=== PATIENT | female | born 1945 | race Caucasian/White ===

== ENCOUNTER 2022-01-19 13:17 | Inpatient (IN) ==
--- NOTE | 2022-01-20 12:19 | History & Physical Report ---
Date of Service January 20, 2022 Assessment & Plan (1) Pneumonia: Plan: Community acquired pneumonia in a 76 yo female chronic smoker with possible mass in Right lower lobe. Concern over pleural effusions. Consider consult with pulmonary, however chest x ray was ordered and this did not reveal a pleural effusion. Will cancel pulmonary consult as patient is not interested in bronchoscopy. LAMA and LABA was ordered and this will be started today. Anticipate patient will continue to improve slowly. Procal is negative. will continue oral antibiotics and place on daily solumedrol. Plan for 2 step in AM. (2) Diabetes mellitus type 2 with complications, uncontrolled: Plan: consult glycemic control A1C ordered (3) Tobacco abuse: Plan: will hold off nictoine patch for now. (4) Hypertension: Plan: BP at goal. will defer to morning team restarting atenolol, HCTZ dvt: heparn. DNR/DNI Admission and Anticipated Discharge Date Admission Date: January 20, 2022 History of Present Illness Chief Complaint: No improvement for pneumonia Primary Care Provider: Devan Neil PA-C Patient is a 76 year old female with PMH of emphysema, DM2, breast cancer S/P lumpectomy, Hypertension who presented to the ED of [facility] on 01/14/22 with increased SOB and Altered mental Status. Patient is a chronic smoker, smokes >2 packs of cigarettes a day. Upon arrival, patient was 77% on room air. She required 6 liters via nasal cannula in order to achieve an SPO02 of 93%. Workuo included a Negative CTA of chest for P/E. However, it showed a cavitated mass in right lower lobe with bibasilar pneumonia, and extensive airspace disease. During her hospital stay, patient required vancomycin, zosyn and solumedrol 40 mg IV Q6H. Throughout hospital stay, she continued to require 4 liters of nasal cannula and repeat x-rays did not show much improvement. On 01/18, patient received lasix, however pleural effusons appeared worse. On 01/18 antibiotics were switched to PO augmentin, azithromycin. Allergies Allergy/AdvReac Type Severity Reaction Status Date / Time No Known Drug Allergies Allergy Unknown . Verified 07/04/10 15:30 codeine AdvReac Intermediate N/V Verified 07/04/10 15:30 Home Medications Medication Instructions Recorded Confirmed Type Atenolol (Tenormin) 50 mg PO DAILY ##0 11/04/09 History Hydrochlorothiazide (Hctz *) 25 mg PO DAILY ##0 11/04/09 History Albuterol (Proair Hfa) PRN ##0 06/08/10 History CHLOROHEXIDINE GLUCO BID ##0 06/08/10 History SF 500PLUSTOOTHPASTE BID ##0 06/08/10 History Aspirin Enteric Coated (Ecotrin Or 325 mg PO BID 42 days ##0 07/08/10 History Generic *) Celecoxib (Celebrex *) 200 mg PO DAILY ##0 07/08/10 History OXYCODONE/ACETAMINOPHEN 5MG/325MG 1 - 2 tabs PO Q4-6HR PRN ##0 07/08/10 History (PERCOCET 5MG/325MG) Past Med/Surg History Social History Smoking Status: Current every day smoker Tobacco Cessation Education Requested by Patient: No Hx Alcohol Use: No Hx Substance Use: No Preferred Language: Nepali Neonatal Pediatric Nurse Required: No Beliefs That Will Affect Care: None Current Living Situation: Alone Other Information That Helps Us Care for You: No Feels Safe at Home: Yes Safety Concerns: Feels Safe At This Time Assistive Devices: None Review of Systems Constitutional: no fever and no body aches Eyes: no blind spots Ear, Nose, Mouth, Throat: no ear pain Respiratory: + cough and + dyspnea Cardiovascular: no chest pain Gastrointestinal: no abdominal pain Genitourinary: no dysuria Musculoskeletal: no back pain Integumentary: no acne Neurologic: no gait abnormality Psychiatric: no behavioral changes Endocrine: no fatigue Hematologic / Lymphatic: no easy bleeding Allergy / Immunological: no GI upset with certain foods Physical Exam Constitutional: WD/WN, vitals as above Eyes: PERRL, conjunctivae normal, anicteric sclerae ENMT: external ear and nose normal, oropharynx normal Neck: trachea midline, no thyromegaly Respiratory: normal respiratory effort, lungs clear to auscultation Cardiovascular: Rate/Rhythm: regular rhythm and + tachycardic Gastrointestinal (Abdomen): normal bowel sounds, soft, nontender, no hepatosplenomegaly Musculoskeletal: no cyanosis or clubbing, extremities motor strength 5/5 Skin: no rashes, warm and dry Neurologic: PERRL, EOMI, accommodation nl, no face palsy, no dysarthria Psychiatric: A+Ox3, euthymic affect Lymphatic: no cervical or axillary lymphadenopathy Results & Data Results & Data ([facility]) Vital Signs (Past 12 Hours) Vital Signs Temp Pulse Resp BP Pulse Ox O2 Del Method O2 Flow Rate 01/20/22 12:00 36.6 C 109 H 18 121/77 93 Nasal Cannula 3 01/20/22 10:54 36.7 C 102 H 16 124/77 94 Room Air 3 PG Care Time/CCT Total # of Minutes Spent Total Time Spent with Patient: Total time spent is greater than 50% in coordination of care (as documented) at patient's floor/unit and/or counseling patient: Coding Level of Care Code 32166 Initial Inpt Care Lvl 3 Diagnoses Pneumonia J18.9 Diabetes mellitus type 2 with complications, uncontrolled Tobacco abuse Z72.0 Hypertension I10
[2022-01-20] MEDS ORDERED: DEXTROSE 50% 50 ML SYRINGE IV PRN (13:20)
[2022-01-20] MEDS ORDERED: GLUCAGON FOR INJ 1 MG VIAL SQ PRN (13:20)
[2022-01-20] MEDS ORDERED: GLUCOSE 40% GEL 15 GM TUBE PO PRN (13:20)
[2022-01-20] MEDS ORDERED: GLUCOSE 10 TAB/TUBE PO PRN (13:20)
[2022-01-20] MEDS ORDERED: CARBOHYDRATES FOR HYPOGLYCEMIA PO PRN (13:20)
[2022-01-20 14:34] LABS: Basophils # (auto) 0.07 K/uL (0-0.2); Basophils % (auto) 0.5 %; Hematocrit (blood only) 46.3 % (34.1-44.9); Immature Granulocytes # (auto) 0.39 K/uL (0.00-0.02); Immature Granulocytes % (auto) 2.6 %; Lymphocytes % (auto) 7.4 %; Mean Corpuscular Hemoglobin 30.1 pg (25.0-34.0); Mean Corpuscular Hgb Conc 32.4 g/dL (32.0-36.0); Mean Platelet Volume 10.7 fL (9.4-12.3); Monocytes # (auto) 0.42 K/uL (0.24-0.82); Monocytes % (auto) 2.8 %; Neutrophils # (auto) 12.93 K/uL (1.4-6.5); Neutrophils % (auto) 86.7 %; Platelet Count 319 K/uL (130-400); RDW Coefficient of Variation 13.3 % (11.5-14.5); RDW Standard Deviation 45.2 fL (36.4-46.3); Red Blood Count 4.98 M/uL (3.93-5.22); White Blood Count 14.91 K/ul (4.8-10.8)
--- NOTE | 2022-01-20 14:45 | XRay Report ---
TWO VIEW CHEST CLINICAL HISTORY: Pleural effusions. FINDINGS: PA and lateral chest radiographs are compared to study dated 01/18/2022 and correlated with chest CT dated 01/13/2022. The heart is enlarged noting atherosclerotic calcification of the thoracic a meet. The pulmonary vasculature is noncongested. Emphysema and chronic interstitial thickening is sim ilar to previous. Right perihilar and basilar consolidation is likely unchanged from previous. There is also mild consolidative change at the left lung base. No pleural effusion or pneumothorax is seen. The skeletal structures are osteopenic. The bony thorax appears intact. Spondylotic change is seen t hroughout the thoracic spine. IMPRESSION: 1. Cardiomegaly and emphysema. 2. Right perihilar and basilar consolidation is likely unchanged from previous and was better charact erized on the 01/13/2022 CT scan. Correlate clinically for evidence of pneumonia/aspiration pneumonitis . Radiographic follow-up to resolution is recommended, as is a repeat chest CT in 1-2 months time to exclude the possibility of underlying neoplasm. 3. Minimal consolidation is seen at the left lung base. 4. No pleural effusion is identified. ACT 112: Positive. There are findings on this exam that require communication between the performing entity and the patient following Patient Test Result Information Act ([place] Act 112) guidelines. Electronically signed by: Tevin English M.D. 01/20/2022 2:44 PM
[2022-01-20 14:59] LABS: Estimated Average Glucose 171 mg/dl; Hemoglobin A1C 7.6 % (4.5-5.6)
[2022-01-20 15:06] LABS: Alanine Aminotransferase 13 U/L (7-52); Albumin Globulin Ratio 1.2 (0.9-2); Albumin Level 3.3 gm/dl (3.4-5.0); Alkaline Phosphatase 64 U/L (34-104); Aspartate Aminotransferase 10 U/L (13-39); BUN Creatinine Ratio 37.1 (10-20); Bilirubin,Total 0.5 mg/dl (0.2-1.0); Blood Urea Nitrogen 39 mg/dl (6-23); C Reactive Protein 1.09 mg/dl (0-0.5); Calcium 9.7 mg/dl (8.5-10.1); Carbon Dioxide > 45 mmol/L (21-32); Chloride 82 mmol/L (98-107); Creatinine Clr Calc Pharmacy 39.4 ml/min; Est GFR (African American) 58.9 ml/min; Est GFR (Non-African American) 50.8 ml/min; Globulin 2.8 gm/dl (2.5-4.0); Glucose 379 mg/dl (70-99(Fasting)); Potassium 4.4 mmol/L (3.5-5.1); Sodium 140 mmol/L (136-145); Total Protein 6.1 gm/dl (6.0-8.3)
[2022-01-20] MEDS ORDERED: PHARMACY GLYCEMIC MGMT CONSULT PRN (15:11)
[2022-01-20 15:37] LABS: Base Excess VBG 28.8 mEq/L; HCO3 VBG 58 mmol/L; Oxygen Saturation VBG 77.9 %; PCO2 VBG 76 mmHg (38-50); PO2 VBG 44 mmHg; pH VBG 7.49 (7.36-7.41)
[2022-01-20] MEDS ORDERED: INSULIN HUMAN REGULAR PER UNIT 5 UNITS in SYRINGE 4.95 ML IV ONE (17:15)
[2022-01-20] MEDS ORDERED: LANTUS PER UNIT CHARGE SQ ONE (17:15)
[2022-01-20] MEDS: UMECLIDINIUM/VILANTEROL 62.5/25MCG 7 PUFFS/INHALER INH SCH (17:26)
[2022-01-20] MEDS: INSULIN ASPART PER UNIT SC SCH ×2 (17:37→20:21)
[2022-01-20] MEDS: AMOXICILLIN/CLAVULANATE 875 MG TAB PO SCH (17:40)
[2022-01-20] MEDS: guaiFENesin 600 MG TABCR PO SCH (20:20)
[2022-01-20] MEDS: HEPARIN SOD 5,000 UNIT/0.5 ML VIAL SQ SCH (20:20)
[2022-01-21 07:29] LABS: Hematocrit (blood only) 49.4 % (34.1-44.9); Hemoglobin 15.7 g/dl (12.0-16.0); Mean Corpuscular Hemoglobin 29.9 pg (25.0-34.0); Mean Corpuscular Hgb Conc 31.8 g/dL (32.0-36.0); Mean Corpuscular Volume 94.1 fL (80.0-100.0); Mean Platelet Volume 10.2 fL (9.4-12.3); Platelet Count 325 K/uL (130-400); RDW Coefficient of Variation 13.4 % (11.5-14.5); RDW Standard Deviation 46.9 fL (36.4-46.3); Red Blood Count 5.25 M/uL (3.93-5.22); White Blood Count 14.76 K/ul (4.8-10.8)
--- NOTE | 2022-01-21 07:47 | Hospitalist Progress Note ---
Date of Service January 21, 2022 Assessment & Plan (1) Pneumonia: Plan: necrotizing pneumonia (however has been inpatient at outside hospital for past week) in a 76 yo female chronic smoker 22pd with possible mass in Right lower lobe/cavitating lesion in patient with hx breast lump/cancer s/p lumpectomy CT chest (prior CTA for PE negative outside facility) * 1. Interval decrease in size in the 4.8 x 3.4 cm irregular cavitary lesion within the right lower lobe as well as the additional 2.4 x 1.7 cm irregular nodule within the base the right lower lobe. These could related to an atypical infectious process such as a fungal infection or aspiration pneumonia given the decrease in size. However, a primary bronchogenic malignancy remains the diagnosis of exclusion for the larger cavitary lesion. Pulmonary consultation advised * 2. Significant improvement/resolution in the airspace opacities within the lung bases suggestive of a resolving pneumonia. * 3. Auxl-vq-rhukigjc emphysema again noted. * 4. A 3.1 cm round cystic focus within the right breast upper-outer quadrant/axilla. This remains unchanged. This could represent a postoperative seroma. A necrotic lymph node is considered less likely but not entirely excluded. This bears watching on future examinations. Breast does not appear infected, however in patient with recent R partial lumpectomy, not on chemo, did not receive radiation, Due to cavitary lesion, quantiferon gold testing sent, however pulmonary eval feels risk of TB is low, will have out of isolation 01/22/22 Remains on newly started LABA/LAMA, uses rescue inhaler at times at home Titrate O2 to maintain sats -- currently 90% on 3L Will need 2 step prior to dc (2) Breast cancer: Plan: reported hx of such, details unclear occurred R partial mastectomy sometime in 2020, call out to daughter for information as patient not on any oral chemotherapy and reportedly did not undergo any radiation (3) Tobacco abuse: Plan: will hold off nictoine patch for now. (4) Diabetes mellitus type 2 with complications, uncontrolled: Plan: consult glycemic control as BSgs elevated significantly to the 300s yesterday (likely from steroids) A1c obtained at 7.6 BSGs improved and appreciate continued glycemic management (5) Hypertension: Plan: BP at goal. atenolol for HR control, however holding HCTZ as slightly dehydrated dvt: heparn. DNR/DNI Admission and Anticipated Discharge Date Admission Date: January 20, 2022 Subjective Patient evaluated this morning, moved to isolation for airborne to room 106. Repeat CT chest reviewed with patient -- she is current 2ppd smoker as when asked if smokes "if I can get one". Did have history of lumpectomy last year, unsure of where this was completed. Still remains on oxygen but does not wear at home. Does endorse a "puffer" she uses for rescue from time to time. Currently no increased shortness of breath/cough/sputum production but hasn't been up out of bed much. Discussed possible TB testing as well as fungal appearance and asking pulmonary to weigh in/start antifungals but also concerns for underlying malignancy. No recent unexplained weight loss/night sweats that the patient recalls. No i ncreased LE edema/calf swelling or calf pain. Prior CT for PE at outside hospital negative for PE. Review of Systems Review of Systems: All systems reviewed & are unremarkable except as noted in HPI & below Physical Exam Physical Exam: General: WD, frail, chronically ill appearing female sitting up in bed, NAD HEENT: eyes anicteric, mm slightly dry, trachea midline without deviation Chest: s/p R partial mastectomy, no erythema/drainage, some axillary lymphadenopathy Resp: not tachypneic, no cough, able to speak in complete sentences, breath sounds diminished throughout, scattered crackles, coarse breath sounds, faint end expiratory wheezing, SpO2 90% on 3L NC, clubbing of nails CV: tachycardic, regular, no m/r/g, no calf edema/tenderness, pulses palpable GI: +BS, soft, nontender MSK/Neuro: moves all extremities, no focal deficit, no slurred speech or facial droop, no clonus Psych: alert and oriented to person/knows she is in the hospital, year Skin: cool, dry Results & Data Results & Data ([facility]) Vital Signs (Past 12 Hours) Vital Signs Temp Pulse Pulse Resp BP Pulse Ox O2 Del Method 01/21/22 07:44 36.7 C 93 H 18 136/84 94 01/21/22 07:15 93 H 01/21/22 03:30 36.8 C 87 20 161/90 H 96 01/20/22 23:37 36.8 C 99 H 20 134/78 96 01/20/22 22:15 100 H 01/20/22 21:00 Nasal Cannula O2 Flow Rate 01/21/22 07:44 3 01/21/22 07:15 01/21/22 03:30 2 01/20/22 23:37 2 01/20/22 22:15 01/20/22 21:00 3 Diagnostic Findings Chest X-Ray 01/20/22 13:13 TWO VIEW CHEST CLINICAL HISTORY: Pleural effusions. FINDINGS: PA and lateral chest radiographs are compared to study dated 01/18/2022 and correlated with chest CT dated 01/13/2022. The heart is enlarged noting atherosclerotic calcification of the thoracic aorta. The pulmonary vasculature is noncongested. Emphysema and chronic interstitial thickening is similar to previous. Right perihilar and basilar consolidation is likely unchanged from previous. There is also mild consolidative change at the left lung base. No pleural effusion or pneumothorax is seen. The skeletal structures are osteopenic. The bony thorax appears intact. Spondylotic change is seen throughout the thoracic spine. IMPRESSION: 1. Cardiomegaly and emphysema. 2. Right perihilar and basilar consolidation is likely unchanged from previous and was better characterized on the 01/13/2022 CT scan. Correlate clinically for evidence of pneumonia/aspiration pneumonitis. Radiographic follow-up to resolution is recommended, as is a repeat chest CT in 1-2 months time to exclude the possibility of underlying neoplasm. 3. Minimal consolidation is seen at the left lung base. 4. No pleural effusion is identified. ACT 112: Positive. There are findings on this exam that require communication between the performing entity and the patient following Patient Test Result Information Act ([place] Act 112) guidelines. Electronically signed by: Tevin English M.D. 01/20/2022 2:[address] 01/21/22 09:[address] WITH CONTRAST CT DOSE: 680.15 mGy.cm HISTORY: Abnormal chest x-ray. eval consolidative mass, hx breast ca s/p R lumpec TECHNIQUE: Multiaxial CT images of the chest were performed following the intravenous administration of contrast. A dose lowering technique was utilized adhering to the principles of ALARA. COMPARISON: Outside hospital chest CTA 01/13/2022. FINDINGS: No fractures within the visualized osseous structures. No suspicious lytic are blastic osseous lesions. No pneumothorax. Moderate emphysema is again noted. No pleural effusions. Interval improvement in the airspace opacities throughout the right lung. However, there is a thick-walled cavitary lesion remaining within the superior segment of the right lower lobe which abuts the pleural surface. This measures approximately 4.8 x 3.4 cm. This previously measured 6.4 cm. This also abuts the major fissure. There is a second focal irregular consolidation within the base the right lower lobe which has also decreased in size and measures 2.4 x 1.7 cm. This previously measured 3 cm. This appears to demonstrate a small focus of central necrosis. The central airways are patent. Calcified granuloma again noted within the right lower lobe. No new focal lung consolidations identified. The thyroid gland enhances normally. Calcified subcarinal and right hilar lymph nodes. No mediastinal or hilar lymphadenopathy. The central pulmonary arteries are patent. Moderate calcified plaque within the normal caliber thoracic aorta. No evidence for an aortic dissection. The heart is borderline enlarged. No pericardial effusion. Postoperative changes noted within the right breast. There is a 3.1 cm round cystic focus within the right breast upper-outer quadrant/axilla. This is not significantly changed and. Limited views of the upper abdomen demonstrate a normal liver, spleen, and adrenal glands. IMPRESSION: 1. Interval decrease in size in the 4.8 x 3.4 cm irregular cavitary lesion within the right lower lobe as well as the additional 2.4 x 1.7 cm irregular nodule within the base the right lower lobe. These could related to an atypical infectious process such as a fungal infection or aspiration pneumonia given the decrease in size. However, a primary bronchogenic malignancy remains the diagnosis of exclusion for the larger cavitary lesion. Pulmonary consultation advised 2. Significant improvement/resolution in the airspace opacities within the lung bases suggestive of a resolving pneumonia. 3. Ddap-hw-bbvcyzjg emphysema again noted. 4. A 3.1 cm round cystic focus within the right breast upper-outer quadrant/axilla. This remains unchanged. This could represent a postoperative seroma. A necrotic lymph node is considered less likely but not entirely excluded. This bears watching on future examinations. ACT 112: Negative or not required by law. Electronically signed by: Balbir Kent M.D. 01/21/2022 10:19 AM PG Care Time/CCT Total # of Minutes Spent Total Time Spent with Patient: Total time spent is greater than 50% in coordination of care (as documented) at patient's floor/unit and/or counseling patient: Coding Level of Care Code 06771 Subseq Hosp Care Lvl 3 Diagnoses Pneumonia J18.9 Breast cancer C50.919 Tobacco abuse Z72.0 Diabetes mellitus type 2 with complications, uncontrolled Hypertension I10
[2022-01-21 08:35] LABS: BUN Creatinine Ratio 44.3 (10-20); Blood Urea Nitrogen 43 mg/dl (6-23); Calcium 9.9 mg/dl (8.5-10.1); Carbon Dioxide > 45 mmol/L (21-32); Chloride 87 mmol/L (98-107); Creatinine Clr Calc Pharmacy 42.6 ml/min; Est GFR (African American) 64.8 ml/min; Est GFR (Non-African American) 55.9 ml/min; Glucose 90 mg/dl (70-99(Fasting)); Potassium 3.4 mmol/L (3.5-5.1); Sodium 143 mmol/L (136-145)
[2022-01-21] MEDS ORDERED: AZITHROMYCIN 250 MG TAB PO SCH (09:00)
[2022-01-21] MEDS ORDERED: methylPREDNISolone 40 MG in SYRINGE 0 ML IV SCH (09:00)
[2022-01-21] MEDS ORDERED: POTASSIUM CHLORIDE CRTAB 20 MEQ TABCR PO STA (09:04)
[2022-01-21] MEDS: AMOXICILLIN/CLAVULANATE 875 MG TAB PO SCH ×2 (09:06→18:00)
[2022-01-21] MEDS: INSULIN ASPART PER UNIT SC SCH ×4 (09:06→20:39)
[2022-01-21] MEDS: UMECLIDINIUM/VILANTEROL 62.5/25MCG 7 PUFFS/INHALER INH SCH (09:07)
[2022-01-21] MEDS: ASPIRIN 81 MG ECTAB PO SCH (09:07)
[2022-01-21] MEDS: guaiFENesin 600 MG TABCR PO SCH ×2 (09:07→20:39)
[2022-01-21] MEDS: HEPARIN SOD 5,000 UNIT/0.5 ML VIAL SQ SCH ×2 (09:12→20:39)
[2022-01-21] MEDS ORDERED: ATENOLOL 50 MG TABLET PO SCH (09:15)
[2022-01-21] MEDS ORDERED: OPTIRAY 320 100ml IV ONE (09:59)
--- NOTE | 2022-01-21 10:21 | CT Scan Report ---
CHEST CT WITH CONTRAST CT DOSE: 680.15 mGy.cm HISTORY: Abnormal chest x-ray. eval consolidative mass, hx breast ca s/p R lumpec TECHNIQUE: Multiaxial CT images of the chest were performed following the intravenous administration of contrast. A dose lowering technique was utilized adhering to the principles of ALARA. COMPARISON: Outside hospital chest CTA 01/13/2022. FINDINGS: No fractures within the visualized osseous structures. No suspicious lytic are blastic osse ous lesions. No pneumothorax. Moderate emphysema is again noted. No pleural effusions. Interval impro vement in the airspace opacities throughout the right lung. However, there is a thick-walled cavitary lesion remaining within the superior segment of the right lower lobe which abuts the pleural surface . This measures approximately 4.8 x 3.4 cm. This previously measured 6.4 cm. This also abuts the alexis r fissure. There is a second focal irregular consolidation within the base the right lower lobe which has also decreased in size and measures 2.4 x 1.7 cm. This previously measured 3 cm. This appears to demonstrate a small focus of central necrosis. The central airways are patent. Calcified granuloma a gain noted within the right lower lobe. No new focal lung consolidations identified. The thyroid glan d enhances normally. Calcified subcarinal and right hilar lymph nodes. No mediastinal or hilar lympha denopathy. The central pulmonary arteries are patent. Moderate calcified plaque within the normal carla iber thoracic aorta. No evidence for an aortic dissection. The heart is borderline enlarged. No peric ardial effusion. Postoperative changes noted within the right breast. There is a 3.1 cm round cystic focus within the right breast upper-outer quadrant/axilla. This is not significantly changed and. Faria ited views of the upper abdomen demonstrate a normal liver, spleen, and adrenal glands. IMPRESSION: 1. Interval decrease in size in the 4.8 x 3.4 cm irregular cavitary lesion within the right lower lob e as well as the additional 2.4 x 1.7 cm irregular nodule within the base the right lower lobe. These could related to an atypical infectious process such as a fungal infection or aspiration pneumonia g iven the decrease in size. However, a primary bronchogenic malignancy remains the diagnosis of exclus ion for the larger cavitary lesion. Pulmonary consultation advised 2. Significant improvement/resolution in the airspace opacities within the lung bases suggestive of a resolving pneumonia. 3. Lriy-ds-jecgupyq emphysema again noted. 4. A 3.1 cm round cystic focus within the right breast upper-outer quadrant/axilla. This remains unch anged. This could represent a postoperative seroma. A necrotic lymph node is considered less likely b ut not entirely excluded. This bears watching on future examinations. ACT 112: Negative or not required by law. Electronically signed by: Balbir Kent M.D. 01/21/2022 10:19 AM
[2022-01-21] MEDS ORDERED: VANCOMYCIN CONSULT ACTIVE PRN (10:51)
[2022-01-21] MEDS ORDERED: CEFEPIME 2,000 MG in SYRINGE 0 ML IV SCH (11:00)
[2022-01-21] MEDS ORDERED: VANCOMYCIN HCL 1,500 MG in SODIUM CHLORIDE 0.9% 500 ML IV ONE (11:30)
[2022-01-21] MEDS: FAMOTIDINE 20 MG in SYRINGE 3 ML IV SCH (11:38)
--- NOTE | 2022-01-21 12:05 | Pharmacy Report ---
Pharmacy PK ABX Note - Date of Service January 21, 2022 - Assessment and Plan Assessment 76 year old F receiving vancomycin/cefepime for treatment of cavitary pulmonary lesion. Pertinent microbiologic data includes: N/A. Day # 1 of antimicrobial therapy. Plan Vancomycin * Loading dose: 1500 mg IV every 24 hours * Maintenance dose: 1000 mg IV every 12 hours * Patient was on vancomycin 1000 mg IV q18 with a resultant trough of 12.2 - will start with vancomycin 1 gm IV q12 and order random level * Random level ordered for: 01/22/22 Pharmacy will continue to follow and will adjust dose/frequency as necessary. Thank you. Pharmacy has transitioned to AUC monitoring for vancomycin. AUC/BOB is the preferred PK/PD target and is associated with decreased risk of nephrotoxicity compared to traditional trough targets.
--- NOTE | 2022-01-21 12:43 | Pulmonary Consultation ---
Date of Consultation January 21, 2022 Assessment & Plan (1) Pneumonia: (2) Abnormal CT scan of lung: (3) COPD (chronic obstructive pulmonary disease): Plan Impression: 76-year-old female with history of tobacco abuse admitted with what appears to be necrotizing pneumonia or lung abscess. Short interval follow-up CT scan is demonstrated significant improvement in the radiographic abnormalities with treatment with antimicrobial agents. Cannot exclude an underlying malignancy. The patient does not want aggressive interventions performed including bronchoscopy. Given her clinical and radiographic improvement, would recommend completing a course of antibiotics and a short interval surveillance follow-up CT scan as noted below. Recommendations: 1. Lung abscess/necrotizing pneumonia: No indication for additional parenteral antibiotics. Agree with transition to Augmentin. Would recommend completing 4 to 6 weeks of antimicrobial therapy. Suspicion for other etiologies including fungal pneumonia or tuberculosis is quite low given the patient's clinical and radiographic improvement with antimicrobial therapy targeting only bacteria. I do not believe the patient requires respiratory isolation as she has no TB contacts, no other signs or symptoms to suggest tuberculosis, and again has had significant improvement without antituberculosis therapy. Will defer to the primary service. QuantiFERON has been sent and will await receipt. 2. She should have a follow-up noncontrast CT scan of the chest performed in 8 to 10 weeks. If the lesion persists, additional evaluation could be conducted including consideration of PET scan. The patient unfortunately expresses a reluctance to consider any invasive procedures including bronchoscopy or biopsy. 3. Agree with following up on her history of breast cancer as does not appear to be well delineated in her current electronic medical record. In addition, the patient relates that she has had prior pulmonary evaluations conducted. Finding out where these evaluations were conducted and getting copies of those records would be beneficial with regards to her underlying COPD. Smoking cessation was recommended to the patient. Outpatient pulmonary function testing may be performed if clinically appropriate. 4. The patient may require supplemental oxygen at discharge. She can continue to follow with her outpatient sports journalist although again were not able to ascertain who sees her or where she is seen 5. COPD: Severity unknown. She is not bronchospastic currently. No indication for additional steroids. Anoro scheduled and as needed albuterol/Atrovent. The above recommendations and plan were discussed with the patient at bedside. Questions were answered the best my ability. This point time I think the patient requires a prolonged course of antibiotics. She can likely be dismissed from the hospital with outpatient follow-up with her established sports journalist and primary care provider. Feel free to contact us with questions or concerns. Will sign off. History of Present Illness Attending Physician: Devan Kennedy MD History of Present Illness Asked by hospitalist to evaluate this patient with an abnormal CT scan. History is obtained from review of the electronic medical record and discussion with the hospitalists. The patient is not a reliable historian. Patient is a 76-year-old female with a history of tobacco abuse who reportedly is seen in the outpatient setting by a pulmonary provider but the patient cannot elucidate who she sees or where she sees them. There are no clinical notes in our system. The patient was admitted to [facility] ED 01/14/2022 with shortness of breath and altered mental status. She was hypoxemic. Chest x-ray showed a probable lung abscess in the right lower lobe. The patient was treated with vancomycin and Zosyn and Solu-Medrol. She remained hypoxemic and due to failure of the x-ray to respond, the patient was transferred here. Initially the patient was transferred here for thoracentesis however follow-up chest x-ray here demonstrated no significant pleural fluid. Prior to transfer the patient was placed on oral Augmentin and azithromycin. Since arriving here, the patient was transferred to [facility] due to concern about tuberculosis. She also had a follow-up CT scan performed which revealed significant improvement in the right lower lobe cavitary lesion consistent with response to antimicrobial therapy. The patient is not experiencing any hemoptysis. She states that she has a chronically productive cough and produces scant amount of white phlegm on a regular basis. She cannot tell me whether she has had prior pulmonary function testing performed. The patient has not had any known contacts with tuberculosis. She denies any fevers chills night sweats or unintentional weight loss. Her appetite is good. Her energy level is stable. Patient declines aggressive intervention including bronchoscopy or intubation if it were to be necessary. Allergies Allergy/AdvReac Type Severity Reaction Status Date / Time No Known Drug Allergies Allergy Unknown . Verified 07/04/10 15:30 codeine AdvReac Intermediate N/V Verified 07/04/10 15:30 Home Medications Medication Instructions Recorded Confirmed Type Atenolol (Tenormin) 50 mg PO DAILY ##0 11/04/09 History Hydrochlorothiazide (Hctz *) 25 mg PO DAILY ##0 11/04/09 History Albuterol (Proair Hfa) PRN ##0 06/08/10 History CHLOROHEXIDINE GLUCO BID ##0 06/08/10 History SF 500PLUSTOOTHPASTE BID ##0 06/08/10 History Aspirin Enteric Coated (Ecotrin Or 325 mg PO BID 42 days ##0 07/08/10 History Generic *) Celecoxib (Celebrex *) 200 mg PO DAILY ##0 07/08/10 History OXYCODONE/ACETAMINOPHEN 5MG/325MG 1 - 2 tabs PO Q4-6HR PRN ##0 07/08/10 History (PERCOCET 5MG/325MG) Patient History Social History Smoking Status: Current every day smoker Tobacco Cessation Education Requested by Patient: No Hx Alcohol Use: No Hx Substance Use: No Preferred Language: Dutch Siderographist Required: No Beliefs That Will Affect Care: None Current Living Situation: Alone Other Information That Helps Us Care for You: No Feels Safe at Home: Yes Safety Concerns: Feels Safe At This Time Assistive Devices: None Review of Systems Review of Systems: Please refer to admission H&P. No additions or deletions Physical Exam Constitutional: WD/WN, vitals as above Eyes: PERRL, conjunctivae normal, anicteric sclerae ENMT: external ear and nose normal, oropharynx normal Neck: trachea midline, no thyromegaly Respiratory: normal respiratory effort, lungs clear to auscultation Cardiovascular: Rate/Rhythm: regular rhythm and + tachycardic Gastrointestinal (Abdomen): normal bowel sounds, soft, nontender, no hepatosplenomegaly Musculoskeletal: no cyanosis or clubbing, extremities motor strength 5/5 Skin: no rashes, warm and dry Neurologic: PERRL, EOMI, accommodation nl, no face palsy, no dysarthria Psychiatric: A+Ox3, euthymic affect Lymphatic: no cervical or axillary lymphadenopathy Results & Data Results & Data ([facility]) Vital Signs (Past 12 Hours) Vital Signs Temp Pulse Pulse Resp BP BP Pulse Ox 01/21/22 08:00 01/21/22 10:09 103 H 24 132/63 90 01/21/22 10:00 01/21/22 07:44 36.7 C 93 H 18 136/84 94 07/16/22 07:15 93 H 01/21/22 03:30 36.8 C 87 20 161/90 H 96 O2 Del Method O2 Flow Rate 01/21/22 08:00 Nasal Cannula 3 01/21/22 10:09 Nasal Cannula 3 01/21/22 10:00 Nasal Cannula 3 01/21/22 07:44 3 01/21/22 07:15 01/21/22 03:30 2 Critical Care Results & Data Vital Signs (Past 12 Hours) Vital Signs Temp Pulse Pulse Resp BP BP Pulse Ox 01/21/22 08:00 01/21/22 10:09 103 H 24 132/63 90 01/21/22 10:00 01/21/22 07:44 36.7 C 93 H 18 136/84 94 01/21/22 07:15 93 H 01/21/22 03:30 36.8 C 87 20 161/90 H 96 O2 Del Method O2 Flow Rate 01/21/22 08:00 Nasal Cannula 3 01/21/22 10:09 Nasal Cannula 3 01/21/22 10:00 Nasal Cannula 3 01/21/22 07:44 3 01/21/22 07:15 01/21/22 03:30 2 Lab & Micro Results (Past 24 Hours) RBC 5.25 M/uL (3.93-5.22) H 01/21/22 WBC 14.76 K/ul (4.8-10.8) H 01/21/22 Hgb 15.7 g/dl (12.0-16.0) 01/21/22 Hct 49.4 % (34.1-44.9) H 01/21/22 MCV 94.1 fL (80.0-100.0) 01/21/22 MCH 29.9 pg (25.0-34.0) 01/21/22 MCHC 31.8 g/dL (32.0-36.0) L 01/21/22 RDW Standard Deviation 46.9 fL (36.4-46.3) H 01/21/22 RDW Coefficient of Variation 13.4 % (11.5-14.5) 01/21/22 Plt Count 325 K/uL (130-400) 01/21/22 MPV 10.2 fL (9.4-12.3) 01/21/22 Neutrophils (%) (Auto) 86.7 % 01/20/22 Lymphocytes (%) (Auto) 7.4 % 01/20/22 Monocytes # (Auto) 0.42 K/uL (0.24-0.82) 01/20/22 Eosinophils # (Auto) 0.00 K/uL (0-0.50) 01/20/22 Immature Granulocyte % (Auto) 2.6 % 01/20/22 Neutrophils # (Auto) 12.93 K/uL (1.4-6.5) H 01/20/22 Lymphocytes # (Auto) 1.10 K/uL (1.2-3.4) L 01/20/22 Monocytes # (Auto) 0.42 K/uL (0.24-0.82) 01/20/22 Eosinophils # (Auto) 0.00 K/uL (0-0.50) 01/20/22 Basophils # (Auto) 0.07 K/uL (0-0.2) 01/20/22 Immature Granulocyte # (Auto) 0.39 K/uL (0.00-0.02) H 01/20 Na 143 mmol/L (136-145) 01/21/22 K 3.4 mmol/L (3.5-5.1) L 01/21/22 Cl 87 mmol/L (98-107) L 01/21/22 CO2 > 45 mmol/L (21-32) H* 01/21/22 Anion Gap TNP 01/21/22 BUN 43 mg/dl (6-23) H 01/21/22 Creatinine 0.97 mg/dl (0.6-1.2) 01/21/22 Estimated GFR ( Amer) 64.8 ml/min 01/21/22 Estimated GFR (Non-Af Amer) 55.9 ml/min 01/21/22 BUN/Creatinine Ratio 44.3 (10-20) H 01/21/22 Glu 90 mg/dl (70-99(Fasting)) 01/21/22 Ca 9.9 mg/dl (8.5-10.1) 01/21/22 Total Bilirubin 0.5 mg/dl (0.2-1.0) 01/20/22 AST 10 U/L (13-39) L 01/20/22 ALT 13 U/L (7-52) 01/20/22 Alkaline Phosphatase 64 U/L (34-104) 01/20/22 TP 6.1 gm/dl (6.0-8.3) 01/20/22 Albumin 3.3 gm/dl (3.4-5.0) L 01/20/22 Globulin 2.8 gm/dl (2.5-4.0) 01/20/22 Albumin/Globulin Ratio 1.2 (0.9-2) 01/20/22 Mg 2.1 mg/dl (1.7-2.4) 01/21/22 07:10 Calcium Level 9.9 mg/dl (8.5-10.1) 01/21/22 07:10 Venous Blood pH 7.49 (7.36-7.41) H 01/20/22 15: Venous Blood Partial Pressure CO2 76 mmHg (38-50) H 01/20/22 : Venous Blood Partial Pressure O2 44 mmHg 01/20/22: Venous Blood HCO3 58 mmol/L 01/20/22: Venous Blood Base Excess 28.8 mEq/L 01/20/22: Venous Blood Oxygen Saturation 77.9 % 01/20/22 15: Diagnostic Findings (Past 24 Hours) Chest X-Ray 01/20/22 13:13 TWO VIEW CHEST CLINICAL HISTORY: Pleural effusions. FINDINGS: PA and lateral chest radiographs are compared to study dated 01/18/2022 and correlated with chest CT dated 01/13/2022. The heart is enlarged noting atherosclerotic calcification of the thoracic aorta. The pulmonary vasculature is noncongested. Emphysema and chronic interstitial thickening is similar to previous. Right perihilar and basilar consolidation is likely unchanged from previous. There is also mild consolidative change at the left lung base. No pleural effusion or pneumothorax is seen. The skeletal structures are osteopenic. The bony thorax appears intact. Spondylotic change is seen throughout the thoracic spine. IMPRESSION: 1. Cardiomegaly and emphysema. 2. Right perihilar and basilar consolidation is likely unchanged from previous and was better characterized on the 01/13/2022 CT scan. Correlate clinically for evidence of pneumonia/aspiration pneumonitis. Radiographic follow-up to resolution is recommended, as is a repeat chest CT in 1-2 months time to exclude the possibility of underlying neoplasm. 3. Minimal consolidation is seen at the left lung base. 4. No pleural effusion is identified. ACT 112: Positive. There are findings on this exam that require communication between the performing entity and the patient following Patient Test Result Information Act ([place] Act 112) guidelines. Electronically signed by: Tevin English M.D. 01/20/2022 2:[address] 01/21/22 09:[address] WITH CONTRAST CT DOSE: 680.15 mGy.cm HISTORY: Abnormal chest x-ray. eval consolidative mass, hx breast ca s/p R lumpec TECHNIQUE: Multiaxial CT images of the chest were performed following the intravenous administration of contrast. A dose lowering technique was utilized adhering to the principles of ALARA. COMPARISON: Outside hospital chest CTA 01/13/2022. FINDINGS: No fractures within the visualized osseous structures. No suspicious lytic are blastic osseous lesions. No pneumothorax. Moderate emphysema is again noted. No pleural effusions. Interval improvement in the airspace opacities throughout the right lung. However, there is a thick-walled cavitary lesion remaining within the superior segment of the right lower lobe which abuts the pleural surface. This measures approximately 4.8 x 3.4 cm. This previously measured 6.4 cm. This also abuts the major fissure. There is a second focal irregular consolidation within the base the right lower lobe which has also decreased in size and measures 2.4 x 1.7 cm. This previously measured 3 cm. This appears to demonstrate a small focus of central necrosis. The central airways are patent. Calcified granuloma again noted within the right lower lobe. No new focal lung consolidations identified. The thyroid gland enhances normally. Calcified subcarinal and right hilar lymph nodes. No mediastinal or hilar lymphadenopathy. The central pulmonary arteries are patent. Moderate calcified plaque within the normal caliber thoracic aorta. No evidence for an aortic dissection. The heart is borderline enlarged. No pericardial effusion. Postoperative changes noted within the right breast. There is a 3.1 cm round cystic focus within the right breast upper-outer quadrant/axilla. This is not significantly changed and. Limited views of the upper abdomen demonstrate a normal liver, spleen, and adrenal glands. IMPRESSION: 1. Interval decrease in size in the 4.8 x 3.4 cm irregular cavitary lesion within the right lower lobe as well as the additional 2.4 x 1.7 cm irregular nodule within the base the right lower lobe. These could related to an atypical infectious process such as a fungal infection or aspiration pneumonia given the decrease in size. However, a primary bronchogenic malignancy remains the d iagnosis of exclusion for the larger cavitary lesion. Pulmonary consultation advised 2. Significant improvement/resolution in the airspace opacities within the lung bases suggestive of a resolving pneumonia. 3. Hljw-qu-ddikduoj emphysema again noted. 4. A 3.1 cm round cystic focus within the right breast upper-outer quadrant/axilla. This remains unchanged. This could represent a postoperative seroma. A necrotic lymph node is considered less likely but not entirely excluded. This bears watching on future examinations. ACT 112: Negative or not required by law. Electronically signed by: Balbir Kent M.D. 01/21/2022 10:19 AM I & O Totals 24 Hours 01/20/22 01/21/22 01/22/22 06:59 06:59 06:59 Intake Total 745 / 745 Balance 745 / 745 Cumulative 01/19/22 thru 01/21/22 09:59 Intake Total 745 Balance 745 RT Ventilator Mngmt (Last Documented) Ventilator Ordered Settings Respiratory Rate 24 01/21/22 10:09 Ventilator - PT Measurements Respiratory Rate 24 PG Care Time/CCT Total # of Minutes Spent Total Time Spent with Patient: Total time spent is greater than 50% in coordination of care (as documented) at patient's floor/unit and/or counseling patient: Coding Level of Care Code 68600 Initial Inpt Care Lvl 3 Diagnoses Pneumonia J18.[address] scan of lung R91.8 COPD (chronic obstructive pulmonary disease) J44.9
--- NOTE | 2022-01-21 14:19 | Pharmacy Report ---
Pharmacy Glycemic Short Note 2 - Date of Service January 21, 2022 - Glycemic Short BSG Results (Last 24 hours): 01/20/22 01/20/22 01/20/22 14:08 16:31 16:35 Glucose 379 H* POC Glucose 317 H* 364 H* 01/20/22 01/20/22 01/20/22 20:00 22:31 22:50 Glucose POC Glucose 98 67 L* 113 H 01/21/22 01/21/22 01/21/22 02:07 05:04 07:10 Glucose 90 POC Glucose 85 95 01/21/22 01/21/22 07:31 11:34 Glucose POC Glucose 80 140 H OUTPATIENT ANTIDIABETIC REGIMEN: * N/A * HBA1C= 7.6% (01/20/22) ASSESSMENT: * Ms Peter is a 76 y/o F who was a direct admission from [facility] - patient was receiving Solu-Medrol 40 mg IV q6 hours there. * BSG on admission was 379 mg/dL. * Patient given lantus 25 units (full weight-based stress of 2) + IV insulin 5 unit bolus for severe hyperglycemia. * BSGs corrected nicely and BSGs have remained lower overnight from 67-95 mg/dL. * Patient received Solu-Medrol 40 mg IV x 1 today. * BSGs today are 80-140 mg/dL. Patient did not eat breakfast. * For Lantus, will give Lantus 12 units starting at dinnertime. Patient received steroids + has a HbA1C of 7.6% indicating she has some basal deficiency. This represents half of weight-based stress of 2. * Novolog weight-based stress of 3 for steroid hyperglycemia. Loosen tomorrow since steroids will be d/c'ed. PLAN FOR INPATIENT GLYCEMIC CONTROL: * Basal insulin * Lantus 12 units SQ HS * Bolus insulin * NovoLog per scale ACHS or Q6hrs while NPO * Goal Range: Low 110 mg/dL - High 140 mg/dL * Correction Factor: 20 mg/dL/unit * Nutritional / Prandial insulin per carb ratio of 1 unit per 6 grams CHO consumed
[2022-01-21] MEDS ORDERED: LANTUS PER UNIT CHARGE SQ ONE ×2 (17:00→21:30)
[2022-01-21] MEDS ORDERED: VANCOMYCIN HCL 1,000 MG in SODIUM CHLORIDE 0.9% 250 ML IV SCH (23:00)
[2022-01-22 05:39] LABS: Basophils # (auto) 0.09 K/uL (0-0.2); Basophils % (auto) 0.6 %; Eosinophils # (auto) 0.37 K/uL (0-0.50); Eosinophils % (auto) 2.4 %; Hematocrit (blood only) 46.2 % (34.1-44.9); Hemoglobin 14.8 g/dl (12.0-16.0); Immature Granulocytes # (auto) 0.43 K/uL (0.00-0.02); Immature Granulocytes % (auto) 2.8 %; Lymphocytes # (auto) 3.05 K/uL (1.2-3.4); Lymphocytes % (auto) 19.9 %; Mean Corpuscular Hemoglobin 29.9 pg (25.0-34.0); Mean Corpuscular Volume 93.3 fL (80.0-100.0); Monocytes # (auto) 0.95 K/uL (0.24-0.82); Monocytes % (auto) 6.2 %; Neutrophils # (auto) 10.41 K/uL (1.4-6.5); Neutrophils % (auto) 68.1 %; Platelet Count 304 K/uL (130-400); RDW Coefficient of Variation 13.6 % (11.5-14.5); RDW Standard Deviation 46.5 fL (36.4-46.3); Red Blood Count 4.95 M/uL (3.93-5.22)
[2022-01-22 06:06] LABS: Alanine Aminotransferase 12 U/L (7-52); Albumin Globulin Ratio 1.2 (0.9-2); Albumin Level 3.3 gm/dl (3.4-5.0); Alkaline Phosphatase 64 U/L (34-104); Aspartate Aminotransferase 11 U/L (13-39); BUN Creatinine Ratio 37.5 (10-20); Bilirubin,Total 0.5 mg/dl (0.2-1.0); Blood Urea Nitrogen 36 mg/dl (6-23); Calcium 9.6 mg/dl (8.5-10.1); Carbon Dioxide > 45 mmol/L (21-32); Chloride 92 mmol/L (98-107); Creatinine Clr Calc Pharmacy 43.1 ml/min; Est GFR (African American) 65.7 ml/min; Est GFR (Non-African American) 56.6 ml/min; Globulin 2.8 gm/dl (2.5-4.0); Glucose 142 mg/dl (70-99(Fasting)); Magnesium 2.2 mg/dl (1.7-2.4); Potassium 4.1 mmol/L (3.5-5.1); Sodium 141 mmol/L (136-145); Total Protein 6.1 gm/dl (6.0-8.3)
[2022-01-22] MEDS: INSULIN ASPART PER UNIT SC SCH ×4 (08:15→21:31)
[2022-01-22] MEDS: ASPIRIN 81 MG ECTAB PO SCH (08:16)
[2022-01-22] MEDS: AMOXICILLIN/CLAVULANATE 875 MG TAB PO SCH ×2 (08:16→18:12)
[2022-01-22] MEDS: guaiFENesin 600 MG TABCR PO SCH ×2 (08:17→21:33)
[2022-01-22] MEDS: HEPARIN SOD 5,000 UNIT/0.5 ML VIAL SQ SCH ×2 (08:18→21:33)
[2022-01-22] MEDS: FAMOTIDINE 20 MG in SYRINGE 3 ML IV SCH (08:20)
[2022-01-22] MEDS: UMECLIDINIUM/VILANTEROL 62.5/25MCG 7 PUFFS/INHALER INH SCH (08:21)
--- NOTE | 2022-01-22 16:48 | Hospitalist Progress Note ---
Date of Service January 22, 2022 Assessment & Plan (1) Pneumonia: Plan: necrotizing mass in right lower lung, consider necrotizing pneumonia (however has been inpatient at outside hospital for past week) in a 76 yo female chronic smoker 22pd with possible mass in Right lower lobe/cavitating lesion in patient with hx breast lump/cancer s/p lumpectomy CT chest (prior CTA for PE negative outside facility) * 1. Interval decrease in size in the 4.8 x 3.4 cm irregular cavitary lesion within the right lower lobe as well as the additional 2.4 x 1.7 cm irregular nodule within the base the right lower lobe. These could related to an atypical infectious process such as a fungal infection or aspiration pneumonia given the decrease in size. However, a primary bronchogenic malignancy remains the diagnosis of exclusion for the larger cavitary lesion. Pulmonary consultation advised * 2. Significant improvement/resolution in the airspace opacities within the lung bases suggestive of a resolving pneumonia. * 3. Esri-yq-dfgklugv emphysema again noted. * 4. A 3.1 cm round cystic focus within the right breast upper-outer quadrant/axilla. This remains unchanged. This could represent a postoperative seroma. A necrotic lymph node is considered less likely but not entirely excluded. This bears watching on future examinations. Breast does not appear infected, however in patient with recent R partial lumpectomy, not on chemo, did not receive radiation, Due to cavitary lesion, quantiferon gold testing sent, however pulmonary eval feels risk of TB is low, will have out of isolation 01/22/22 Remains on newly started LABA/LAMA, uses rescue inhaler at times at home Titrate O2 to maintain sats -- currently 90% on 3L Will need 2 step prior to dc (2) Respiratory failure with hypoxia: Plan: pt will likely need supplemental oxygen therapy due to copd, her mass lesion is also influencing (3) Breast cancer: Plan: reported hx of such, details unclear occurred R partial mastectomy sometime in 2020, call out to daughter for information as patient not on any oral chemotherapy and reportedly did not undergo any radiation (4) Tobacco abuse: Plan: will hold off nictoine patch for now. (5) Diabetes mellitus type 2 with complications, uncontrolled: Plan: consult glycemic control as BSgs elevated significantly to the 300s yesterday (likely from steroids) A1c obtained at 7.6 BSGs improved and appreciate continued glycemic management (6) Hypertension: Plan: BP at goal. atenolol for HR control, however holding HCTZ as slightly dehydrated dvt: heparn. DNR/DNI Admission and Anticipated Discharge Date Admission Date: January 20, 2022 Subjective Pt states she feels improved but requires oxygen to keep saturations in range, pre illness was not on oxygen she states she has non productive cough and feels no other issues Review of Systems Review of Systems: Exertional fatigue no headache, no visual changes no speech or swallowing issues no chest pain, pressure or palpitations Dyspnea on exertion with nonproductive cough no wheezes no abdominal pain, nausea or vomiting, diarrhea or constipation no dysuria, hematuria or frequency no focal joint pain or swelling no back pain, CVA tenderness or radicular pain no bruising, bleeding or rashes no focal signs of weakness or numbness or altered sensation no complaints of anxiety or depression.. Physical Exam Physical Exam: The patient appeared stable on supplemental oxygen Vital signs as documented. Lungs are diminished at the right base Cardiac exam, Rhythm is regular.. No murmurs, rubs or gallops. Abdominal exam reveals normal bowel sounds, soft non tender, no masses Extremities are nonedematous and both pedal pulses are normal. Neurologic exam is alert and oriented, no focal loss of strength or sensation Skin is without bruises or rashes Psychologically is without concerns for anxiety or depression. Results & Data Results & Data ([facility]) Vital Signs (Past 12 Hours) Vital Signs Temp Pulse Pulse Resp BP BP BP 01/22/22 15:42 98.2 F 91 H 19 112/66 01/22/22 15:03 67 01/22/22 11:14 01/22/22 11:00 70 16 116/65 01/22/22 09:39 69 01/22/22 07:16 59 L 18 108/56 L 01/22/22 07:16 98.1 F Pulse Ox O2 Del Method O2 Flow Rate 01/22/22 15:42 94 Nasal Cannula 3 01/22/22 15:03 01/22/22 11:14 Nasal Cannula 2 01/22/22 11:00 96 Nasal Cannula 2 01/22/22 09:39 01/22/22 07:16 92 Nasal Cannula 4 01/22/22 07:16 PG Care Time/CCT Total # of Minutes Spent Total Time Spent with Patient: Total time spent is greater than 50% in coordination of care (as documented) at patient's floor/unit and/or counseling patient: Coding Level of Care Code 24696 Subseq Hosp Care Lvl 2 Diagnoses Pneumonia J18.9 Respiratory failure with hypoxia J96.91 Breast cancer C50.919 Tobacco abuse Z72.0 Diabetes mellitus type 2 with complications, uncontrolled Hypertension I10
[2022-01-22] MEDS ORDERED: LANTUS PER UNIT CHARGE SQ ONE (21:00)
[2022-01-23] MEDS: HEPARIN SOD 5,000 UNIT/0.5 ML VIAL SQ SCH (08:32)
[2022-01-23] MEDS: ASPIRIN 81 MG ECTAB PO SCH (08:33)
[2022-01-23] MEDS: AMOXICILLIN/CLAVULANATE 875 MG TAB PO SCH (08:33)
[2022-01-23] MEDS: guaiFENesin 600 MG TABCR PO SCH (08:33)
[2022-01-23] MEDS: UMECLIDINIUM/VILANTEROL 62.5/25MCG 7 PUFFS/INHALER INH SCH (08:34)
[2022-01-23] MEDS: INSULIN ASPART PER UNIT SC SCH (08:38)
[2022-01-23] MEDS: FAMOTIDINE 20 MG in SYRINGE 3 ML IV SCH (08:38)
[2022-01-23 09:46] LABS: Creatinine Clr Calc Pharmacy 56.3 ml/min; Est GFR (African American) 88.5 ml/min; Est GFR (Non-African American) 76.3 ml/min
--- NOTE | 2022-01-23 17:51 | Discharge Summary ---
Date of Service January 23, 2022 Admission HPI Per Admitting Provider Patient is a 76 year old female with PMH of emphysema, DM2, breast cancer S/P lumpectomy, Hypertension who presented to the ED of [facility] on 01/14/22 with increased SOB and Altered mental Status. Patient is a chronic smoker, smokes >2 packs of cigarettes a day. Upon arrival, patient was 77% on room air. She required 6 liters via nasal cannula in order to achieve an SPO02 of 93%. Workuo included a Negative CTA of chest for P/E. However, it showed a cavitated mass in right lower lobe with bibasilar pneumonia, and extensive airspace disease. During her hospital stay, patient required vancomycin, zosyn and solumedrol 40 mg IV Q6H. Throughout hospital stay, she continued to require 4 liters of nasal cannula and repeat x-rays did not show much improvement. On 01/18, patient received lasix, however pleural effusons appeared worse. On 01/18 antibiotics were switched to PO augmentin, azithromycin. Principal Diagnosis acute respiratory failure hypoxia Cavitary lung lesion suspected to be malignant Discharge Exam The patient appeared stable she does have respiratory distress worsen with exertion Vital signs as documented. Lungs are diminished with decreased breath sounds on the right Cardiac exam, Rhythm is regular.. No murmurs, rubs or gallops. Abdominal exam reveals normal bowel sounds, soft non tender, no masses Extremities are nonedematous and both pedal pulses are normal. Neurologic exam is alert and oriented, no focal loss of strength or sensation Skin is without bruises or rashes Psychologically is without concerns for anxiety or depression. Discharge Data Allergies Allergy/AdvReac Type Severity Reaction Status Date / Time No Known Drug Allergies Allergy Unknown . Verified 07/04/10 15:30 codeine AdvReac Intermediate N/V Verified 07/04/10 15:30 Consultations 01/21/22 07:52 Consult Pulmonology Routine 01/21/22 15:31 HIM [Consult Health Information Management] Routine Ordered Studies 01/21/22 09:05 CT chest diagnostic w con Routine Hospital Course (1) Pneumonia: necrotizing mass in right lower lung, consider necrotizing pneumonia (however has been inpatient at outside hospital for past week) in a 76 yo female chronic smoker 22pd with possible mass in Right lower lobe/cavitating lesion in patient with hx breast lump/cancer s/p lumpectomy CT chest (prior CTA for PE negative outside facility) * 1. Interval decrease in size in the 4.8 x 3.4 cm irregular cavitary lesion within the right lower lobe as well as the additional 2.4 x 1.7 cm irregular nodule within the base the right lower lobe. These could related to an atypical infectious process such as a fungal infection or aspiration pneumonia given the decrease in size. However, a primary bronchogenic malignancy remains the diagnosis of exclusion for the larger cavitary lesion. Pulmonary consultation advised * 2. Significant improvement/resolution in the airspace opacities within the lung bases suggestive of a resolving pneumonia. * 3. Gowq-gj-ozhyepzo emphysema again noted. * 4. A 3.1 cm round cystic focus within the right breast upper-outer quadrant/axilla. This remains unchanged. This could represent a postoperative seroma. A necrotic lymph node is considered less likely but not entirely excluded. This bears watching on future examinations. Breast does not appear infected, however in patient with recent R partial lumpectomy, not on chemo, did not receive radiation, Due to cavitary lesion, quantiferon gold testing sent, however pulmonary eval feels risk of TB is low, will have out of isolation 01/22/22, patient discharged home prior to quant to [facility] results Remains on newly started LABA/LAMA, uses rescue inhaler at times at home O2 to maintain sats -patient requires 2 L at rest 3 L on exertion home oxygen was arranged Patient will have pulmonary follow-up for possible bronchoscopy and diagnosis of this mass. Patient however was questioning her compliance even with oxygen and unclear whether she will continue to follow-up for her lesion. (2) Respiratory failure with hypoxia: pt needs supplemental oxygen therapy due to copd, her mass lesion is also influencing (3) Breast cancer: reported hx of such, details unclear occurred R partial mastectomy sometime in 2020, call out to daughter for information as patient not on any oral chemotherapy and reportedly did not undergo any radiation (4) Tobacco abuse: will hold off nictoine patch for now. (5) Diabetes mellitus type 2 with complications, uncontrolled: consult glycemic control as BSgs elevated significantly to the 300s yesterday (likely from steroids) A1c obtained at 7.6 BSGs improved and appreciate continued glycemic management (6) Hypertension: BP at goal. Patient will not take atenolol at home for blood pressure control and did not wish to continue this DNR/DNI Total Time Total Time Spent Total Time Spent (In Minutes): It required greater than 30 minutes to prepare this patient for discharge Discharge Plan Discharge Items Patient Disposition: Home - Self-Care Reason For Visit: pleural effusion Discharge Diagnosis: pneumonia lung mass need for home oxygen Activity: Per Instructions section Activity Comment: avoid overly strenous exercise or activity Non-emergency contact: Primary Care Provider and Senior Major Gifts Officer Call non-emergency contact if: your symptoms worsen and you have a fever Follow-up/Referrals: David Ross MD [Physician] - 01/24/22 10:15 am Devan Neil PA-C [Primary Care Provider] - (PLEASE CALL YOUR PRIMARY CARE PROVIDER TO SCHEDULE A DISCHARGE FOLLOW-UP APPOINTMENT WITHIN 7-10 DAYS.) Diet: Regular Addtl Attending Provider Instructions: Please finish all your antibiotics and follow up with your primary care Please also follow up with the lung specialists for further care regarding your lung mass Pending Studies at Discharge: No Stand-Alone Forms: My [facility], Smoking Cessation Medications and DC Order Prescriptions: New amoxicillin-pot clavulanate 875-125 mg Tablet 1 tab PO BIDM Qty: 14 0RF Anoro Ellipta 62.5-25 mcg/actuation Blister With Device 1 ea inhalation DAILY Qty: 60 0RF aspirin 81 mg Tablet,Delayed Release (Dr/Ec) 81 mg PO QAM Qty: 30 0RF (DME) Oxygen Home Liters Per Minute See Rx Instructions .ROUTE Qty: 1 0RF Rx Instructions: As directed albuterol sulfate 90 mcg/actuation HFA aerosol inhaler 2 inh inhalation Q6H PRN (Reason: shortness of breath or wheezing) Qty: 6.7 1RF Mucinex 1,200 mg tablet extended release 12hr 1,200 mg PO BID Qty: 20 0RF Nasal Kaiser (sodium chloride) 0.65 % aerosol,spray 1 spray intranasal BID PRN (Reason: dry nasal passages) Qty: 44 0RF (DME) Ultra-Light Rollator Misc See Rx Instructions .Route Qty: 1 0RF Rx Instructions: As directed Discontinued Atenolol (Tenormin) 50 MG tablet 50 mg PO DAILY Qty: 0 Hydrochlorothiazide (Hctz *) 25 MG tablet 25 mg PO DAILY Qty: 0 Albuterol (Proair Hfa) AEROSOL,SOLN PRN Qty: 0 CHLOROHEXIDINE GLUCO BID Qty: 0 SF 500PLUSTOOTHPASTE BID Qty: 0 Aspirin Enteric Coated (Ecotrin Or Generic *) 325 MG ENTERIC COATED TAB 325 mg PO BID 42 Days Qty: 0 Celecoxib (Celebrex *) 200 MG capsule 200 mg PO DAILY Qty: 0 OXYCODONE/ACETAMINOPHEN 5MG/325MG (PERCOCET 5MG/325MG) tablet 1 - 2 tabs PO Q4-6HR PRN Qty: 0 Label Comments: PAIN Discharge Orders: Discharge Order (Routine); Ordered 01/23/22 Ordered By: Dvean Corrales/Other Patient Handouts: Managing Type 2 Diabetes Admission Data Admit Date/Time: 01/20/22 13:01 Attending Provider: Devan Kennedy Admit Provider: Stas Patel Primary Care Provider: Devan Neil Other Providers: David Ross Other Interventions: Discharge Summary Assessment (RN) Last Done: 01/23/22 10:30 Coding Level of Care Code D/C DAY MANAGEMENT >30 MINS Diagnoses Pneumonia J18.9 Respiratory failure with hypoxia J96.91 Breast cancer C50.919 Tobacco abuse Z72.0 Diabetes mellitus type 2 with complications, uncontrolled Hypertension I10
[2022-01-24 11:51] LABS: Quantiferon Mitogen-NIL >10.00 IU/mL; Quantiferon NIL 0.03 IU/mL; Quantiferon TB Gold Plus NEGATIVE (NEGATIVE)
[2022-01-26 18:40] LABS: Fungitell (1-3)-B-D-Glucan <31 pg/mL
== END 2022-01-23 13:36 | disposition home or self-care (01) | DRG 180 ==
LOC: 2N 01-20 10:27 → SUATTDRO 01-20 10:27 → 1E 01-21 09:50 → 2N 01-22 09:17

== ENCOUNTER 2024-04-09 16:44 | Inpatient (IN) ==
--- NOTE | 2024-04-09 17:40 | Emergency Department Note ---
Impression & Plan Pneumonia, RICKY (acute kidney injury), Elevated troponin I level, Chronic respiratory acidosis ED Provider Note NAME: NORMA MONTAGUE AGE: 79 SEX: F : 1945 ARRIVES VIA: Ambulance INFORMANT: Patient, ED PROVIDER(S): Sunny Badillo DO CHIEF COMPLAINT: Difficulty breathing HPI: The patient is an 79-year-old female who presented to the emergency department for altered mental status. The patient normally lives at home alone. She is on nasal cannula oxygen. The patient was confused. Her daughter called 911 when she found her confused. There was no reported trauma. There is no reported vomiting or seizure. There is no reported fever. The patient had her oxygen placed and started to improve. At this time the patient offers no complaints. ROS: See above HPI for pertinent positives & negatives. A total of 10 systems reviewed and were otherwise negative. PAST MEDICAL HISTORY: See Below PAST SURGICAL HISTORY: See Below FAMILY HISTORY: See Below SOCIAL HISTORY: See Below HOME MEDICATIONS: See Below ALLERGIES: See Below VITALS: See Below PHYSICAL EXAMINATION: GENERAL: The patient is listless but responds to loud verbal stimuli. EYES: The conjunctivae are clear. The pupils are round and reactive. EARS, NOSE, MOUTH AND THROAT: The nose is without any evidence of any deformity. NECK: The neck is nontender and supple. RESPIRATORY: Shallow diminished respiratory effort was noted. There is no obvious wheezing. CARDIOVASCULAR: Regular rate and rhythm noted there no murmurs rubs or gallops normal S1 normal S2. GASTROINTESTINAL: The abdomen is soft. Abdomen is nontender. BACK: Severe kyphoscoliosis was noted. MUSCULOSKELETAL/EXTREMITIES: There is no evidence of gross deformity full range of motion is noted in the hips and shoulders. SKIN: Skin is warm and dry. Pedal edema was noted bilaterally. NEUROLOGIC: Patient is awake to verbal commands. She is oriented to person and place. She does not appear to have unilateral weakness. Strength was diminished but symmetric. MEDICAL DECISION MAKING: The patient is an 79-year-old female who presented to the emergency department via ambulance for an evaluation of altered mental status and difficulty breathing. The patient's daughter went to check on her. She normally lives alone. The patient has significant breathing issues. She normally wears oxygen. Upon arrival the prehospital personnel placed the patient's oxygen on and she slowly started to respond better. I discussed the patient's laboratory and radiographic studies with her and her daughter. It is unsure what interventions the patient wants at this time. She has a history of lung mass as well as breast cancer. She was treated with antibiotics. I discussed her condition with the on-call [facility] hospitalist. They will evaluate the patient in the emergency department for further inpatient management. The patient may require further imaging to further evaluate the cause of her breathing difficulty as well as her altered mental status. Triage Nursing notes reviewed. Prior medical records reviewed Vital Signs: reviewed and remarkable for tension and tachycardia. Differential diagnosis: Reactive airway disease, pneumonia, pneumothorax, COPD, CHF, infections, cardiac ischemia, pulmonary embolism, musculoskeletal, gastrointestinal, as well as other pathologies. ER treatment provided: See below Diagnostics interpreted by me: ECG: EKG was obtained in the emergency department. My interpretation is sinus rhythm at 100 bpm. There is no ectopy. Low voltage was noted throughout. There was no acute ST segment abnormalities. Cardiac Monitoring: An order was placed for continuous cardiac monitoring. The monitor shows a rate of 108 bpm with sinus rhythm. Laboratory studies: As stated above and show below. Imaging studies: See below. Radiographic imaging was reviewed by myself Consultation(s): I discussed this case with Dr. Sheikh who is on-call for [facility]. Past Med/Surg History Problem List (Updated 04/09/24 @ 18:45 by Sunny Badillo DO) Chronic respiratory acidosis (Acute) Elevated troponin I level (Acute) RICKY (acute kidney injury) (Acute) Lung mass Respiratory failure with hypoxia COPD (chronic obstructive pulmonary disease) Abnormal CT scan of lung Breast cancer Hypertension Tobacco abuse Diabetes mellitus type 2 with complications, uncontrolled Pneumonia (Acute) Medical History HTN (hypertension) COPD (chronic obstructive pulmonary disease) Diabetes Surgical History Hx of partial mastectomy History of bilateral knee replacement Hx of hernia repair Social History Smoking Status: Former smoker Do You Dip or Chew Tobacco: No; Hx Alcohol Use: No Hx Substance Use: No Preferred Language: Jamaican Communication Ability: Effective Education Program Associate Required: No Beliefs That Will Affect Care: None Current Living Situation: Alone Feels Safe at Home: Yes Assistive Devices: Cane, Glasses and Oxygen - Continuous Allergies Allergies Allergy/AdvReac Type Severity Reaction Status Date / Time codeine AdvReac Intermediate N/V Verified 11/08/22 09:58 Home Meds Home Medications Medication Instructions Recorded Confirmed hydrochlorothiazide 25 mg tablet 25 mg PO DAILY 04/24/22 11/08/22 lisinopril 5 mg tablet 5 mg PO DAILY 04/24/22 11/08/22 metformin 500 mg tablet 500 mg PO DAILY 04/24/22 11/08/22 Previous Rx's Medication Instructions Recorded Oxygen Home #1 ea 01/23/22 albuterol sulfate 90 mcg/actuation 2 inh inhalation Q6H PRN shortness 01/23/22 aerosol inhaler of breath or wheezing #6.7 grams aspirin 81 mg tablet,delayed 81 mg PO QAM #30 tabs 01/23/22 release walker (Ultra-Light Rollator misc) #1 ea 01/23/22 Oxygen Home #1 ea 03/14/22 tiotropium 2.5 mcg-olodaterol 2.5 2 puff inhalation DAILY #4 grams 10/20/22 mcg/actuation mist for inhalation (Stiolto Respimat) Results & Data (ED) Vital Signs Vital Signs - 24 hr 04/09/24 16:40 04/09/24 16:48 04/09/24 17:15 Temperature 36.5 C Temperature Source Oral Pulse Rate 103 H 103 H Pulse Rate [Apical] Respiratory Rate 21 Respiratory Depth Normal Blood Pressure 100/65 Blood Pressure [Right Arm] Blood Pressure Mean 76 Blood Pressure Mean [Right Arm] Blood Pressure Position Semi-fowlers Pulse Oximetry 97 Oxygen Delivery Method Nasal Cannula Nasal Cannula Oxygen Flow Rate 2 2 Sepsis Recent Fever Within 48 Hours No Sepsis New/Unexplained Change in Mental Status No Sepsis Action Taken by Nursing No Action Required 04/09/24 17:23 04/09/24 18:40 Temperature Temperature Source Pulse Rate Pulse Rate [Apical] 108 H Respiratory Rate 26 H Respiratory Depth Blood Pressure Blood Pressure [Right Arm] 86/51 L Blood Pressure Mean Blood Pressure Mean [Right Arm] 62 Blood Pressure Position Pulse Oximetry 96 Oxygen Delivery Method Room Air Nasal Cannula Oxygen Flow Rate 2 Sepsis Recent Fever Within 48 Hours Sepsis New/Unexplained Change in Mental Status Sepsis Action Taken by Group Home Medications Current Medication List: was personally reviewed by me Laboratory Data Attestation: I reviewed the patient's lab results. 04/09/24 17:56 04/09/24 17:56 Lab Results 04/09/24 04/09/24 04/09/24 Range/Units 17:24 17:30 17:56 WBC 15.04 H (4.8-10.8) K/ul RBC 4.77 (4.20-5.40) M/uL Hgb 13.9 (12.0-16.0) g/dl Hct 42.6 (37.0-47.0) % MCV 89.3 (80.0-100.0) fL MCH 29.1 (25.0-34.0) pg MCHC 32.6 (32.0-36.0) g/dL RDW Std Deviation 46.6 H (36.4-46.3) fL RDW Coeff of Gosia 14.4 (11.5-14.5) % Plt Count 273 (130-400) K/uL MPV 11.0 (9.4-12.4) fL Immature Gran % (Auto) 1.3 % Neut % (Auto) 78.2 % Lymph % (Auto) 13.8 % [place] % (Auto) 6.4 % Eos % (Auto) 0.0 % Baso % (Auto) 0.3 % Neut # (Auto) 11.76 H (1.40-6.50) K/uL Lymph # (Auto) 2.07 (1.20-3.40) K/uL [place] # (Auto) 0.97 H (0.11-0.59) K/uL Eos # (Auto) 0.00 (0.00-0.50) K/uL Baso # (Auto) 0.05 (0.00-0.20) K/uL Immature Gran # (Auto) 0.19 (0.01-0.20) K/uL PT 18.9 H (9.0-12.0) Seconds INR 1.8 H (0.9-1.1) APTT 25 (21-31) Seconds PTT Ratio 0.9 VBG pH 7.37 (7.36-7.41) VBG pCO2 74 H (38-50) mmHg VBG pO2 34 mmHg VBG HCO3 43 mmol/L VBG O2 Saturation < 60.0 % VBG Base Excess 13.7 mEq/L Sodium 141 (136-145) mmol/L Potassium 4.5 (3.5-5.1) mmol/L Chloride 94 L (98-107) mmol/L Carbon Dioxide 39 H (21-32) mmol/L Anion Gap 8 (3-11) BUN 64 H (6-23) mg/dl Creatinine 1.31 H (0.6-1.2) mg/dl Est Cr Clr Drug Dosing 27.5 ml/min eGFR 40.93 BUN/Creatinine Ratio 48.9 H (10-20) Glucose 225 H (70-99(Fasting)) mg/dl Calcium 10.4 H (8.6-10.3) mg/dl Magnesium 1.9 (1.7-2.4) mg/dl Total Bilirubin 0.9 (0.2-1.0) mg/dl AST 18 (13-39) U/L ALT 10 (7-52) U/L Alkaline Phosphatase 122 H (34-104) U/L Troponin I High Sens 93.0 H* (0-14) pg/ml B-Natriuretic Peptide 290 H (0-100) pg/ml Total Protein 6.3 (6.0-8.3) gm/dl Albumin 3.3 L (3.4-5.0) gm/dl Globulin 3.0 (2.5-4.0) gm/dl Albumin/Globulin Ratio 1.1 (0.9-2) Urine Color Dark Yellow Urine Appearance Clear (Clear) Urine pH 5.0 (4.5-7.5) Ur Specific [place] 1.022 (1.000-1.030) Urine Protein Trace H (Negative) Urine Glucose (UA) Negative (Negative) Urine Ketones Trace H (Negative) Urine Blood Negative (Negative) Urine Nitrite Negative (Negative) Urine Bilirubin 2+ H (Negative) Urine Urobilinogen Negative (Negative) Ur Leukocyte Esterase Trace H (Negative) Urine WBC (Auto) 0-5 (0-5) /hpf Urine RBC (Auto) 3-5 H (0-2) /hpf U Hyaline Cast (Auto) 6-10 H (0-2) /lpf U Epithel Cells (Auto) 0-2 (0-2) /hpf Urine Bacteria (Auto) None Seen (None Seen) SARS-CoV-2 (PCR) NEGATIVE (Negative) Influenza Type A (PCR) Negative (Neg) Influenza Type B (PCR) Negative (Neg) RSV (RT-PCR) Negative (Neg) Administered Medications Sodium Chloride (Nss) 500 mls @ 999 mls/hr IV .Q31M ONE Stop: 04/09/24 19:12 Last Admin: 04/09/24 18:48 Dose: 999 mls/hr Documented By: ROMMEL Ceftriaxone Sodium (Rocephin) 2,000 mg in 50 mls @ 100 mls/hr IV NOW STA Stop: 04/09/24 19:11 Last Admin: 04/09/24 18:48 Dose: 100 mls/hr Documented By: ROMMEL Imaging Data Attestation: I personally reviewed and interpreted this imaging study as follows: My Impression: 1 view chest x-ray was attained in the emergency department. My interpretation is no free air, final report below. Radiologist's Impression: Chest X-Ray 04/09/24 17:23 XR chest 1V portable HISTORY: 79 years-old Female Dyspnea acute shortness of breath COMPARISON: 01/20/2022 TECHNIQUE: AP view of the chest FINDINGS: Cardiac silhouette is enlarged. The medial lung apices are obscured by the patient's chin. The patient is also side bent. Emphysema with chronic interstitial coarsening. Calcified granuloma of the right lower lobe. Small pleural effusions with mild left basilar consolidation. IMPRESSION: 1. Cardiomegaly without overt pulmonary edema. 2. Emphysema. 3. Small pleural effusions with mild left basilar atelectasis versus pneumonitis. ACT 112: Negative or not required by law. The above report was generated using voice recognition software. It may contain grammatical, syntax or spelling errors. Electronically signed by: Quincy Samayoa M.D. 04/09/2024 6:08 PM Discharge Plan Visit Data Chief Complaint: Shortness of Breath/Dyspnea Stated Complaint: hypoxia ED Provider: Sunny Badillo Discharge Problem: Pneumonia, RICKY (acute kidney injury), Elevated troponin I level, Chronic respiratory acidosis Patient Disposition: Being Evaluated by Hospitalist Forms Stand Alone Forms: My [facility] Prescriptions Prescriptions: No Action (DME) Oxygen Home Liters Per Minute See Rx Instructions .Route Qty: 1 0RF Rx Instructions: Humidification for oxygen -LON99 Stiolto Respimat 2.5-2.5 mcg/actuation mist 2 puff inhalation DAILY Qty: 4 2RF aspirin 81 mg Tablet,Delayed Release (Dr/Ec) 81 mg PO QAM Qty: 30 0RF (DME) Oxygen Home Liters Per Minute See Rx Instructions .Route Qty: 1 0RF Rx Instructions: As directed albuterol sulfate 90 mcg/actuation HFA aerosol inhaler 2 inh inhalation Q6H PRN (Reason: shortness of breath or wheezing) Qty: 6.7 1RF (DME) Ultra-Light Rollator Misc See Rx Instructions .Route Qty: 1 0RF Rx Instructions: As directed metformin 500 mg tablet 500 mg PO DAILY lisinopril 5 mg tablet 5 mg PO DAILY hydrochlorothiazide 25 mg tablet 25 mg PO DAILY Referrals Referrals: Devan Neil PA-C [Primary Care Provider] - Discharge Problem: Pneumonia Qualifiers: Pneumonia type: due to unspecified organism Laterality: unspecified laterality Lung location: unspecified part of lung Qualified Code(s): J18.9 - Pneumonia, unspecified organism
--- NOTE | 2024-04-09 18:09 | XRay Report ---
XR chest 1V portable HISTORY: 79 years-old Female Dyspnea acute shortness of breath COMPARISON: 01/20/2022 TECHNIQUE: AP view of the chest FINDINGS: Cardiac silhouette is enlarged. The medial lung apices are obscured by the patient's chin. The patien t is also side bent. Emphysema with chronic interstitial coarsening. Calcified granuloma of the right lower lobe. Small pleural effusions with mild left basilar consolidation. IMPRESSION: 1. Cardiomegaly without overt pulmonary edema. 2. Emphysema. 3. Small pleural effusions with mild left basilar atelectasis versus pneumonitis. ACT 112: Negative or not required by law. The above report was generated using voice recognition software. It may contain grammatical, syntax o r spelling errors. Electronically signed by: Quincy Samayoa M.D. 04/09/2024 6:08 PM
[2024-04-09 18:10] LABS: Base Excess VBG 13.7 mEq/L; HCO3 VBG 43 mmol/L; Oxygen Saturation VBG < 60.0 %; PCO2 VBG 74 mmHg (38-50); PO2 VBG 34 mmHg; pH VBG 7.37 (7.36-7.41)
[2024-04-09 18:13] LABS: Basophils # (auto) 0.05 K/uL (0.00-0.20); Basophils % (auto) 0.3 %; Hematocrit (blood only) 42.6 % (37.0-47.0); Hemoglobin 13.9 g/dl (12.0-16.0); Immature Granulocytes # (auto) 0.19 K/uL (0.01-0.20); Immature Granulocytes % (auto) 1.3 %; Lymphocytes # (auto) 2.07 K/uL (1.20-3.40); Lymphocytes % (auto) 13.8 %; Mean Corpuscular Hemoglobin 29.1 pg (25.0-34.0); Mean Corpuscular Hgb Conc 32.6 g/dL (32.0-36.0); Mean Corpuscular Volume 89.3 fL (80.0-100.0); Monocytes # (auto) 0.97 K/uL (0.11-0.59); Monocytes % (auto) 6.4 %; Neutrophils # (auto) 11.76 K/uL (1.40-6.50); Neutrophils % (auto) 78.2 %; Platelet Count 273 K/uL (130-400); RDW Coefficient of Variation 14.4 % (11.5-14.5); RDW Standard Deviation 46.6 fL (36.4-46.3); Red Blood Count 4.77 M/uL (4.20-5.40); White Blood Count 15.04 K/ul (4.8-10.8)
[2024-04-09 18:20] LABS: Appearance Urine Clear (Clear); Bacteria Urine Automated None Seen (None Seen); Bilirubin Urine 2+ (Negative); Blood Urine Negative (Negative); Color Urine Dark Yellow; Epithelial Cell Urine Auto 0-2 /hpf (0-2); Glucose Urine UA Negative (Negative); Ketones Urine Trace (Negative); Leukocyte Esterase Urine Trace (Negative); Nitrite Urine Negative (Negative); Protein Urine Trace (Negative); Specific Gravity Urine 1.022 (1.000-1.030); Urobilinogen Urine Negative (Negative); WBC Urine Automated 0-5 /hpf (0-5)
[2024-04-09 18:31] LABS: Albumin Globulin Ratio 1.1 (0.9-2); Albumin Level 3.3 gm/dl (3.4-5.0); BUN Creatinine Ratio 48.9 (10-20); Bilirubin,Total 0.9 mg/dl (0.2-1.0); Calcium 10.4 mg/dl (8.6-10.3); Creatinine Clr Calc Pharmacy 27.5 ml/min; Magnesium 1.9 mg/dl (1.7-2.4); Potassium 4.5 mmol/L (3.5-5.1); Total Protein 6.3 gm/dl (6.0-8.3)
[2024-04-09 18:37] LABS: Influenza A virus by PCR Negative (Neg); Influenza B virus by PCR Negative (Neg); RSV by PCR Negative (Neg); SARS CoV2 RNA(COVID-19) Ceph NEGATIVE (Negative)
[2024-04-09 18:39] LABS: INR 1.8 (0.9-1.1); Partial Thromboplastin Ratio 0.9; Partial Thromboplastin Time 25 Seconds (21-31); Prothrombin Time 18.9 Seconds (9.0-12.0)
[2024-04-09] MEDS: SODIUM CHLORIDE 0.9% 500 ML IV ONE (18:48)
[2024-04-09] MEDS: cefTRIAXone SODIUM 2,000 MG/50 ML BAG IV STA (18:48)
[2024-04-09] MEDS: OPTIRAY 320 125ml IV ONE (19:42)
--- NOTE | 2024-04-09 20:17 | History & Physical Report ---
Date of Service April 09, 2024 Assessment & Plan (1) Acute pulmonary embolism: Plan: IV heparin standard without bolus TTE to assess for right heart strain 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: Plan: Reportedly started having pain in the center of her back in the Summer Consult palliative care to discuss goals of care as historically has avoided interventions Deferred pulmonology consult pending palliative care discussion Consult radiation oncology to discuss possible palliative pain treatment Acetaminophen 1g IV PRN for pain, avoiding opiates overnight while patient lethargic and altered (3) Sepsis: Plan: Possible diagnosis although no definitive source on admission No initial blood cultures or lactate prior to antibiotics given, ordered on admission Possible source pneumonia with concern for opacification ?aspiration although this may all just be cancer, procalcitonin pending Ceftriaxone given in the ER, will switch to Unasyn + azithromycin (4) Pneumonia: Plan: Similar consolidation on prior CTs although noted to be pneumonia at that time in addition Unasyn + doxycycline Concern for endobronchial obstruction therefore concern for aspiration, SLT consulted Incentive spirometer, flutter valve (5) Acute encephalopathy: Plan: CT head - no acute pathology Suspect secondary to uremia +/- hypoxia (not wearing her usual 2LPM O2) +/- infection, hypercapnia appears chronic and unlikely contributing Consider brain MRI w/wo IV contrast to rule out metastatic disease depending on goals of care discussion with palliative (6) Chronic respiratory failure with hypoxia and hypercapnia: Plan: Baseline 2LPM O2 however she was not wearing this at home, appears to be at her baseline with normal pH at this time suggesting chronic hypercapnia Aim O2 sats 88-82% (7) RICKY (acute kidney injury): Plan: Suspected pre-renal. NSS 500ml bolus. Additional LR 1L bolus now then @125ml/hr overnight Repeat BMP in AM. 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, uncontrolled: Plan: HbA1C 7.6 in 2021, repeat with AM labs Hold metformin due to RICKY Novolog: --Goal BSG Range: Low 110 mg/dL, High 140 mg/dL --Correction Factor: 45 mg/dL/unit No carb coverage --BSGs ACHS if eating, q6h if npo Add basal dosing if requiring frequent doses of Novolog (10) Hypertension: Plan: Hold antihypertensives given hypotension on admission (11) Abnormal CT scan of lung: Plan VTE prophylaxis - IV heparin Diet - NPO pending speech eval Disposition - admit to PCU Admission and Anticipated Discharge Date Admission Date: April 09, 2024 History of Present Illness Chief Complaint: Altered mental state Primary Care Provider: Devan Neil PA-C Annabelle Peter is an 79 year old female who presents to the ER with progressive worsening altered mental state, generalized weakness and reduced oral intake over the last 2 weeks. Today she was found with her oxygen off and much more confused than her baseline therefore daughter called EMS. Her daughter also notes patient having severe thoracic back pain since the summer after moving furniture, planning on starting PT at home. The patient denies any fever, chills, chest pain, shortness of breath, headache, abdominal pain, nausea, vomiting, diarrhea or urinary symptoms. She has a notable prior history of breast cancer. In 2021 she was under pulmonology with concerns for lung cancer at that time with advice to get PET scan and CT guided biopsy per note although her daughter reports they were told it was getting smaller and did not need a biopsy. This does not appear to have been followed up with ongoing imaging. Allergies Allergy/AdvReac Type Severity Reaction Status Date / Time codeine AdvReac Intermediate N/V Verified 11/08/22 09:58 Home Medications Medication Instructions Recorded Confirmed Type Oxygen Home #1 ea 01/23/22 11/08/22 Rx albuterol sulfate 90 mcg/actuation 2 inh inhalation Q6H PRN shortness 01/23/22 04/09/24 Rx aerosol inhaler of breath or wheezing #6.7 grams aspirin 81 mg tablet,delayed 81 mg PO QAM #30 tabs 01/23/22 04/09/24 Rx release walker (Ultra-Light Rollator misc) #1 ea 01/23/22 11/08/22 Rx Oxygen Home #1 ea 03/14/22 11/08/22 Rx lisinopril 5 mg tablet 5 mg PO DAILY 04/24/22 04/09/24 History metformin 500 mg tablet 500 mg PO DAILY 04/24/22 04/09/24 History tiotropium 2.5 mcg-olodaterol 2.5 2 puff inhalation DAILY #4 grams 10/20/22 04/09/24 Rx mcg/actuation mist for inhalation (Stiolto Respimat) cefuroxime axetil 250 mg tablet 0 mg PO USEASDIRECTD 04/09/24 04/09/24 History potassium chloride 10 mEq 0 meq PO DAILY 04/09/24 04/09/24 History tablet,extended release(part/cryst) Past Med/Surg History Problem List (Updated 04/10/24 @ 01:47 by Philipp Sheikh MD) Elevated INR Pneumonia Osteolytic lesion due to metastasis Acute pulmonary embolism Acute encephalopathy Sepsis Chronic respiratory failure with hypoxia and hypercapnia Elevated troponin I level (Acute) RICKY (acute kidney injury) (Acute) Lung mass COPD (chronic obstructive pulmonary disease) Abnormal CT scan of lung Breast cancer Hypertension Tobacco abuse Diabetes mellitus type 2 with complications, uncontrolled Pneumonia (Acute) Medical History HTN (hypertension) COPD (chronic obstructive pulmonary disease) Diabetes Surgical History Hx of partial mastectomy History of bilateral knee replacement Hx of hernia repair Social History Smoking Status: Former smoker Do You Dip or Chew Tobacco: No; Hx Alcohol Use: No Hx Substance Use: No Preferred Language: [place] Communication Ability: Effective Research Scientist Required: No Beliefs That Will Affect Care: None Current Living Situation: Alone Feels Safe at Home: Yes Assistive Devices: Cane, Glasses and Oxygen - Continuous Review of Systems Review of Systems: All systems reviewed & are unremarkable except as noted in HPI & below Physical Exam Constitutional: well developed; + not well nourished and no acute distress Eyes: PERRL, conjunctivae normal, anicteric sclerae Respiratory: + respiratory distress, + labored breath ing and + uses accessory muscles Auscultation: no diminished lung sounds, no crackles and no wheezes Cardiovascular: Rate/Rhythm: regular rhythm and + tachycardic Heart Sounds: no murmur Extremities: normal capillary refill; no calf tenderness and no pedal edema Gastrointestinal (Abdomen): normal bowel sounds, soft, nontender, no hepatosplenomegaly Skin: no rashes, warm and dry Neurologic: moves all extremities (difficulty following commands but moving all 4 extremities), awake and + confused; no focal motor deficits (no unilateral deficit) Psychiatric: Orientation: alert and oriented to person; + not oriented to place and + not oriented to time Results & Data Results & Data Vital Signs (Past 12 Hours) Vital Signs Temp Pulse Pulse Resp BP BP Pulse Ox 04/09/24 18:40 108 H 26 H 86/51 L 96 04/09/24 17:23 04/09/24 17:15 103 H 04/09/24 16:48 36.5 C 103 H 21 100/65 97 04/09/24 16:40 O2 Del Method O2 Flow Rate 04/09/24 18:40 Nasal Cannula 2 04/09/24 17:23 Room Air 04/09/24 17:15 04/09/24 16:48 Nasal Cannula 2 04/09/24 16:40 Nasal Cannula 2 Laboratory Results Abnormal lab results 04/09/24 04/09/24 Range/Units 17:24 17:56 WBC 15.04 H (4.8-10.8) K/ul RDW Std Deviation 46.6 H (36.4-46.3) fL Neut # (Auto) 11.76 H (1.40-6.50) K/uL Hawkins # (Auto) 0.97 H (0.11-0.59) K/uL ESR 43 H (0-30) mm/hr PT 18.9 H (9.0-12.0) Seconds INR 1.8 H (0.9-1.1) VBG pCO2 74 H (38-50) mmHg Chloride 94 L (98-107) mmol/L Carbon Dioxide 39 H (21-32) mmol/L BUN 64 H (6-23) mg/dl Creatinine 1.31 H (0.6-1.2) mg/dl BUN/Creatinine Ratio 48.9 H (10-20) Glucose 225 H (70-99(Fasting)) mg/dl Calcium 10.4 H (8.6-10.3) mg/dl Alkaline Phosphatase 122 H (34-104) U/L Troponin I High Sens 93.0 H* (0-14) pg/ml B-Natriuretic Peptide 290 H (0-100) pg/ml Albumin 3.3 L (3.4-5.0) gm/dl Urine Protein Trace H (Negative) Urine Ketones Trace H (Negative) Urine Bilirubin 2+ H (Negative) Ur Leukocyte Esterase Trace H (Negative) Urine RBC (Auto) 3-5 H (0-2) /hpf U Hyaline Cast (Auto) 6-10 H (0-2) /lpf Diagnostic Findings XR chest 1V portable HISTORY: 79 years-old Female Dyspnea acute shortness of breath COMPARISON: 01/20/2022 TECHNIQUE: AP view of the chest FINDINGS: Cardiac silhouette is enlarged. The medial lung apices are obscured by the patient's chin. The patient is also side bent. Emphysema with chronic interstitial coarsening. Calcified granuloma of the right lower lobe. Small pleural effusions with mild left basilar consolidation. IMPRESSION: 1. Cardiomegaly without overt pulmonary edema. 2. Emphysema. 3. Small pleural effusions with mild left basilar atelectasis versus pneumonitis. Medications Administered ER medications given: Normal saline 500 mL bolus Ceftriaxone 2000 mg IV ECG Rate (beats per minute): 100 Rhythm: sinus tachycardia Findings: + other (rightward axis) Comparison ECG Date: no prior available Code Status & VTE Plan Code Status DNR/DNI as discussed with her daughter per patient prior wishes VTE Prophylaxis Plan VTE Prophylaxis will be ordered: Yes PG Care Time/CCT Total # of Minutes Spent Total Time Spent with Patient: Total time spent is greater than 50% in coordination of care (as documented) at patient's floor/unit and/or counseling patient: Coding Level of Care Code 30389 INT INP/OBS CARE 375MIN Diagnoses Other acute pulmonary embolism, unspecified whether acute cor pulmonale present I26.99 Pulmonary embolism type: other Acute cor pulmonale presence: unspecified Osteolytic lesion due to metastasis C79.51 Sepsis with acute renal failure without septic shock, due to unspecified organism, unspecified acute renal failure type A41.9; R65.20; N17.9 Sepsis type: sepsis due to unspecified organism Sepsis acute organ dysfunction status: with acute organ dysfunction Severe sepsis acute organ dysfunction type: acute renal failure Acute renal failure type: unspecified Severe sepsis shock status: without septic shock Aspiration pneumonia of right lung, unspecified aspiration pneumonia type, unspecified part of lung J69.0 Pneumonia type: aspiration pneumonia Aspiration pneumonia type: unspecified Laterality: right Lung location: unspecified part of lung Acute encephalopathy G93.40 Chronic respiratory failure with hypoxia and hypercapnia J96.11; J96.12 RICKY (acute kidney injury) N17.9 Elevated INR R79.1 Diabetes mellitus type 2 with complications, uncontrolled Primary hypertension I10 Hypertension type: primary hypertension Abnormal CT scan of lung R91.8 (1) Acute pulmonary embolism Pulmonary embolism type: other Acute cor pulmonale presence: unspecified Qualified Code(s): I26.99 - Other pulmonary embolism without acute cor pulmonale (3) Sepsis Sepsis type: sepsis due to unspecified organism Sepsis acute organ dysfunction status: with acute organ dysfunction Severe sepsis acute organ dysfunction type: acute renal failure Acute renal failure type: unspecified Severe sepsis shock status: without septic shock Qualified Code(s): A41.9 - Sepsis, unspecified organism; R65.20 - Severe sepsis without septic shock; N17.9 - Acute kidney failure, unspecified (4) Pneumonia Pneumonia type: aspiration pneumonia Aspiration pneumonia type: unspecified Laterality: right Lung location: unspecified part of lung Qualified Code(s): J69.0 - Pneumonitis due to inhalation of food and vomit (10) Hypertension Hypertension type: primary hypertension Qualified Code(s): I10 - Essential (primary) hypertension
--- NOTE | 2024-04-09 21:06 | CT Scan Report ---
Exam(s): CT HEAD Without Contrast EXAM: CT Head Without Intravenous Contrast CLINICAL HISTORY: Reason for exam: Altered mental status. TECHNIQUE: Axial computed tomography images of the head/brain without intravenous contrast. CTDI is 110 mGy and DLP is 1888.93 mGy-cm. Automated exposure control was utilized for the study. A dose lowering technique was utilized adhering to the principles of ALARA. COMPARISON: 01/14/22 FINDINGS: Brain: Age-related parenchymal volume loss. Periventricular and deep cerebral white matter hypoattenuation suggesting chronic small vessel ischemic change. Gaming-white matter differentiation maintained. No hemorrhage, mass effect, parenchymal edema, or midline shift. Ventricles: Unremarkable. No hydrocephalus. Bones/joints: Unremarkable. No acute fracture. Soft tissues: Unremarkable. Vasculature: Intracranial atherosclerosis. Sinuses: Unremarkable as visualized. Mastoid air cells: Unremarkable as visualized. No mastoid effusion. IMPRESSION: No acute intracranial process. Electronically signed by: Janell Saba M.D. 04/09/24 21:05 PM
--- NOTE | 2024-04-09 21:22 | CT Scan Report ---
Exam(s): CTA CHEST IV Amt: 119ml opti 320 EXAM: CT Angiography Chest With Intravenous Contrast CLINICAL HISTORY: Reason for exam: PE. TECHNIQUE: Axial computed tomographic angiography images of the chest with intravenous contrast. CTDI is 111 mGy and DLP is 1888.93 mGy-cm. Automated exposure control was utilized for the study. A dose lowering technique was utilized adhering to the principles of ALARA. MIP reconstructed images were created and reviewed. COMPARISON: CT chest 04/07/22 FINDINGS: Pulmonary arteries: Adequate pulmonary artery opacification. Acute segmental and subsegmental pulmonary emboli in both upper lobes. No saddle embolus. Aorta: Thoracic aortic atherosclerosis without aneurysm or dissection. Lungs: Calcified granuloma right lower lobe. Subsegmental atelectasis in both lower lobes. Spiculated juxtapleural opacity in the superior segment of the right lower lobe appears similar to prior exam. Right lower lobe endobronchial opacification. Right middle lobe nodule measuring 7.5 mm, new from prior (series 9, image 51), metastasis not excluded. Emphysema. Pleural space: Unremarkable. No significant effusion. No pneumothorax. Heart: Mild cardiomegaly. Coronary artery atherosclerosis. Trace pericardial fluid. Elevated RV/LV ratio measuring 2.0. Fluid filled pericardial recess in the precarinal region. Bones/joints: Osteolytic metastatic disease. Lytic metastases involving the T3 vertebral body, T6 vertebra, and left fourth rib. Pathologic compression fracture of T6 with 40% height loss. Tumor extension into the spinal canal and left T6-T7 foramen producing mild canal stenosis and severe right foraminal narrowing. No dislocation. Soft tissues: Unremarkable. Lymph nodes: Calcified mediastinal and right hilar lymph nodes in keeping with chronic granulomatous disease. Spleen: Calcified splenic granulomata. Adrenals: Thickened adrenal glands, hyperplasia versus metastases. Kidneys and ureters: Simple left kidney cyst; no follow-up indicated. IMPRESSION: 1. Acute segmental and subsegmental pulmonary emboli in both upper lobes. Elevated RV/LV ratio measuring 2.0, RV strain not excluded. 2. Spiculated juxtapleural opacity in the superior segment of the right lower lobe appears similar to prior exam. Appearance could represent slow growing malignancy versus chronic nonspecific consolidation. 3. Right lower lobe endobronchial opacification. Considerations include endobronchial mass, mucous plugging, or aspiration. Consider follow-up bronchoscopy. 4. Right middle lobe nodule measuring 7.5 mm, new from prior (series 9, image 51), metastasis not excluded. Fleischner Society Guidelines for low-risk patients recommend follow-up chest CT at 6-12 months. If unchanged consider an additional follow-up CT at 18-24 months. For high- risk patients (smoking history or other known risk factors) initial follow-up chest CT at 6-12 months and if unchanged, 18-24 months. 5. Osteolytic metastatic disease. Lytic metastases involving the T3 vertebral body, T6 vertebra, and left fourth rib. 6. Pathologic compression fracture of T6 with 40% height loss. Tumor extension into the spinal canal and left T6-T7 foramen producing mild canal stenosis and severe right foraminal narrowing. 7. Thickened adrenal glands, hyperplasia versus metastases. Communications: Call Doctor Pulmonary Embolism Electronically signed by: Janell Saba M.D. 04/09/24 21:21 PM
--- NOTE | 2024-04-09 21:30 | Emergency Department Note ---
ED Visit Note Stat rad called with CT scan read small subsegmental bilateral pulmonary embolisms with other findings present. ER physician had [facility] the [facility]. He was gone for the day his shift was over. I took the call with stat read and discussed with the [facility] who will take care of the findings of the study. .
[2024-04-09] MEDS ORDERED: Heparin IV Adult Wt-Based Standard *NO* INITIAL Bolus Protocol IV STA (22:08)
[2024-04-09] MEDS ORDERED: ONDANSETRON INJ 2 MG/ML 2 ML VIAL IV PRN (22:51)
[2024-04-09] MEDS: PHYTONADIONE 10 MG in DEXTROSE 5% 50 ML IV ONE (23:01)
[2024-04-09] MEDS: LACTATED RINGER'S 1,000 ML IV ONE (23:01)
[2024-04-09 23:10] LABS: C Reactive Protein 8.87 mg/dl (0-0.5)
[2024-04-09] MEDS ORDERED: CARBOHYDRATES FOR HYPOGLYCEMIA PO PRN (23:11)
[2024-04-09] MEDS ORDERED: DEXTROSE 50% 50 ML SYRINGE IV PRN (23:11)
[2024-04-09] MEDS ORDERED: GLUCAGON FOR INJ 1 MG VIAL SQ PRN (23:11)
[2024-04-09] MEDS ORDERED: GLUCOSE 40% GEL 15 GM TUBE PO PRN (23:11)
[2024-04-09] MEDS ORDERED: GLUCOSE 10 TAB/TUBE PO PRN (23:11)
[2024-04-09] MEDS: AMPICILLIN/SULBACTAM SOD 3,000 MG/100 ML BAG IV SCH (23:48)
[2024-04-10] MEDS: INSULIN ASPART PER UNIT CHARGE SC SCH (00:08)
[2024-04-10] MEDS: AZITHROMYCIN 500 MG in DEXTROSE 5% 250 ML IV SCH (00:40)
[2024-04-10 00:46] LABS: Base Excess ABG 10.1 mEq/L (-9-1.8); HCO3 ABG 39 mmol/L (19-24); Oxygen Saturation ABG 97.8 % (90-95); PCO2 ABG 70 mmHg (35-46); PO2 ABG 95 mmHg (80-95); pH ABG 7.35 (7.35-7.45)
[2024-04-10 00:47] LABS: Allen Test Pos (Pos)
[2024-04-10] MEDS: HEPARIN SODIUM/DEXTROSE 25,000 UNITS/500 ML BAG IV SCH (00:48)
[2024-04-10] MEDS: LACTATED RINGER'S 1,000 ML IV SCH (01:08)
[2024-04-10] MEDS: ACETAMINOPHEN 1,000 MG/100 ML VIAL IV PRN (02:20)
--- NOTE | 2024-04-10 07:19 | Electrocardiogram Report ---
Test Reason : Blood Pressure : */* mmHG Vent. Rate : 100 BPM Atrial Rate : 100 BPM P-R Int : 142 ms QRS Dur : 82 ms QT Int : 342 ms P-R-T Axes : 77 90 27 degrees QTcB Int : 441 ms Normal sinus rhythm Possible Left atrial enlargement Rightward axis Borderline ECG Confirmed by Feliciano Gardner ([id number]) on 04/10/2024 7:19:14 AM Referred By: REFERRED SELF Confirmed By: Feliciano Gardner
[2024-04-10 08:11] LABS: Basophils # (auto) 0.05 K/uL (0.00-0.20); Basophils % (auto) 0.4 %; Eosinophils # (auto) 0.08 K/uL (0.00-0.50); Eosinophils % (auto) 0.7 %; Hematocrit (blood only) 36.6 % (37.0-47.0); Hemoglobin 11.7 g/dl (12.0-16.0); Immature Granulocytes # (auto) 0.15 K/uL (0.01-0.20); Immature Granulocytes % (auto) 1.3 %; Lymphocytes # (auto) 1.99 K/uL (1.20-3.40); Lymphocytes % (auto) 16.6 %; Mean Corpuscular Hemoglobin 28.6 pg (25.0-34.0); Mean Corpuscular Volume 89.5 fL (80.0-100.0); Mean Platelet Volume 11.1 fL (9.4-12.4); Monocytes # (auto) 0.94 K/uL (0.11-0.59); Monocytes % (auto) 7.8 %; Neutrophils # (auto) 8.78 K/uL (1.40-6.50); Neutrophils % (auto) 73.2 %; Platelet Count 252 K/uL (130-400); RDW Coefficient of Variation 14.4 % (11.5-14.5); RDW Standard Deviation 46.8 fL (36.4-46.3); Red Blood Count 4.09 M/uL (4.20-5.40); White Blood Count 11.99 K/ul (4.8-10.8)
[2024-04-10 08:27] LABS: Albumin Globulin Ratio 1.1 (0.9-2); Albumin Level 2.7 gm/dl (3.4-5.0); Bilirubin,Total 0.4 mg/dl (0.2-1.0); Calcium 9.4 mg/dl (8.6-10.3); Creatinine Clr Calc Pharmacy 38.9 ml/min; Globulin 2.4 gm/dl (2.5-4.0); Magnesium 1.6 mg/dl (1.7-2.4); Phosphorus 3.1 mg/dl (2.5-4.9); Potassium 3.8 mmol/L (3.5-5.1); Total Protein 5.1 gm/dl (6.0-8.3)
[2024-04-10 08:35] LABS: ANTI-Xa, UFH(UnfractionatedHep 0.33 IU/ml (0.3-0.7)
[2024-04-10 08:38] LABS: INR 1.4 (0.9-1.1); Prothrombin Time 14.6 Seconds (9.0-12.0)
--- NOTE | 2024-04-10 09:01 | Radiation OncologyConsultation ---
Date of Consultation April 10, 2024 Assessment & Plan (1) Breast cancer: (2) Lung mass: (3) Metastatic cancer: Plan ATTENDING ADDENDUM Assessment: Ms. Peter is an 79-year-old female with a previous history of breast cancer who is now admitted to the hospital for further workup and evaluation and pain control. The patient was found to have metastatic disease to multiple bones and pulmonary masses. At this point, the primary for metastatic disease is unknown. The patient was also found to have metastatic disease involving the thoracic spine which is causing significant pain and is also extending into the spinal canal. We have been asked to evaluate the patient regarding the role of radiation therapy. Treatment Options: 1. Palliative radiation therapy. 2. Best supportive care. Recommendation: The patient defers her healthcare management to her daughter, Donna who works at the hospital. I have spoken to her in great detail and discussed options including best supportive care versus considering palliative radiation therapy. The patient's daughter has recommended consideration of palliative radiation therapy. Additionally, as a part of our conversation we did discuss potential further diagnostic studies as well as pursuing further treatment in the future. At this point, the patient's daughter will speak with with the patient to make final decisions. If the patient and/or her daughter are interested in pursuing further consideration of treatment for her cancer, a CT of the abdomen pelvis and bone scan and MRI of the brain could be ordered. Plan: 1. CT simulation for treatment planning for radiation therapy. Plan for 5 fractions of palliative radiation therapy. Consent will be obtained from the daughter who is healthcare power of bankruptcy attorney. 2. Pain management as per primary medical team. 3. Palliative care medicine input appreciated. 4. Further diagnostic imaging studies could be completed if patient and daughter are interested in pursuing further workup regarding the cancer. Please call us with any questions. 5. Patient and family encouraged to call us with any further questions or concerns. Rationale/Explanation of Treatment: I explained the indications, alternatives, benefits, risks and side effects of external beam radiation therapy. I then discussed radiation therapy side effects for treatment which include, but are not limited to, skin erythema, dry/moist desquamation of the skin, hyperpigmentation, telangiectasias, damage to the heart and development of cardiovascular disease, damage to the lungs including radiation pneumonitis, pulmonary fibrosis, decrease in pulmonary function, cough, fistula formation, tracheal stenosis, esophageal stenosis, esophageal perforation, dysphagia, nausea, vomiting, ulcers in stomach/bowel, gastritis, gastric perforation, bowel perforation, bowel obstruction, weight loss, dehydration, decreased appetite, liver damage including hepatitis and liver failure, damage to the kidneys including decreased renal function and renal failure, spinal cord damage including myelopathy, fatigue and secondary malignancy. History of Present Illness Reason for Consultation: Bone metastasis. Requesting Physician: Dada Magallon Attending Physician: Dada Magallon History of Present Illness 2019. Patient has a prior history of breast cancer. She had a partial mastectomy. Performed at [facility]. She declined radiation and chemotherapy.. 01/20/2022. Patient was hospitalized for pneumonia. Possible lung abscess. 01/20/2022. Chest x-ray. 1. Cardiomegaly and emphysema. 2. Right perihilar and basilar consolidation is likely unchanged from previous and was better characterized on the 01/13/2022 CT scan. Correlate clinically for evidence of pneumonia/aspiration pneumonitis. Radiographic follow-up to resolution is recommended, as is a repeat chest CT in 1-2 months time to exclude the possibility of underlying neoplasm. 3. Minimal consolidation is seen at the left lung base. 4. No pleural effusion is identified. 01/20/2022. Chest CT. 1. Interval decrease in size in the 4.8 x 3.4 cm irregular cavitary lesion within the right lower lobe as well as the additional 2.4 x 1.7 cm irregular nodule within the base the right lower lobe. These could related to an atypical infectious process such as a fungal infection or aspiration pneumonia given the decrease in size. However, a primary bronchogenic malignancy remains the diagnosis of exclusion for the larger cavitary lesion. Pulmonary consultation advised 2. Significant improvement/resolution in the airspace opacities within the lung bases suggestive of a resolving pneumonia. 3. [id number] emphysema again noted. 4. A 3.1 cm round cystic focus within the right breast upper-outer quadrant/axilla. This remains unchanged. This could represent a postoperative seroma. A necrotic lymph node is considered less likely but not entirely excluded. This bears watching on future examinations. 01/21/2022. Pulmonary consultation (Dr. Ross). Underlying malignancy cannot be excluded. Patient did not want aggressive intervention including bronchoscopy. She agreed to a follow-up chest CT in 8 to 10 weeks. 01/27/2022. Pulmonary follow-up. Patient prescribed Augmentin. Chest CT ordered. 04/07/2022. Chest CT. 1. Persistent cavitary lesion within the superior segment of the right lower lobe with mild increase in extent of the largest component since prior CT of January 21, 2022. Given persistence, an underlying neoplasm is the diagnosis of exclusion. However, a resolving pneumonia could appear similar. Nodular interlobular septal thickening and thickening along the right major fissure. Lymphangitic spread is within the differential. 2. No thoracic lymphadenopathy. 3. Emphysema. 4. Moderate cardiomegaly. 04/07/2022. Pulmonary follow-up. Review of chest CT. Recommendation for CT- guided biopsy. PET/CT ordered. 04/24/2022. Limited chest CT. The right lower lobe nodule has further decreased in size. This is favored to represent improving infectious process in this patient with history of pneumonia. Biopsy was therefore not performed. Recommend 3 month follow-up CT to assess resolution of this finding. 04/26/2022. PET/CT. 1. Again seen is an approximately 5.5 x 3 cm right lower lobe opacity with internal cavitation. This is FDG avid, and could represent an evolving infectious process versus neoplasm. Tissue sampling will likely be required for definitive characterization. 2. Consolidation around this lesion has improved as compared to 04/07/2022. 3. There is an additional 1.5 cm FDG avid nodular opacity at the medial left lung base. This could also be on an infectious/inflammatory versus neoplastic basis. At a minimum, continued attention at follow-up is recommended. 4. There are no pathologically enlarged or FDG avid mediastinal or hilar lymph nodes. 5. No FDG avid lesions are seen outside the thorax. 6. Cardiomegaly and emphysema. 7. Cholelithiasis. 8. Colonic diverticulosis without CT evidence of acute diverticulosis. 04/09/2024. Emergency room evaluation due to shortness of breath and mental status changes. Admission for acute pulmonary emboli, osteolytic lesion due to metastasis, sepsis, pneumonia, acute encephalopathy. Chronic respiratory failure with hypoxia and hypercapnia, and acute kidney injury. 04/09/2024. Chest x-ray. 1. Cardiomegaly without overt pulmonary edema. 2. Emphysema. 3. Small pleural effusions with mild left basilar atelectasis versus pneumonitis. 04/09/2024. Chest CTA. 1. Acute segmental and subsegmental pulmonary emboli in both upper lobes. Elevated RV/LV ratio measuring 2.0, RV strain not excluded. 2. Spiculated juxtapleural opacity in the superior segment of the right lower lobe appears similar to prior exam. Appearance could represent slow growing malignancy versus chronic nonspecific consolidation. 3. Right lower lobe endobronchial opacification. Considerations include endobronchial mass, mucous plugging, or aspiration. Consider follow-up bronchoscopy. 4. Right middle lobe nodule measuring 7.5 mm, new from prior (series 9, image 51), metastasis not excluded. Fleischner Society Guidelines for low-risk patients recommend follow-up chest CT at 6-12 months. If unchanged consider an additional follow-up CT at 18-24 months. For high- risk patients (smoking history or other known risk factors) initial follow-up chest CT at 6-12 months and if unchanged, 18-24 months. 5. Osteolytic metastatic disease. Lytic metastases involving the T3 vertebral body, T6 vertebra, and left fourth rib. 6. Pathologic compression fracture of T6 with 40% height loss. Tumor extension into the spinal canal and left T6-T7 foramen producing mild canal stenosis and severe right foraminal narrowing. 7. Thickened adrenal glands, hyperplasia versus metastases. 04/10/2024. Radiation oncology consultation. Patient found to have metastatic lesions of the thoracic spine. There is pathologic compression fracture at T6. This morning she is lethargic. She answers questions slowly. She currently denies pain. She states when she is moved and position is changed she will have pain in the mid back. I did speak with her daughter Donna. She confirmed that there was no prior radiation therapy in her history. Our office has been consulted to consider palliative radiation therapy. Allergies Allergy/AdvReac Type Severity Reaction Status Date / Time codeine AdvReac Intermediate N/V Verified 11/08/22 09:58 Home Medications Medication Instructions Recorded Confirmed Type Oxygen Home #1 ea 01/23/22 11/08/22 Rx albuterol sulfate 90 mcg/actuation 2 inh inhalation Q6H PRN shortness 01/23/22 04/09/24 Rx aerosol inhaler of breath or wheezing #6.7 grams aspirin 81 mg tablet,delayed 81 mg PO QAM #30 tabs 01/23/22 04/09/24 Rx release walker (Ultra-Light Rollator misc) #1 ea 01/23/22 11/08/22 Rx Oxygen Home #1 ea 03/14/22 11/08/22 Rx lisinopril 5 mg tablet 5 mg PO DAILY 04/24/22 04/09/24 History metformin 500 mg tablet 500 mg PO DAILY 04/24/22 04/09/24 History tiotropium 2.5 mcg-olodaterol 2.5 2 puff inhalation DAILY #4 grams 10/20/22 04/09/24 Rx mcg/actuation mist for inhalation (Stiolto Respimat) cefuroxime axetil 250 mg tablet 0 mg PO USEASDIRECTD 04/09/24 04/09/24 History potassium chloride 10 mEq 0 meq PO DAILY 04/09/24 04/09/24 History tablet,extended release(part/cryst) Patient History Medical History HTN (hypertension) COPD (chronic obstructive pulmonary disease) Diabetes Surgical History Hx of partial mastectomy History of bilateral knee replacement Hx of hernia repair Social History Smoking Status: Current every day smoker Do You Dip or Chew Tobacco: No; Hx Alcohol Use: No Hx Substance Use: No Preferred Language: Nigerien Communication Ability: Impaired Outdoor Illuminating Engineer Required: No Beliefs That Will Affect Care: Spiritual Current Living Situation: Alone Feels Safe at Home: Yes Assistive Devices: Oxygen - Continuous and Walker Physical Exam Physical Exam: Lethargic and slow to answer questions. Constitutional: WD/WN, vitals as above Eyes: PERRL, conjunctivae normal, anicteric sclerae ENMT: Ears: no hearing impairment Neck: trachea midline, no thyromegaly Respiratory: normal respiratory effort, lungs clear to auscultation Auscultation: + diminished lung sounds Cardiovascular: RRR, no murmur, no edema Gastrointestinal (Abdomen): normal bowel sounds, soft, nontender, no hepatosplenomegaly Skin: no rashes, warm and dry Psychiatric: A+Ox3, euthymic affect Time Spent Midlevel I spent [20] minutes in preparation for this follow up evaluation including reviewing all the clinical records, reviewing laboratory studies, pathology reports and imaging results. I spent [20] minutes with direct face to face interaction with the patient and/or family including performing a physical exam and answering all questions. I spent [15] minutes documenting this patient's visit. Attending I spent 20 minutes in preparation for this consultation including reviewing all the clinical records, reviewing laboratory studies, pathology reports and imaging results. I spent 20 minutes with direct face to face interaction with the patient and/or family including performing a physical exam and answering all questions. This included speaking with the patient's daughter. I spent 20 minutes documenting this patient's visit. PG Care Time/CCT Total # of Minutes Spent Total Time Spent with Patient: Total time spent is greater than 50% in coordination of care (as documented) at patient's floor/unit and/or counseling patient: [place] [address] IN/OBS CONSULT LVL 5,80M Patient Type New History Problem Focused Exam Problem Focused Medical Decision Making Low Complexity Diagnoses Breast cancer C50.919 Lung mass R91.8 Metastatic cancer C79.9
[2024-04-10 09:04] LABS: Estimated Average Glucose 160 mg/dl; Hemoglobin A1C 7.2 % (4.5-5.6)
[2024-04-10] MEDS: ASPIRIN 81 MG ECTAB PO SCH (09:55)
[2024-04-10] MEDS: UMECLIDINIUM/VILANTEROL 62.5/25MCG 7 PUFFS/INHALER INH SCH (09:55)
--- NOTE | 2024-04-10 10:10 | XRay Report ---
XR chest 1V portable HISTORY: 79 years-old Female hypoxia acute hypoxia COMPARISON: CTA chest April 09, 2024 TECHNIQUE: AP view of the chest FINDINGS: Cardiac silhouette is enlarged. Emphysema with chronic interstitial coarsening. Pulmonary vascular co ngestion. Asymmetric right hilar prominence redemonstrated. Mild patchy bibasilar opacities are again noted. Calcified granuloma right lower lobe. Pulmonary nodules are better seen on prior chest CT. Os teolytic skeletal metastatic disease again noted, also better seen on prior CT. IMPRESSION: 1. Cardiomegaly with pulmonary vascular congestion. 2. Emphysema and chronic interstitial coarsening redemonstrated. 3. Metastatic disease better seen on comparison CT exam. 4. Patchy bibasilar airspace opacities redemonstrated. ACT 112: Negative or not required by law. The above report was generated using voice recognition software. It may contain grammatical, syntax o r spelling errors. Electronically signed by: Quincy Samayoa M.D. 04/10/2024 10:09 AM
[2024-04-10] MEDS: AMPICILLIN/SULBACTAM SOD 3,000 MG/100 ML BAG IV SCH (10:23)
--- NOTE | 2024-04-10 10:34 | XCELERA ---
[id number] \\[id number]
[2024-04-10] MEDS: FUROSEMIDE 40 MG/4 ML VIAL IV ONE (14:11)
--- NOTE | 2024-04-10 14:36 | Hospitalist Progress Note ---
Date of Service April 10, 2024 Assessment & Plan (1) Acute pulmonary embolism: Plan: IV heparin standard without bolus TTE to assess for right heart strain: no significant right hear strain. Cosnulted pulmonary for hypoxia/hypercapnea. 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: Plan: Reportedly started having pain in the center of her back in the Summer Consult palliative care to discuss goals of care as historically has avoided interventions Deferred pulmonology consult pending palliative care discussion Consult radiation oncology to discuss possible palliative pain treatment Acetaminophen 1g IV PRN for pain, avoiding opiates overnight while patient lethargic and altered (3) Sepsis: Plan: Possible diagnosis although no definitive source on admission No initial blood cultures or lactate prior to antibiotics given, ordered on admission Possible source pneumonia with concern for opacification ?aspiration although this may all just be cancer, procalcitonin pending Ceftriaxone given in the ER, will switch to Unasyn + azithromycin contiue unasyn/azithromyucin. (4) Pneumonia: Plan: Similar consolidation on prior CTs although noted to be pneumonia at that time in addition Unasyn + doxycycline Concern for endobronchial obstruction therefore concern for aspiration, SLT consulted Incentive spirometer, flutter valve (5) Acute encephalopathy: Plan: CT head - no acute pathology Suspect secondary to uremia +/- hypoxia (not wearing her usual 2LPM O2) +/- infection, hypercapnia appears chronic and unlikely contributing Consider brain MRI w/wo IV contrast to rule out metastatic disease depending on goals of care discussion with palliative (6) Chronic respiratory failure with hypoxia and hypercapnia: Plan: Baseline 2LPM O2 however she was not wearing this at home, appears to be at her baseline with normal pH at this time suggesting chronic hypercapnia Aim O2 sats 88-82% concern for fluid retnetion in the lung. ordered lasix IV 40 mg x1 on 04/10 (7) RICKY (acute kidney injury): Plan: Suspected pre-renal. NSS 500ml bolus. Additional LR 1L bolus now then @125ml/hr overnight Repeat BMP in AM. 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, uncontrolled: Plan: HbA1C 7.6 in 2021, repeat with AM labs Hold metformin due to RICKY Novolog: --Goal BSG Range: Low 110 mg/dL, High 140 mg/dL --Correction Factor: 45 mg/dL/unit No carb coverage --BSGs ACHS if eating, q6h if npo Add basal dosing if requiring frequent doses of Novolog (10) Hypertension: Plan: Hold antihypertensives given hypotension on admission (11) Abnormal CT scan of lung: Plan VTE prophylaxis - IV heparin Diet - NPO pending speech eval Disposition - admit to PCU Admission and Anticipated Discharge Date Admission Date: April 09, 2024 Subjective 79 yo female is more short of breath today. Review of Systems Review of Systems: All systems reviewed & are unremarkable except as noted in HPI & below Physical Exam Constitutional: well developed; + not well nourished and no acute distress Eyes: PERRL, conjunctivae normal, anicteric sclerae Respiratory: + respiratory distress, + labored breath ing and + uses accessory muscles Auscultation: + crackles; no diminished lung sounds and no wheezes Cardiovascular: Rate/Rhythm: regular rhythm and + tachycardic Heart Sounds: no murmur Extremities: normal capillary refill; no calf tenderness and no pedal edema Gastrointestinal (Abdomen): normal bowel sounds, soft, nontender, no hepatosplenomegaly Skin: no rashes, warm and dry Neurologic: moves all extremities (difficulty following commands but moving all 4 extremities), awake and + confused; no focal motor deficits (no unilateral deficit) Psychiatric: Orientation: alert and oriented to person; + not oriented to place and + not oriented to time Results & Data Results & Data Vital Signs (Past 12 Hours) Vital Signs Temp Pulse Pulse Resp BP BP Pulse Ox 04/10/24 09:00 04/10/24 08:52 36.4 C L 102 H 19 109/73 86 L 04/10/24 07:30 95 H 04/10/24 04:10 98/58 L 04/10/24 03:51 36.9 C 97 H 17 90/55 L 90 O2 Del Method O2 Flow Rate 04/10/24 09:00 Nasal Cannula 4 04/10/24 08:52 Nasal Cannula 4 04/10/24 07:30 04/10/24 04:10 04/10/24 03:51 High Flow Nasal Cannula PG Care Time/CCT Total # of Minutes Spent Total Time Spent with Patient: Total time spent is greater than 50% in coordination of care (as documented) at patient's floor/unit and/or counseling patient: Coding Level of Care Code 56742 SUB INP/OBS CARE 50MIN Diagnoses Other acute pulmonary embolism, unspecified whether acute cor pulmonale present I26.99 Acute cor pulmonale presence: unspecified Pulmonary embolism type: other Osteolytic lesion due to metastasis C79.51 Sepsis with acute renal failure without septic shock, due to unspecified organism, unspecified acute renal failure type A41.9; R65.20; N17.9 Acute renal failure type: unspecified Sepsis acute organ dysfunction status: with acute organ dysfunction Sepsis type: sepsis due to unspecified organism Severe sepsis acute organ dysfunction type: acute renal failure Severe sepsis shock status: without septic shock Aspiration pneumonia of right lung, unspecified aspiration pneumonia type, unspecified part of lung J69.0 Aspiration pneumonia type: unspecified Laterality: right Lung location: unspecified part of lung Pneumonia type: aspiration pneumonia Acute encephalopathy G93.40 Chronic respiratory failure with hypoxia and hypercapnia J96.11; J96.12 RICKY (acute kidney injury) N17.9 Elevated INR R79.1 Diabetes mellitus type 2 with complications, uncontrolled Primary hypertension I10 Hypertension type: primary hypertension Abnormal CT scan of lung R91.8 (1) Acute pulmonary embolism Acute cor pulmonale presence: unspecified Pulmonary embolism type: other Qualified Code(s): I26.99 - Other pulmonary embolism without acute cor pulmonale (3) Sepsis Acute renal failure type: unspecified Sepsis acute organ dysfunction status: with acute organ dysfunction Sepsis type: sepsis due to unspecified organism Severe sepsis acute organ dysfunction type: acute renal failure Severe sepsis shock status: without septic shock Qualified Code(s): A41.9 - Sepsis, unspecified organism; R65.20 - Severe sepsis without septic shock; N17.9 - Acute kidney failure, unspecified (4) Pneumonia Aspiration pneumonia type: unspecified Laterality: right Lung location: unspecified part of lung Pneumonia type: aspiration pneumonia Qualified Code(s): J69.0 - Pneumonitis due to inhalation of food and vomit (10) Hypertension Hypertension type: primary hypertension Qualified Code(s): I10 - Essential (primary) hypertension
--- NOTE | 2024-04-10 15:27 | Pulmonary Consultation ---
Date of Consultation April 10, 2024 Assessment & Plan (1) Acute encephalopathy: (2) Acute pulmonary embolism: Pulmonary embolism type: other Acute cor pulmonale presence: u nspecified Qualified Code(s): I26.99 - Other pulmonary embolism without acute cor pulmonale (3) Acute on chronic respiratory failure with hypoxia and hypercapnia: (4) Tobacco abuse: (5) Lung mass: (6) COPD (chronic obstructive pulmonary disease): (7) Pulmonary hypertension: Plan CT chest 04-09-24 personally reviewed: Centrilobular and paraseptal emphysema appreciated bilaterally Mass pleural-based in the right lower lobe superior to the granuloma Mucous air in the right lower lobe Calcified granuloma in the right lower lobe Acute pulmonary emboli left upper lobe Significant mediastinal lymphadenopathy especially station 4R and 10R 2D echo 04/10/2024: EF 60-65%, mild concentric LVH, RVSP 40-50 mmHg, RV mild to moderately dilated, flattened septum consistent with RV pressure volume overload ABG 04/10/2024: 7.35/70/95 on 2 L --Acute on chronic hypoxic hypercapnic hypercapnic respiratory failure Hypoxia is combination of COPD as well as acute pulmonary emboli Hypercapnia is likely from underlying COPD BiPAP [id number] right now Procalcitonin 0.13 -- Acute pulmonary emboli with acute DVT bilateral lower extremity Likely secondary to possible malignancy in the pleural-based mass sPESI >1, modalities greater than 8% especially given the elevated BNP and troponin. BNP 290, elevated troponin Continue with heparin drip -- Pulmonary mass Likely lung cancer in some one with significant smoking history Patient had refused to have biopsy done in the past. 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 Blood pressure has improved I do not think the need for thrombolytics is needed Would recommend to continue with heparin drip DC Anoro, start the patient on nebulized formoterol as well as budesonide I think patient is going to benefit from BiPAP, /, 30% ordered for the patient. Case was discussed with RN at bedside Please note the above document was generated using voice recognition software. It may contain grammatical, syntax or spelling errors.Any formal questions or concerns about the content, text or information contained within the body of this dictation should be directly addressed to the provider for clarification. History of Present Illness Attending Physician: Dada Magallon History of Present Illness 79-year-old female present to the hospital with complaints of shortness of breath Past medical history: Breast cancer, COPD, right lower lobe lung mass Pulmonary consulted for abnormal chest CT Patient was last seen by Dr. Ross March 2022, notes reviewed History was obtained from daughter at bedside At the time of examination patient was resting comfortably. Patient daughter was also in the room. She was a bit emotional when I entered. As per the daughter she found her mom disoriented and not in good condition when she saw her at her home. Last time when the daughter saw her mom at baseline was more than 1 and half week ago. Initially when she came to the ER her blood pressure was on the lower side. She was saturating right now when I saw her 99-100% on 5 L nasal cannula, was gradually able to go down to 1 L and the patient is still saturating 99% No known fever or chills. Social history: Greater than [id number] smoking history, still actively smoking Allergies Allergy/AdvReac Type Severity Reaction Status Date / Time codeine AdvReac Intermediate N/V Verified 11/08/22 09:58 Home Medications Medication Instructions Recorded Confirmed Type Oxygen Home #1 ea 01/23/22 11/08/22 Rx albuterol sulfate 90 mcg/actuation 2 inh inhalation Q6H PRN shortness 01/23/22 04/09/24 Rx aerosol inhaler of breath or wheezing #6.7 grams aspirin 81 mg tablet,delayed 81 mg PO QAM #30 tabs 01/23/22 04/09/24 Rx release walker (Ultra-Light Rollator misc) #1 ea 01/23/22 11/08/22 Rx Oxygen Home #1 ea 03/14/22 11/08/22 Rx lisinopril 5 mg tablet 5 mg PO DAILY 04/24/22 04/09/24 History metformin 500 mg tablet 500 mg PO DAILY 04/24/22 04/09/24 History tiotropium 2.5 mcg-olodaterol 2.5 2 puff inhalation DAILY #4 grams 10/20/22 04/09/24 Rx mcg/actuation mist for inhalation (Stiolto Respimat) cefuroxime axetil 250 mg tablet 0 mg PO USEASDIRECTD 04/09/24 04/09/24 History potassium chloride 10 mEq 0 meq PO DAILY 04/09/24 04/09/24 History tablet,extended release(part/cryst) Patient History Medical History HTN (hypertension) COPD (chronic obstructive pulmonary disease) Diabetes Surgical History Hx of partial mastectomy History of bilateral knee replacement Hx of hernia repair Social History Smoking Status: Current every day smoker Do You Dip or Chew Tobacco: No; Hx Alcohol Use: No Hx Substance Use: No Preferred Language: Mongolian Communication Ability: Impaired 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 Beliefs That Will Affect Care: Spiritual Current Living Situation: Alone Feels Safe at Home: Yes Assistive Devices: Oxygen - Continuous and Walker Review of Systems 2 Review of Systems: All systems reviewed & are unremarkable except as noted in HPI & below Physical Exam 2 Physical Exam: Constitutional: No acute distress HEENT: EOMI, PERRLA Respiratory system: Decreased air entry bilaterally, no wheeze, rhonchi, positive crackles bilateral lower lobes CVS: S1-S2 positive, no murmurs or gallops Abdomen: Soft, nontender, nondistended, positive bowel sounds x4 Extremities: +2 pulses bilaterally radialis/ dorsalis pedis, no cyanosis, +1 pitting edema bilateral lower extremity Neuro: Somnolent, arousable to voice, does not follow commands Psych: Unable to assess G/U: No Arriaga Skin: no rashes, warm and dry Lymphatic: no cervical or axillary lymphadenopathy Results & Data Results & Data Vital Signs (Past 12 Hours) Vital Signs Temp Pulse Pulse Resp BP BP Pulse Ox 04/10/24 09:00 04/10/24 08:52 36.4 C L 102 H 19 109/73 86 L 04/10/24 07:30 95 H 04/10/24 04:10 98/58 L 04/10/24 03:51 36.9 C 97 H 17 90/55 L 90 O2 Del Method O2 Flow Rate 04/10/24 09:00 Nasal Cannula 4 04/10/24 08:52 Nasal Cannula 4 04/10/24 07:30 04/10/24 04:10 04/10/24 03:51 High Flow Nasal Cannula Laboratory Results 04/10/24 07:44 04/10/24 07:44 PG Care Time/CCT Total # of Minutes Spent Total Time Spent with Patient: Total time spent is greater than 50% in coordination of care (as documented) at patient's floor/unit and/or counseling patient: Coding Level of Care Code 87499 INT INP/OBS CARE 375MIN Diagnoses Acute encephalopathy G93.40 Other acute pulmonary embolism, unspecified whether acute cor pulmonale present I26.99 Pulmonary embolism type: other Acute cor pulmonale presence: unspecified Acute on chronic respiratory failure with hypoxia and hypercapnia J96.21; J96.22 Tobacco abuse Z72.0 Lung mass R91.8 COPD (chronic obstructive pulmonary disease) J44.9 Pulmonary hypertension I27.20
--- NOTE | 2024-04-10 15:54 | Communication Note ---
Date of Service: April 10, 2024 Pall Med Brief Note Consult received/appreciated/chart reviewed pt briefly seen while in rad onc she is tired and drifting off at times unable to obtain signif HPI will reattempt tomorrow at bedside. TS 25min, no charge submitted Thank you for allowing us to participate in the ongoing care of this patient. Please page with any additional concerns. Last Lovell DNP Director, Palliative Medicine
--- NOTE | 2024-04-10 16:50 | Ultrasound Report ---
BILATERAL LOWER EXTREMITY VENOUS DOPPLER HISTORY: Acute pain and swelling of the lower legs r/o DVT, B/l COMPARISON STUDY: None. FINDINGS: Occlusive thrombus is noted within both of the duplicated posterior tibial veins of the rig ht leg. Occlusive thrombus noted within the left peroneal vein. No additional DVT identified within e ither leg. IMPRESSION: Bilateral likely acute DVT as above. ACT 112: Negative or not required by law. Electronically signed by: Quincy Samayoa M.D. 04/10/2024 4:48 PM
[2024-04-10] MEDS: BUDESONIDE 0.5 MG/2 ML VIAL (PULMICORT) NEB SCH (18:13)
[2024-04-10] MEDS: FORMOTEROL 20 MCG/2 ML VIAL INH SCH (18:13)
[2024-04-10] MEDS: guaiFENesin 600 MG TABCR PO SCH (19:59)
[2024-04-11] MEDS ORDERED: Nursing to Pharmacy Communication SCH (03:30)
[2024-04-11 04:43] LABS: HCO3 ABG 42 mmol/L (19-24); Oxygen Saturation ABG 97.8 % (90-95); PCO2 ABG 68 mmHg (35-46); PO2 ABG 86 mmHg (80-95)
[2024-04-11 04:45] LABS: Allen Test Pos (Pos)
[2024-04-11 06:14] LABS: Hematocrit (blood only) 39.7 % (37.0-47.0); Hemoglobin 12.3 g/dl (12.0-16.0); Mean Corpuscular Hemoglobin 28.5 pg (25.0-34.0); Mean Corpuscular Volume 91.9 fL (80.0-100.0); Platelet Count 244 K/uL (130-400); RDW Coefficient of Variation 14.4 % (11.5-14.5); Red Blood Count 4.32 M/uL (4.20-5.40); White Blood Count 11.68 K/ul (4.8-10.8)
[2024-04-11 06:47] LABS: BUN Creatinine Ratio 42.9 (10-20); Calcium 9.4 mg/dl (8.6-10.3); Creatinine Clr Calc Pharmacy 48.8 ml/min; Potassium 3.5 mmol/L (3.5-5.1)
[2024-04-11 07:13] LABS: ANTI-Xa, UFH(UnfractionatedHep 0.46 IU/ml (0.3-0.7)
[2024-04-11] MEDS: INSULIN ASPART PER UNIT CHARGE SC SCH (08:46)
--- NOTE | 2024-04-11 09:14 | Pulmonology Progress Note ---
Date of Service April 11, 2024 Assessment & Plan (1) Acute encephalopathy: (2) Acute pulmonary embolism: Acute cor pulmonale presence: unspecified Pulmonary embolism type: other Qualified Code(s): I26.99 - Other pulmonary embolism without acute cor pulmonale (3) Acute on chronic respiratory failure with hypoxia and hypercapnia: (4) Tobacco abuse: (5) Lung mass: (6) COPD (chronic obstructive pulmonary disease): (7) Pulmonary hypertension: Plan CT chest 04-09-24 personally reviewed: Centrilobular and paraseptal emphysema appreciated bilaterally Mass pleural-based in the right lower lobe superior to the granuloma Mucous air in the right lower lobe Calcified granuloma in the right lower lobe Acute pulmonary emboli left upper lobe Significant mediastinal lymphadenopathy especially station 4R and 10R 2D echo 04/10/2024: EF 60-65%, mild concentric LVH, RVSP 40-50 mmHg, RV mild to moderately dilated, flattened septum consistent with RV pressure volume overload ABG 04/10/2024: 7.35/70/95 on 2 L --Acute on chronic hypoxic hypercapnic hypercapnic respiratory failure Hypoxia is combination of COPD as well as acute pulmonary emboli Hypercapnia is likely from underlying COPD BiPAP [id number] right now Procalcitonin 0.13 -- Acute pulmonary emboli with acute DVT bilateral lower extremity Likely secondary to possible malignancy in the pleural-based mass sPESI >1, modalities greater than 8% especially given the elevated BNP and troponin. BNP 290, elevated troponin Continue with heparin drip -- Pulmonary mass Likely lung cancer in some one with significant smoking history Patient had refused to have biopsy done in the past. 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 Due to chronic respiratory failure consequent to COPD, patient now requires a noninvasive home ventilator. This severe COPD is resulting in inability to do proper ventilation causing recurrent hypercapnic respiratory failure with a PaCo2 of 70. Patient would benefit greatly from noninvasive ventilation which would improve lung function and potentially reduce worsening of symptoms. A BiPAP would be ineffective as patient requires a volume targeted mode. Interruption of ventilator support would lead to a decline of health status. NIMV settings should be AVAPS-AE; Breath rate: auto; Inspiratory time:auto; Sigh: off; Tidal Volume: 350-450, PS min: 4-10 PS max: 12-20; EPAP min: 6-10; EPAP max: 10-16; AVAPS rate: 14 during sleep and as needed Please note the above document was generated using voice recognition software. It may contain grammatical, syntax or spelling errors.Any formal questions or concerns about the content, text or information contained within the body of this dictation should be directly addressed to the provider for clarification. Admission and Anticipated Discharge Date Admission Date: April 09, 2024 Subjective Patient seen and examined at bedside. No acute distress, no adverse events overnight She did use BiPAP overnight. Denied any nausea or vomiting. Fair appetite Shortness of breath is improved Denied any chest pain Patient was saturating 92% on half liter oxygen Review of Systems 2 Review of Systems: All systems reviewed & are unremarkable except as noted in Subjective Physical Exam 2 Physical Exam: Constitutional: No acute distress HEENT: EOMI, PERRLA Respiratory system: Decreased air entry bilaterally, no wheeze, rhonchi, positive crackles bilateral lower lobes CVS: S1-S2 positive, no murmurs or gallops Abdomen: Soft, nontender, nondistended, positive bowel sounds x4 Extremities: +2 pulses bilaterally radialis/ dorsalis pedis, no cyanosis, +1 pitting edema bilateral lower extremity Neuro: Awake alert oriented x 3 Psych: Normal mood and affect G/U: Positive Arriaga Skin: no rashes, warm and dry Lymphatic: no cervical or axillary lymphadenopathy Results & Data Results & Data Vital Signs (Past 12 Hours) Vital Signs Temp Pulse Pulse Resp BP BP Pulse Ox 04/11/24 08:56 04/11/24 08:14 101 H 04/11/24 07:41 37.0 C 100 H 17 100/66 97 04/11/24 07:24 100 H 22 97 04/11/24 07:24 100 H 22 95 04/11/24 03:24 36.8 C 96 H 20 99/65 L 96 04/11/24 02:25 91 H 18 93 04/10/24 22:23 91 H 24 94 04/10/24 22:05 36.4 C L 92 H 18 106/74 97 10/03/24 21:47 94 H O2 Del Method O2 Flow Rate FiO2 04/11/24 08:56 Nasal Cannula 4 04/11/24 08:14 04/11/24 07:41 CPAP 04/11/24 07:24 40 04/11/24 07:24 BiPAP 40 04/11/24 03:24 CPAP 04/11/24 02:25 40 04/10/24 22:23 40 04/10/24 22:05 CPAP 04/10/24 21:47 Laboratory Results 04/11/24 05:29 04/11/24 05:29 PG Care Time/CCT Total # of Minutes Spent Total Time Spent with Patient: Total time spent is greater than 50% in coordination of care (as documented) at patient's floor/unit and/or counseling patient: Coding Level of Care Code 43394 SUB INP/OBS CARE 3/50MIN Diagnoses Acute encephalopathy G93.40 Other acute pulmonary embolism, unspecified whether acute cor pulmonale present I26.99 Acute cor pulmonale presence: unspecified Pulmonary embolism type: other Acute on chronic respiratory failure with hypoxia and hypercapnia J96.21; J96.22 Tobacco abuse Z72.0 Lung mass R91.8 COPD (chronic obstructive pulmonary disease) J44.9 Pulmonary hypertension I27.20
--- NOTE | 2024-04-11 23:19 | Palliative Care Consultation ---
Date of Consultation April 11, 2024 Assessment & Plan (1) Cancer related pain: (2) Dyspnea and respiratory abnormalities: (3) Advanced care planning/counseling discussion: 45min face to face ACP with pt who states she does not desire aggressive care or interventions. SHe is willing to complete radiation with a goal of comfort. She wants to return to her own home, states she has children who live within a few minutes of her, and a daughter who is a restaurant shift supervisor here at [facility] that can also help. She asked how she can have more help at home so she won't have to go anywhere else. We discussed hospice and it scope of services in detail. She states this would be agreeable to her and asks that I reach out to her daughter Donna who works here. I sent a tiger text to Donna requesting her available time/date to meet. Awaiting response. Pt states she does not like being in the hospital. She prefers the comfort of her own home and admits much of this is so she can do what she wants such as smoking. She states she knows this caner is not going to be curable and with her medical issues, chemo would not be safe or easy to tolerate. She does not want to make changes to her life or routines. She also does not want to quit smoking. She is seeking a focus to be more about her comfort. I will await response from Donna. (4) Palliative care by specialist: Introduced Palliative Medicine and explained our role in patient's care. Patient and/or family were receptive to palliative services for goals of care discussions. Reviewed we are different from hospice, a home health nurse visiting service. Plan As above I am in OP clinic Sunday and will return on Sunday to the hospital. Pls page me for any urgent needs. Thank you for allowing us to participate in the ongoing care of this patient. Please page with any additional concerns. Last Lovell DNP Director, Palliative Medicine History of Present Illness Reason for Consultation: [facility] frailty Attending Physician: Dada Magallon History of Present Illness Admitted 04/09/24, found to have PNA, RICKY, elevated troponin, chronic resp failure, +acute PE. Active daily smoker, >80PY smoking hx lung and osteolytic lesions found, +met disease CT CHest 04/09/24: Centrilobular and paraseptal emphysema appreciated bilaterally Mass pleural-based in the right lower lobe superior to the granuloma Mucous air in the right lower lobe Calcified granuloma in the right lower lobe Acute pulmonary emboli left upper lobe Significant mediastinal lymphadenopathy especially station 4R and 10R 2D echo 04/10/2024: EF 60-65%, mild concentric LVH, RVSP 40-50 mmHg, RV mild to moderately dilated, flattened septum consistent with RV pressure volume overload Prior BrCa and in 2021 suspicious lung findings noted and further workup declined, she did not keep appt for follow up imaging. She is on home O2 Presented with AMS Mentation clearing but has trouble staying focused and cannot provide many details other than to say: "They tell me I have a lot going on. I know it's cancer. I'll do the radiation but I'm not doing any surgery." Allergies Allergy/AdvReac Type Severity Reaction Status Date / Time codeine AdvReac Intermediate N/V Verified 11/08/22 09:58 Home Medications Medication Instructions Recorded Confirmed Type Oxygen Home #1 ea 01/23/22 11/08/22 Rx albuterol sulfate 90 mcg/actuation 2 inh inhalation Q6H PRN shortness 01/23/22 04/09/24 Rx aerosol inhaler of breath or wheezing #6.7 grams aspirin 81 mg tablet,delayed 81 mg PO QAM #30 tabs 01/23/22 04/09/24 Rx release walker (Ultra-Light Rollator misc) #1 ea 01/23/22 11/08/22 Rx Oxygen Home #1 ea 03/14/22 11/08/22 Rx lisinopril 5 mg tablet 5 mg PO DAILY 04/24/22 04/09/24 History metformin 500 mg tablet 500 mg PO DAILY 04/24/22 04/09/24 History tiotropium 2.5 mcg-olodaterol 2.5 2 puff inhalation DAILY #4 grams 10/20/22 04/09/24 Rx mcg/actuation mist for inhalation (Stiolto Respimat) cefuroxime axetil 250 mg tablet 0 mg PO USEASDIRECTD 04/09/24 04/09/24 History potassium chloride 10 mEq 0 meq PO DAILY 04/09/24 04/09/24 History tablet,extended release(part/cryst) Patient History Medical History HTN (hypertension) COPD (chronic obstructive pulmonary disease) Diabetes Surgical History Hx of partial mastectomy History of bilateral knee replacement Hx of hernia repair Social History Smoking Status: Current every day smoker Do You Dip or Chew Tobacco: No; Hx Alcohol Use: No Hx Substance Use: No Preferred Language: Belarusian Communication Ability: Impaired 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 Beliefs That Will Affect Care: Spiritual Current Living Situation: Alone Feels Safe at Home: Yes Assistive Devices: Oxygen - Continuous and Walker Review of Systems Review of Systems: All systems reviewed & are unremarkable except as noted in Subjective Physical Exam Physical Exam: Bitemp wasting PERRLA frail/elderly female inc WOB, use of accessory muscles noted COnversation dyspnea noted lungs with bilat crackles, rhonchi, no overt wheezing tachy s1s2, irreg abd soft, NTP, BS+ Gen weakness BLE edema/mild skin pale, scatt ecchymoses AAOx3 but at times slow to respond, easily off track/drifts off a bit Results & Data Vital Signs (Past 12 Hours) Vital Signs Temp Pulse Pulse Resp BP Pulse Ox O2 Del Method 04/11/24 22:47 94 H 18 93 04/11/24 22:40 36.8 C 90 14 99/66 L 94 BiPAP 04/11/24 19:38 94 H 26 H 96 04/11/24 19:38 96 H 26 H 94 BiPAP 04/11/24 19:30 BiPAP 04/11/24 19:21 36.6 C 95 H 14 105/66 96 BiPAP 04/11/24 17:18 99 H 04/11/24 15:39 36.6 C 99 H 16 114/74 92 BiPAP 04/11/24 13:52 98 H 22 96 04/11/24 11:35 37.1 C 99 H 17 106/67 96 Nasal Cannula O2 Flow Rate FiO2 04/11/24 22:47 30 04/11/24 22:40 04/11/24 19:38 30 04/11/24 19:38 30 04/11/24 19:30 04/11/24 19:21 04/11/24 17:18 04/11/24 15:39 04/11/24 13:52 40 04/11/24 11:35 4 Laboratory Results data reviewed Diagnostic Findings data reviewed PG Care Time/CCT Total # of Minutes Spent Total Time Spent with Patient: Total time spent is greater than 50% in coordination of care (as documented) at patient's floor/unit and/or counseling patient: I spent 105 minutes overall addressing this case: 20 min in medical data review/discussion with referring provi marycruz(s) and/or preparation for the visit 15 min in direct interaction with the patient/exam 45 min in Advance Care Planning/Goals of Care discussions as detailed above in note (must be >16min) 10 min in subsequent review and synthesis of assessment and plan 15 min communicating with other providers regarding the patient's case: Advanced Care Planning 73513 Advanced Care Planning 30 Min [id number] Advanced Care Planning Additional 30 [place] [address] IN/OBS CONSULT LVL 4,60M (25 - SIGNIFICANT, SEPARATELY IDENTIFIABLE ) Patient Type New Medical Decision Making High Complexity Diagnoses Cancer related pain G89.3 Dyspnea and respiratory abnormalities R06.00; R06.89 Advanced care planning/counseling discussion Z71.89 Palliative care by specialist Z51.5 Additional Codes Advanced Care Planning - 82537 Advanced Care Planning 30 Min: 37280 Advanced Care Planning 30 Min ([id number]) Advanced Care Planning - 64719 Advanced Care Planning Additional 30 Min: 19362 Advanced Care Planning Additional 30 Min ([id number])
--- NOTE | 2024-04-12 11:21 | Pulmonology Progress Note ---
Date of Service April 12, 2024 Assessment & Plan (1) Acute encephalopathy: (2) Acute pulmonary embolism: Acute cor pulmonale presence: unspecified Pulmonary embolism type: other Qualified Code(s): I26.99 - Other pulmonary embolism without acute cor pulmonale (3) Acute on chronic respiratory failure with hypoxia and hypercapnia: (4) Tobacco abuse: (5) Lung mass: (6) COPD (chronic obstructive pulmonary disease): (7) Pulmonary hypertension: Plan CT chest 04-09-24 personally reviewed: Centrilobular and paraseptal emphysema appreciated bilaterally Mass pleural-based in the right lower lobe superior to the granuloma Mucous air in the right lower lobe Calcified granuloma in the right lower lobe Acute pulmonary emboli left upper lobe Significant mediastinal lymphadenopathy especially station 4R and 10R 2D echo 04/10/2024: EF 60-65%, mild concentric LVH, RVSP 40-50 mmHg, RV mild to moderately dilated, flattened septum consistent with RV pressure volume overload ABG 04/10/2024: 7.35/70/95 on 2 L --Acute on chronic hypoxic hypercapnic hypercapnic respiratory failure Hypoxia is combination of COPD as well as acute pulmonary emboli Hypercapnia is likely from underlying COPD BiPAP [id number] right now Procalcitonin 0.13 Due to chronic respiratory failure consequent to COPD, patient now requires a noninvasive home ventilator. This severe COPD is resulting in inability to do proper ventilation causing recurrent hypercapnic respiratory failure with a PaCo2 of 70. Patient would benefit greatly from noninvasive ventilation which would improve lung function and potentially reduce worsening of symptoms. A BiPAP would be ineffective as patient requires a volume targeted mode. Interruption of ventilator support would lead to a decline of health status. NIMV settings should be AVAPS-AE; Breath rate: auto; Inspiratory time:auto; Sigh: off; Tidal Volume: 350-450, PS min: 4-10 PS max: 12-20; EPAP min: 6-10; EPAP max: 10-16; AVAPS rate: 14 during sleep and as needed -- Acute pulmonary emboli with acute DVT bilateral lower extremity Likely secondary to possible malignancy in the pleural-based mass sPESI >1, modalities greater than 8% especially given the elevated BNP and troponin. BNP 290, elevated troponin Continue with heparin drip -- Metabolic alkalosis Likely compensation to chronic hypercapnic respiratory failure -- Pulmonary mass Likely lung cancer in some one with significant smoking history Patient had refused to have biopsy done in the past. 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 Give acetazolamide 250 mg twice a day for 2 days Case management is working on getting the patient AVAPS machine on discharge. Case was discussed with RN at bedside. Please note the above document was generated using voice recognition software. It may contain grammatical, syntax or spelling errors.Any formal questions or concerns about the content, text or information contained within the body of this dictation should be directly addressed to the provider for clarification. Admission and Anticipated Discharge Date Admission Date: April 09, 2024 Subjective Patient seen and examined at bedside. No acute distress, notable symptoms overnight She was saturating 94% on 4 L at the time of examination, I went down to 2 L Overall she stated she is feeling better Reduce the BiPAP overnight Shortness of breath is improved. Still complains of cough and having difficulty bringing it up When she does bring up the phlegm is mostly clear. No hemoptysis Fair appetite Review of Systems 2 Review of Systems: All systems reviewed & are unremarkable except as noted in Subjective Physical Exam 2 Physical Exam: Constitutional: No acute distress HEENT: EOMI, PERRLA Respiratory system: Decreased air entry bilaterally, no wheeze, rhonchi, positive crackles bilateral lower lobes CVS: S1-S2 positive, no murmurs or gallops Abdomen: Soft, nontender, nondistended, positive bowel sounds x4 Extremities: +2 pulses bilaterally radialis/ dorsalis pedis, no cyanosis, +1 pitting edema bilateral lower extremity Neuro: Awake alert oriented x 3 Psych: Normal mood and affect G/U: Positive [place] Skin: no rashes, warm and dry Lymphatic: no cervical or axillary lymphadenopathy Results & Data Results & Data Vital Signs (Past 12 Hours) Vital Signs Temp Pulse Pulse Resp BP Pulse Ox O2 Del Method 04/12/24 11:06 36.8 C 92 H 18 101/66 95 Nasal Cannula 04/12/24 08:09 85 04/12/24 08:09 Nasal Cannula 04/12/24 08:00 36.7 C 88 19 112/64 97 Nasal Cannula 04/12/24 07:06 92 H 20 96 BiPAP 04/12/24 03:27 36.6 C 86 14 108/71 97 BiPAP 04/12/24 02:53 88 27 H 96 O2 Flow Rate FiO2 04/12/24 11:06 4 04/12/24 08:09 04/12/24 08:09 4 04/12/24 08:00 04/12/24 07:06 40 04/12/24 03:27 04/12/24 02:53 30 Laboratory Results 04/11/24 05:29 04/11/24 05:29 PG Care Time/CCT Total # of Minutes Spent Total Time Spent with Patient: Total time spent is greater than 50% in coordination of care (as documented) at patient's floor/unit and/or counseling patient: Coding Level of Care Code 34135 SUB INP/OBS CARE 3/50MIN Diagnoses Acute encephalopathy G93.40 Other acute pulmonary embolism, unspecified whether acute cor pulmonale present I26.99 Acute cor pulmonale presence: unspecified Pulmonary embolism type: other Acute on chronic respiratory failure with hypoxia and hypercapnia J96.21; J96.22 Tobacco abuse Z72.0 Lung mass R91.8 COPD (chronic obstructive pulmonary disease) J44.9 Pulmonary hypertension I27.20
[2024-04-12] MEDS: acetaZOLAMIDE 250 MG in SYRINGE 0 ML IV SCH (12:26)
--- NOTE | 2024-04-12 13:36 | Hospitalist Progress Note ---
Date of Service April 11, 2024 Assessment & Plan (1) Acute pulmonary embolism: Plan: IV heparin standard without bolus TTE to assess for right heart strain: no significant right hear strain. Cosnulted pulmonary for hypoxia/hypercapnea. Appreciate input from pulm. O@ supplementation has improved. 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: Plan: Reportedly started having pain in the center of her back in the Summer Consult palliative care to discuss goals of care as historically has avoided interventions Deferred pulmonology consult pending palliative care discussion Consult radiation oncology to discuss possible palliative pain treatment Acetaminophen 1g IV PRN for pain, avoiding opiates overnight while patient lethargic and altered (3) Sepsis: Plan: Possible diagnosis although no definitive source on admission No initial blood cultures or lactate prior to antibiotics given, ordered on admission Possible source pneumonia with concern for opacification ?aspiration although this may all just be cancer, procalcitonin pending Ceftriaxone given in the ER, will switch to Unasyn + azithromycin contiue unasyn/azithromyucin. (4) Pneumonia: Plan: Similar consolidation on prior CTs although noted to be pneumonia at that time in addition Unasyn + doxycycline Concern for endobronchial obstruction therefore concern for aspiration, SLT consulted Incentive spirometer, flutter valve (5) Acute encephalopathy: Plan: CT head - no acute pathology Suspect secondary to uremia +/- hypoxia (not wearing her usual 2LPM O2) +/- infection, hypercapnia appears chronic and unlikely contributing Consider brain MRI w/wo IV contrast to rule out metastatic disease depending on goals of care discussion with palliative (6) Chronic respiratory failure with hypoxia and hypercapnia: Plan: Baseline 2LPM O2 however she was not wearing this at home, appears to be at her baseline with normal pH at this time suggesting chronic hypercapnia Aim O2 sats 88-82% concern for fluid retnetion in the lung. ordered lasix IV 40 mg x1 on 04/10 (7) RICKY (acute kidney injury): Plan: Suspected pre-renal. NSS 500ml bolus. Additional LR 1L bolus now then @125ml/hr overnight Repeat BMP in AM. 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, uncontrolled: Plan: HbA1C 7.6 in 2021, repeat with AM labs Hold metformin due to RICKY Novolog: --Goal BSG Range: Low 110 mg/dL, High 140 mg/dL --Correction Factor: 45 mg/dL/unit No carb coverage --BSGs ACHS if eating, q6h if npo Add basal dosing if requiring frequent doses of Novolog (10) Hypertension: Plan: Hold antihypertensives given hypotension on admission (11) Abnormal CT scan of lung: Plan VTE prophylaxis - IV heparin Diet - NPO pending speech eval Disposition - admit to PCU Admission and Anticipated Discharge Date Admission Date: April 09, 2024 Subjective 79 yo female reports feeling slightly better than yesterday. Oxygen requirements have improved. Physical Exam Constitutional: well developed; + not well nourished and no acute distress Eyes: PERRL, conjunctivae normal, anicteric sclerae Respiratory: + respiratory distress, + labored breath ing and + uses accessory muscles Auscultation: + crackles; no diminished lung sounds and no wheezes Cardiovascular: Rate/Rhythm: regular rhythm and + tachycardic Heart Sounds: no murmur Extremities: normal capillary refill; no calf tenderness and no pedal edema Gastrointestinal (Abdomen): normal bowel sounds, soft, nontender, no hepatosplenomegaly Skin: no rashes, warm and dry Neurologic: moves all extremities (difficulty following commands but moving all 4 extremities), awake and + confused; no focal motor deficits (no unilateral deficit) Psychiatric: Orientation: alert and oriented to person; + not oriented to place and + not oriented to time Results & Data Results & Data Vital Signs (Past 12 Hours) Vital Signs Temp Pulse Pulse Resp BP Pulse Ox O2 Del Method 04/12/24 12:34 94 Nasal Cannula 04/12/24 12:34 94 Nasal Cannula 04/12/24 11:06 36.8 C 92 H 18 101/66 95 Nasal Cannula 04/12/24 08:09 85 04/12/24 08:09 Nasal Cannula 04/12/24 08:00 36.7 C 88 19 112/64 97 Nasal Cannula 04/12/24 07:06 92 H 20 96 BiPAP 04/12/24 03:27 36.6 C 86 14 108/71 97 BiPAP 04/12/24 02:53 88 27 H 96 O2 Flow Rate FiO2 04/12/24 12:34 2 04/12/24 12:34 4 04/12/24 11:06 4 04/12/24 08:09 04/12/24 08:09 4 04/12/24 08:00 04/12/24 07:06 40 04/12/24 03:27 04/12/24 02:53 30 PG Care Time/CCT Total # of Minutes Spent Total Time Spent with Patient: Total time spent is greater than 50% in coordination of care (as documented) at patient's floor/unit and/or counseling patient: Coding Level of Care Code 93052 SUB INP/OBS CARE 2/35MIN Diagnoses Other acute pulmonary embolism, unspecified whether acute cor pulmonale present I26.99 Pulmonary embolism type: other Acute cor pulmonale presence: unspecified Osteolytic lesion due to metastasis C79.51 Sepsis with acute renal failure without septic shock, due to unspecified organism, unspecified acute renal failure type A41.9; R65.20; N17.9 Sepsis type: sepsis due to unspecified organism Sepsis acute organ dysfunction status: with acute organ dysfunction Severe sepsis acute organ dysfunction type: acute renal failure Acute renal failure type: unspecified Severe sepsis shock status: without septic shock Aspiration pneumonia of right lung, unspecified aspiration pneumonia type, unspecified part of lung J69.0 Pneumonia type: aspiration pneumonia Aspiration pneumonia type: unspecified Laterality: right Lung location: unspecified part of lung Acute encephalopathy G93.40 Chronic respiratory failure with hypoxia and hypercapnia J96.11; J96.12 RICKY (acute kidney injury) N17.9 Elevated INR R79.1 Diabetes mellitus type 2 with complications, uncontrolled Primary hypertension I10 Hypertension type: primary hypertension Abnormal CT scan of lung R91.8 (1) Acute pulmonary embolism Pulmonary embolism type: other Acute cor pulmonale presence: unspecified Qualified Code(s): I26.99 - Other pulmonary embolism without acute cor pulmonale (3) Sepsis Sepsis type: sepsis due to unspecified organism Sepsis acute organ dysfunction status: with acute organ dysfunction Severe sepsis acute organ dysfunction type: acute renal failure Acute renal failure type: unspecified Severe sepsis shock status: without septic shock Qualified Code(s): A41.9 - Sepsis, unspecified organism; R65.20 - Severe sepsis without septic shock; N17.9 - Acute kidney failure, unspecified (4) Pneumonia Pneumonia type: aspiration pneumonia Aspiration pneumonia type: unspecified Laterality: right Lung location: unspecified part of lung Qualified Code(s): J69.0 - Pneumonitis due to inhalation of food and vomit (10) Hypertension Hypertension type: primary hypertension Qualified Code(s): I10 - Essential (primary) hypertension
[2024-04-12] MEDS ORDERED: guaiFENesin 600 MG TABCR PO SCH (21:00)
[2024-04-12 22:15] LABS: Bacteria Urine Automated None Seen (None Seen); Epithelial Cell Urine Auto 0-2 /hpf (0-2); RBC Urine Automated >20 /hpf (0-2)
[2024-04-12 22:49] LABS: Appearance Urine Cloudy (Clear); Bilirubin Urine Negative (Negative); Blood Urine 3+ (Negative); Color Urine Red; Glucose Urine UA Negative (Negative); Ketones Urine Negative (Negative); Leukocyte Esterase Urine 1+ (Negative); Nitrite Urine Negative (Negative); Protein Urine 2+ (Negative); Specific Gravity Urine 1.021 (1.000-1.030); Urobilinogen Urine Positive (Negative); pH Urine >= 9.0 (4.5-7.5)
[2024-04-13 06:41] LABS: ANTI-Xa, UFH(UnfractionatedHep < 0.10 IU/ml (0.3-0.7)
--- NOTE | 2024-04-13 08:28 | Hospitalist Progress Note ---
Date of Service April 12, 2024 Assessment & Plan (1) Acute pulmonary embolism: Plan: IV heparin standard without bolus TTE to assess for right heart strain: no significant right hear strain. Cosnulted pulmonary for hypoxia/hypercapnea. Appreciate input from pulm. O2 supplementation has improved. Now on 2 liters Added acetazolamide. 250 mg BID for 2 days. 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: Plan: Reportedly started having pain in the center of her back in the Summer Consult palliative care to discuss goals of care as historically has avoided interventions Deferred pulmonology consult pending palliative care discussion Consult radiation oncology to discuss possible palliative pain treatment Acetaminophen 1g IV PRN for pain, avoiding opiates overnight while patient lethargic and altered (3) Sepsis: Plan: Possible diagnosis although no definitive source on admission No initial blood cultures or lactate prior to antibiotics given, ordered on admission Possible source pneumonia with concern for opacification ?aspiration although this may all just be cancer, procalcitonin pending Ceftriaxone given in the ER, will switch to Unasyn + azithromycin contiue unasyn/azithromyucin. (4) Pneumonia: Plan: Similar consolidation on prior CTs although noted to be pneumonia at that time in addition Unasyn + doxycycline Concern for endobronchial obstruction therefore concern for aspiration, SLT consulted Incentive spirometer, flutter valve (5) Acute encephalopathy: Plan: CT head - no acute pathology Suspect secondary to uremia +/- hypoxia (not wearing her usual 2LPM O2) +/- infection, hypercapnia appears chronic and unlikely contributing Consider brain MRI w/wo IV contrast to rule out metastatic disease depending on goals of care discussion with palliative (6) Chronic respiratory failure with hypoxia and hypercapnia: Plan: Baseline 2LPM O2 however she was not wearing this at home, appears to be at her baseline with normal pH at this time suggesting chronic hypercapnia Aim O2 sats 88-82% concern for fluid retnetion in the lung. ordered lasix IV 40 mg x1 on 04/10 (7) RICKY (acute kidney injury): Plan: Suspected pre-renal. NSS 500ml bolus. Additional LR 1L bolus now then @125ml/hr overnight Repeat BMP in AM. 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 Patient is calm Review of Systems Review of Systems: All systems reviewed & are unremarkable except as noted in HPI & below Physical Exam Constitutional: well developed; + not well nourished and no acute distress Eyes: PERRL, conjunctivae normal, anicteric sclerae Respiratory: normal respiratory effort Auscultation: + crackles; no diminished lung sounds and no wheezes Cardiovascular: Rate/Rhythm: regular rhythm and + tachycardic Heart Sounds: no murmur Extremities: normal capillary refill; no calf tenderness and no pedal edema Gastrointestinal (Abdomen): normal bowel sounds, soft, nontender, no hepatosplenomegaly Skin: no rashes, warm and dry Neurologic: moves all extremities (difficulty following commands but moving all 4 extremities) and awake Psychiatric: Orientation: alert and oriented to person; + not oriented to place and + not oriented to time Results & Data Results & Data Vital Signs (Past 12 Hours) Vital Signs Temp Pulse Pulse Resp BP BP Pulse Ox 04/13/24 07:58 36.9 C 91 H 16 112/75 92 04/13/24 07:50 04/13/24 07:26 81 20 96 04/13/24 07:22 87 04/13/24 03:06 36.2 C L 86 17 105/67 95 04/13/24 02:26 88 22 94 04/12/24 22:17 36.5 C 80 16 116/77 96 04/12/24 22:02 86 23 95 04/12/24 21:52 94 H O2 Del Method O2 Flow Rate FiO2 04/13/24 07:58 Nasal Cannula 2 04/13/24 07:50 Nasal Cannula 2 04/13/24 07:26 Nasal Cannula 2 04/13/24 07:22 04/13/24 03:06 BiPAP 04/13/24 02:26 30 04/12/24 22:17 BiPAP 04/12/24 22:02 30 04/12/24 21:52 PG Care Time/CCT Total # of Minutes Spent Total Time Spent with Patient: Total time spent is greater than 50% in coordination of care (as documented) at patient's floor/unit and/or counseling patient: Coding Level of Care Code 98870 SUB INP/OBS CARE 235MIN Diagnoses Other acute pulmonary embolism, unspecified whether acute cor pulmonale present I26.99 Acute cor pulmonale presence: unspecified Pulmonary embolism type: other Osteolytic lesion due to metastasis C79.51 Sepsis with acute renal failure without septic shock, due to unspecified organism, unspecified acute renal failure type A41.9; R65.20; N17.9 Acute renal failure type: unspecified Sepsis acute organ dysfunction status: with acute organ dysfunction Sepsis type: sepsis due to unspecified organism Severe sepsis acute organ dysfunction type: acute renal failure Severe sepsis shock status: without septic shock Aspiration pneumonia of right lung, unspecified aspiration pneumonia type, unspecified part of lung J69.0 Aspiration pneumonia type: unspecified Laterality: right Lung location: unspecified part of lung Pneumonia type: aspiration pneumonia Acute encephalopathy G93.40 Chronic respiratory failure with hypoxia and hypercapnia J96.11; J96.12 RICKY (acute kidney injury) N17.9 Elevated INR R79.1 Diabetes mellitus type 2 with complications, uncontrolled Primary hypertension I10 Hypertension type: primary hypertension Abnormal CT scan of lung R91.8 (1) Acute pulmonary embolism Acute cor pulmonale presence: unspecified Pulmonary embolism type: other Qualified Code(s): I26.99 - Other pulmonary embolism without acute cor pulmonale (3) Sepsis Acute renal failure type: unspecified Sepsis acute organ dysfunction status: with acute organ dysfunction Sepsis type: sepsis due to unspecified organism Severe sepsis acute organ dysfunction type: acute renal failure Severe sepsis shock status: without septic shock Qualified Code(s): A41.9 - Sepsis, unspecified organism; R65.20 - Severe sepsis without septic shock; N17.9 - Acute kidney failure, unspecified (4) Pneumonia Aspiration pneumonia type: unspecified Laterality: right Lung location: unspecified part of lung Pneumonia type: aspiration pneumonia Qualified Code(s): J69.0 - Pneumonitis due to inhalation of food and vomit (10) Hypertension Hypertension type: primary hypertension Qualified Code(s): I10 - Essential (primary) hypertension
[2024-04-13 09:20] LABS: Hematocrit (blood only) 39.1 % (37.0-47.0); Mean Corpuscular Hemoglobin 28.4 pg (25.0-34.0); Mean Corpuscular Hgb Conc 30.7 g/dL (32.0-36.0); Mean Corpuscular Volume 92.4 fL (80.0-100.0); Mean Platelet Volume 11.1 fL (9.4-12.4); Platelet Count 224 K/uL (130-400); RDW Coefficient of Variation 14.6 % (11.5-14.5); RDW Standard Deviation 49.1 fL (36.4-46.3); Red Blood Count 4.23 M/uL (4.20-5.40); White Blood Count 10.31 K/ul (4.8-10.8)
[2024-04-13 09:35] LABS: BUN Creatinine Ratio 26.7 (10-20); Calcium 9.6 mg/dl (8.6-10.3); Creatinine Clr Calc Pharmacy 63.7 ml/min; Potassium 3.2 mmol/L (3.5-5.1)
--- NOTE | 2024-04-13 10:03 | Pulmonology Progress Note ---
Date of Service April 13, 2024 Assessment & Plan (1) Acute encephalopathy: (2) Acute pulmonary embolism: Acute cor pulmonale presence: unspecified Pulmonary embolism type: other Qualified Code(s): I26.99 - Other pulmonary embolism without acute cor pulmonale (3) Acute on chronic respiratory failure with hypoxia and hypercapnia: (4) Tobacco abuse: (5) Lung mass: (6) COPD (chronic obstructive pulmonary disease): (7) Pulmonary hypertension: Plan CT chest 04-09-24 personally reviewed: Centrilobular and paraseptal emphysema appreciated bilaterally Mass pleural-based in the right lower lobe superior to the granuloma Mucous air in the right lower lobe Calcified granuloma in the right lower lobe Acute pulmonary emboli left upper lobe Significant mediastinal lymphadenopathy especially station 4R and 10R 2D echo 04/10/2024: EF 60-65%, mild concentric LVH, RVSP 40-50 mmHg, RV mild to moderately dilated, flattened septum consistent with RV pressure volume overload ABG 04/10/2024: 7.35/70/95 on 2 L --Acute on chronic hypoxic hypercapnic hypercapnic respiratory failure Hypoxia is combination of COPD as well as acute pulmonary emboli Hypercapnia is likely from underlying COPD BiPAP [id number] right now Procalcitonin 0.13 Due to chronic respiratory failure consequent to COPD, patient now requires a noninvasive home ventilator. This severe COPD is resulting in inability to do proper ventilation causing recurrent hypercapnic respiratory failure with a PaCo2 of 70. Patient would benefit greatly from noninvasive ventilation which would improve lung function and potentially reduce worsening of symptoms. A BiPAP would be ineffective as patient requires a volume targeted mode. Interruption of ventilator support would lead to a decline of health status. NIMV settings should be AVAPS-AE; Breath rate: auto; Inspiratory time:auto; Sigh: off; Tidal Volume: 350-450, PS min: 4-10 PS max: 12-20; EPAP min: 6-10; EPAP max: 10-16; AVAPS rate: 14 during sleep and as needed -- Acute pulmonary emboli with acute DVT bilateral lower extremity Likely secondary to possible malignancy in the pleural-based mass sPESI >1, modalities greater than 8% especially given the elevated BNP and troponin. BNP 290, elevated troponin Continue with heparin drip -- Metabolic alkalosis Likely compensation to chronic hypercapnic respiratory failure -- Pulmonary mass Likely lung cancer in some one with significant smoking history Patient had refused to have biopsy done in the past. 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 Give acetazolamide 250 mg twice a day for 1 more day Case management is working on getting the patient AVAPS machine on discharge. Case was discussed with primary team No further recommendation from pulmonary perspective, will sign off Please call directly with any questions Please note the above document was generated using voice recognition software. It may contain grammatical, syntax or spelling errors.Any formal questions or concerns about the content, text or information contained within the body of this dictation should be directly addressed to the provider for clarification. Admission and Anticipated Discharge Date Admission Date: April 09, 2024 Subjective Patient seen and examined at bedside. No acute distress, no adverse events overnight She was saturating 97% on 2 L, wean down to 1 L Overall she says she is feeling better Denies any chest pain, occasional cough with clear phlegm Fair appetite, no nausea vomiting Did use her BiPAP last night. Review of Systems 2 Review of Systems: All systems reviewed & are unremarkable except as noted in Subjective Physical Exam 2 Physical Exam: Constitutional: No acute distress HEENT: EOMI, PERRLA Respiratory system: Decreased air entry bilaterally, no wheeze, rhonchi, positive crackles bilateral lower lobes CVS: S1-S2 positive, no murmurs or gallops Abdomen: Soft, nontender, nondistended, positive bowel sounds x4 Extremities: +2 pulses bilaterally radialis/ dorsalis pedis, no cyanosis, +1 pitting edema bilateral lower extremity Neuro: Awake alert oriented x 3 Psych: Normal mood and affect G/U: Positive [place] Skin: no rashes, warm and dry Lymphatic: no cervical or axillary lymphadenopathy Results & Data Results & Data Vital Signs (Past 12 Hours) Vital Signs Temp Pulse Pulse Resp BP BP Pulse Ox 04/13/24 07:58 36.9 C 91 H 16 112/75 92 04/13/24 07:50 04/13/24 07:26 81 20 96 04/13/24 07:22 87 04/13/24 03:06 36.2 C L 86 17 105/67 95 04/13/24 02:26 88 22 94 04/12/24 22:17 36.5 C 80 16 116/77 96 O2 Del Method O2 Flow Rate FiO2 04/13/24 07:58 Nasal Cannula 2 04/13/24 07:50 Nasal Cannula 2 04/13/24 07:26 Nasal Cannula 2 04/13/24 07:22 04/13/24 03:06 BiPAP 04/13/24 02:26 30 04/12/24 22:17 BiPAP Laboratory Results 04/13/24 08:42 04/13/24 08:42 PG Care Time/CCT Total # of Minutes Spent Total Time Spent with Patient: Total time spent is greater than 50% in coordination of care (as documented) at patient's floor/unit and/or counseling patient: Coding Level of Care Code 80066 SUB INP/OBS CARE 2/35MIN Diagnoses Acute encephalopathy G93.40 Other acute pulmonary embolism, unspecified whether acute cor pulmonale present I26.99 Acute cor pulmonale presence: unspecified Pulmonary embolism type: other Acute on chronic respiratory failure with hypoxia and hypercapnia J96.21; J96.22 Tobacco abuse Z72.0 Lung mass R91.8 COPD (chronic obstructive pulmonary disease) J44.9 Pulmonary hypertension I27.20
[2024-04-13 16:44] LABS: ANTI-Xa, UFH(UnfractionatedHep 0.19 IU/ml (0.3-0.7)
[2024-04-13] MEDS ORDERED: HEPARIN SOD (PORCINE) 1000 UNIT/ML IV ONE (16:49)
[2024-04-13] MEDS: HEPARIN IV BOLUS 2,000 UNITS in SYRINGE 0 ML IV ONE (17:42)
--- NOTE | 2024-04-13 21:51 | Hospitalist Progress Note ---
Date of Service April 13, 2024 Assessment & Plan (1) Acute pulmonary embolism: Plan: IV heparin standard without bolus TTE to assess for right heart strain: no significant right hear strain. Cosnulted pulmonary for hypoxia/hypercapnea. Appreciate input from pulm. O2 supplementation has improved. Now on 2 liters completed acetazolamide. 250 mg BID for 2 days. Acute hematuria: Held heparin for a few hours. this was resumed once hematuria resolved. 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: Plan: Reportedly started having pain in the center of her back in the Summer Consult palliative care to discuss goals of care as historically has avoided interventions Deferred pulmonology consult pending palliative care discussion Consult radiation oncology to discuss possible palliative pain treatment Acetaminophen 1g IV PRN for pain, avoiding opiates overnight while patient lethargic and altered (3) Sepsis: Plan: Possible diagnosis although no definitive source on admission No initial blood cultures or lactate prior to antibiotics given, ordered on admission Possible source pneumonia with concern for opacification ?aspiration although this may all just be cancer, procalcitonin pending Ceftriaxone given in the ER, will switch to Unasyn + azithromycin contiue unasyn/azithromyucin. (4) Pneumonia: Plan: Similar consolidation on prior CTs although noted to be pneumonia at that time in addition Unasyn + doxycycline Concern for endobronchial obstruction therefore concern for aspiration, SLT consulted Incentive spirometer, flutter valve (5) Acute encephalopathy: Plan: CT head - no acute pathology Suspect secondary to uremia +/- hypoxia (not wearing her usual 2LPM O2) +/- infection, hypercapnia appears chronic and unlikely contributing Consider brain MRI w/wo IV contrast to rule out metastatic disease depending on goals of care discussion with palliative (6) Chronic respiratory failure with hypoxia and hypercapnia: Plan: Baseline 2LPM O2 however she was not wearing this at home, appears to be at her baseline with normal pH at this time suggesting chronic hypercapnia Aim O2 sats 88-82% concern for fluid retnetion in the lung. ordered lasix IV 40 mg x1 on 04/10 (7) RICKY (acute kidney injury): Plan: Suspected pre-renal. NSS 500ml bolus. Additional LR 1L bolus now then @125ml/hr overnight Repeat BMP in AM. 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 Overnight she had hematuria. Review of Systems Review of Systems: All systems reviewed & are unremarkable except as noted in HPI & below Physical Exam Constitutional: well developed; + not well nourished and no acute distress Eyes: PERRL, conjunctivae normal, anicteric sclerae Respiratory: normal respiratory effort, + respiratory distress, + labored breathing and + uses accessory muscles Auscultation: + crackles; no diminished lung sounds and no wheezes Cardiovascular: Rate/Rhythm: regular rhythm and + tachycardic Heart Sounds: no murmur Extremities: normal capillary refill; no calf tenderness and no pedal edema Gastrointestinal (Abdomen): normal bowel sounds, soft, nontender, no hepatosplenomegaly Skin: no rashes, warm and dry Neurologic: moves all extremities (difficulty following commands but moving all 4 extremities), awake and + confused; no focal motor deficits (no unilateral deficit) Psychiatric: Orientation: alert and oriented to person; + not oriented to place and + not oriented to time Results & Data Results & Data Vital Signs (Past 12 Hours) Vital Signs Temp Pulse Pulse Resp BP BP Pulse Ox 04/13/24 20:35 84 18 91 04/13/24 19:32 36.8 C 90 14 109/67 95 04/13/24 16:24 37.3 C 94 H 17 117/77 94 04/13/24 14:34 96 H 04/13/24 10:50 36.8 C 92 H 17 104/64 93 O2 Del Method O2 Flow Rate 04/13/24 20:35 Nasal Cannula 2 04/13/24 19:32 Nasal Cannula 2.0 04/13/24 16:24 Nasal Cannula 2 04/13/24 14:34 04/13/24 10:50 Nasal Cannula 1 PG Care Time/CCT Total # of Minutes Spent Total Time Spent with Patient: Total time spent is greater than 50% in coordination of care (as documented) at patient's floor/unit and/or counseling patient: Coding Level of Care Code 26178 SUB INP/OBS CARE 2/35MIN Diagnoses Other acute pulmonary embolism, unspecified whether acute cor pulmonale present I26.99 Acute cor pulmonale presence: unspecified Pulmonary embolism type: other Osteolytic lesion due to metastasis C79.51 Sepsis with acute renal failure without septic shock, due to unspecified organism, unspecified acute renal failure type A41.9; R65.20; N17.9 Acute renal failure type: unspecified Sepsis acute organ dysfunction status: with acute organ dysfunction Sepsis type: sepsis due to unspecified organism Severe sepsis acute organ dysfunction type: acute renal failure Severe sepsis shock status: without septic shock Aspiration pneumonia of right lung, unspecified aspiration pneumonia type, unspecified part of lung J69.0 Aspiration pneumonia type: unspecified Laterality: right Lung location: unspecified part of lung Pneumonia type: aspiration pneumonia Acute encephalopathy G93.40 Chronic respiratory failure with hypoxia and hypercapnia J96.11; J96.12 RICKY (acute kidney injury) N17.9 Elevated INR R79.1 Diabetes mellitus type 2 with complications, uncontrolled Primary hypertension I10 Hypertension type: primary hypertension Abnormal CT scan of lung R91.8 (1) Acute pulmonary embolism Acute cor pulmonale presence: unspecified Pulmonary embolism type: other Qualified Code(s): I26.99 - Other pulmonary embolism without acute cor pulmonale (3) Sepsis Acute renal failure type: unspecified Sepsis acute organ dysfunction status: with acute organ dysfunction Sepsis type: sepsis due to unspecified organism Severe sepsis acute organ dysfunction type: acute renal failure Severe sepsis shock status: without septic shock Qualified Code(s): A41.9 - Sepsis, unspecified organism; R65.20 - Severe sepsis without septic shock; N17.9 - Acute kidney failure, unspecified (4) Pneumonia Aspiration pneumonia type: unspecified Laterality: right Lung location: unspecified part of lung Pneumonia type: aspiration pneumonia Qualified Code(s): J69.0 - Pneumonitis due to inhalation of food and vomit (10) Hypertension Hypertension type: primary hypertension Qualified Code(s): I10 - Essential (primary) hypertension
[2024-04-14] LABS: ANTI-Xa, UFH(UnfractionatedHep 0.43 IU/ml (0.3-0.7)
[2024-04-14 08:17] LABS: ANTI-Xa, UFH(UnfractionatedHep 0.35 IU/ml (0.3-0.7)
[2024-04-14] MEDS: ACETAMINOPHEN 325 MG TAB PO PRN (13:58)
--- NOTE | 2024-04-14 14:55 | Palliative Family Discussion ---
Date of Service April 14, 2024 Patient Directed Conference Time of [id number] Participants: Nona Lovell DNP Patient participation: no Patient Support System: dtr Other Healthcare Provider Participation: None Meeting Location: telephonic Advanced Directive available: yes, pt is no code Atelephonic ACP meeting was held for NORMA M[place]AG[place]. This meeting was necessary for determining the appropriate course of treatment. Topics of Discussion Topics of Discussion: I spoke with dtr Donna and she shared there is no one other than her to care for pt so she wants to know what SNF for rehab trial then conversion to comfort/LTC and ?maybe add hospice would look like as far as costs etc. She also asked if there are any inpatient hospice options up by them, so I told her I would pass this along. I spent a good amount of time discussing hospice at home vs SNF, but the son and grand daughter do not want to help and so dtr cannot do it on her own though she is willing to bring Korin to her own home just doesn't have caregiver support. Other Content of Meetin. Opportunity given for participants to speak and ask questions. 2. Participants were assured of attention to patient comfort. 3. Reassurance provided. 4. Support was provided for informed, good-ekaterina decisions. 5. Emotions expressed by family were acknowledged and addressed. TS 40min/ACP Thank you for allowing us to participate in the ongoing care of this patient. Please page with any additional concerns. Last Lovell DNP Director, Palliative Medicine
[2024-04-14 19:27] LABS: BUN Creatinine Ratio 18.3 (10-20); Calcium 9.3 mg/dl (8.6-10.3); Creatinine Clr Calc Pharmacy 62.2 ml/min; Potassium 3.1 mmol/L (3.5-5.1)
--- NOTE | 2024-04-15 07:04 | Hospitalist Progress Note ---
Date of Service April 14, 2024 Assessment & Plan (1) Acute pulmonary embolism: Plan: IV heparin standard without bolus TTE to assess for right heart strain: no significant right heart strain. Cosnulted pulmonary for hypoxia/hypercapnea. Appreciate input from pulm. O2 supplementation has improved. Now on 2 liters completed acetazolamide. 250 mg BID for 2 days. Sent kat script to outpatient pharmacy to check farley (04/14) Acute hematuria: on night of 04/12: Held heparin for a few hours. this was resumed once hematuria resolved. 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 Acetaminophen 1g IV PRN for pain, avoiding opiates overnight while patient lethargic and altered (3) Sepsis: Plan: Possible diagnosis although no definitive source on admission No initial blood cultures or lactate prior to antibiotics given, ordered on admission Possible source pneumonia with concern for opacification ?aspiration although this may all just be cancer, procalcitonin pending Ceftriaxone given in the ER, will switch to Unasyn + azithromycin contiue unasyn/azithromyucin. (4) Pneumonia: Plan: Similar consolidation on prior CTs although noted to be pneumonia at that time in addition Unasyn + azithromycin Concern for endobronchial obstruction therefore concern for aspiration, SLT consulted Incentive spirometer, flutter valve (5) Acute encephalopathy: Plan: Metabolic encephalopathy CT head - no acute pathology Suspect secondary to uremia +/- hypoxia (not wearing her usual 2LPM O2) +/- infection, hypercapnia appears chronic and unlikely contributing IMproved, memory is poor but is now able to be reoriented. (6) Chronic respiratory failure with hypoxia and hypercapnia: Plan: Baseline 2LPM O2 however she was not wearing this at home, appears to be at her baseline with normal pH at this time suggesting chronic hypercapnia Aim O2 sats 88-82% concern for fluid retnetion in the lung. ordered lasix IV 40 mg x1 on 04/10 (7) RICKY (acute kidney injury): Plan: Suspected pre-renal.resolved. (8) Elevated INR: Plan: Vitamin K 10mg IV, repeat INR with AM labs (9) Diabetes mellitus type 2 with complications, uncontrolled: Plan: HbA1C 7.6 in 2021, repeat with AM labs Hold metformin due to RICKY Novolog: --Goal BSG Range: Low 110 mg/dL, High 140 mg/dL --Correction Factor: 45 mg/dL/unit No carb coverage --BSGs ACHS if eating, q6h if npo Add basal dosing if requiring frequent doses of Novolog (10) Hypertension: Plan: Hold antihypertensives given hypotension on admission (11) Abnormal CT scan of lung: Plan VTE prophylaxis - IV heparin Disposition - admit to PCU Rehab placement: awaiting also 5 days of radiation therapy, concludes 04/18 Admission and Anticipated Discharge Date Admission Date: April 09, 2024 Subjective Patient reports no new symptoms. Patient's memory remains poor. Physical Exam Constitutional: well developed; + not well nourished and no acute distress Eyes: PERRL, conjunctivae normal, anicteric sclerae Respiratory: normal respiratory effort, + respiratory distress, + labored breathing and + uses accessory muscles Auscultation: + crackles; no diminished lung sounds and no wheezes Cardiovascular: Rate/Rhythm: regular rhythm and + tachycardic Heart Sounds: no murmur Extremities: normal capillary refill; no calf tenderness and no pedal edema Gastrointestinal (Abdomen): normal bowel sounds, soft, nontender, no hepatospl enomegaly Skin: no rashes, warm and dry Neurologic: moves all extremities (difficulty following commands but moving all 4 extremities), awake and + confused; no focal motor deficits (no unilateral deficit) Psychiatric: Orientation: alert and oriented to person; + not oriented to place and + not oriented to time Results & Data Results & Data Vital Signs (Past 12 Hours) Vital Signs Temp Pulse Pulse Resp BP BP Pulse Ox 04/15/24 03:03 36.9 C 89 16 122/73 95 04/14/24 23:30 89 20 97 04/14/24 23:28 36.4 C L 90 16 111/71 96 04/14/24 23:26 92 H 04/14/24 20:46 89 18 97 04/14/24 20:00 04/14/24 19:31 36.7 C 84 14 112/70 97 O2 Del Method O2 Flow Rate FiO2 04/15/24 03:03 Nasal Cannula 1.0 04/14/24 23:30 30 04/14/24 23:28 Nasal Cannula 2.0 04/14/24 23:26 04/14/24 20:46 Nasal Cannula 2 04/14/24 20:00 Nasal Cannula 2 04/14/24 19:31 Nasal Cannula 2.0 PG Care Time/CCT Total # of Minutes Spent Total Time Spent with Patient: Total time spent is greater than 50% in coordination of care (as documented) at patient's floor/unit and/or counseling patient: Coding Level of Care Code 81677 SUB INP/OBS CARE 235MIN Diagnoses Other acute pulmonary embolism, unspecified whether acute cor pulmonale present I26.99 Pulmonary embolism type: other Acute cor pulmonale presence: unspecified Osteolytic lesion due to metastasis C79.51 Sepsis with acute renal failure without septic shock, due to unspecified organism, unspecified acute renal failure type A41.9; R65.20; N17.9 Sepsis type: sepsis due to unspecified organism Sepsis acute organ dysfunction status: with acute organ dysfunction Severe sepsis acute organ dysfunction type: acute renal failure Acute renal failure type: unspecified Severe sepsis shock status: without septic shock Aspiration pneumonia of right lung, unspecified aspiration pneumonia type, unspecified part of lung J69.0 Pneumonia type: aspiration pneumonia Aspiration pneumonia type: unspecified Laterality: right Lung location: unspecified part of lung Acute encephalopathy G93.40 Chronic respiratory failure with hypoxia and hypercapnia J96.11; J96.12 RICKY (acute kidney injury) N17.9 Elevated INR R79.1 Diabetes mellitus type 2 with complications, uncontrolled Primary hypertension I10 Hypertension type: primary hypertension Abnormal CT scan of lung R91.8 (1) Acute pulmonary embolism Pulmonary embolism type: other Acute cor pulmonale presence: unspecified Qualified Code(s): I26.99 - Other pulmonary embolism without acute cor pulmonale (3) Sepsis Sepsis type: sepsis due to unspecified organism Sepsis acute organ dysfunction status: with acute organ dysfunction Severe sepsis acute organ dysfunction type: acute renal failure Acute renal failure type: unspecified Severe sepsis shock status: without septic shock Qualified Code(s): A41.9 - Sepsis, unspecified organism; R65.20 - Severe sepsis without septic shock; N17.9 - Acute kidney failure, unspecified (4) Pneumonia Pneumonia type: aspiration pneumonia Aspiration pneumonia type: unspecified Laterality: right Lung location: unspecified part of lung Qualified Code(s): J69.0 - Pneumonitis due to inhalation of food and vomit (10) Hypertension Hypertension type: primary hypertension Qualified Code(s): I10 - Essential (primary) hypertension
--- NOTE | 2024-04-15 07:24 | Hospitalist Progress Note ---
Date of Service April 15, 2024 Assessment & Plan (1) Acute pulmonary embolism: Plan: malignancy associated VTE IV heparin standard without bolus TTE :no significant right heart strain. Consulted pulmonary for hypoxia/hypercapnea. Hypoxia is combination of COPD as well as acute pulmonary emboli Hypercapnia is likely from underlying COPD, typically on home oxygen of 2 liters recommending home ventilator completed acetazolamide. 250 mg BID for 2 days. starting eliquis at this time Acute hematuria:resolved 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: Plan: Reportedly started having pain in the center of her back in the Summer 04/14/24 palliative care discussion. cannot be cared for at home, consider snf Consult radiation oncology: plan is for 5 Straight days of radiation therapy. Acetaminophen 1g IV PRN for pain, avoiding opiates overnight while patient lethargic and altered (3) Sepsis: Plan: Possible source pneumonia with concern for opacification ?aspiration although this may all just be cancer, procalcitonin pending Ceftriaxone given in the ER, Unasyn + azithromycin Concern for endobronchial obstruction therefore concern for aspiration, SLT consulted Incentive spirometer, flutter valve Metabolic encephalopathy, multifactoral pneumonia, uremia hypoxia CT head - no acute pathology Improved, memory is poor but is now able to be reoriented. (4) Chronic respiratory failure with hypoxia and hypercapnia: Plan: Baseline 2LPM O2 however she was not wearing this at home, appears to be at her baseline with normal pH at this time suggesting chronic hypercapnia Aim O2 sats 88-82% Hypoxia is combination of COPD as well as acute pulmonary emboli Hypercapnia is likely from underlying COPD Due to chronic respiratory failure consequent to COPD, patient now requires a noninvasive home ventilator. This severe COPD is resulting in inability to do proper ventilation causing recurrent hypercapnic respiratory failure with a PaCo2 of 70. Patient would benefit greatly from noninvasive ventilation which would improve lung function and potentially reduce worsening of symptoms. A BiPAP would be ineffective as patient requires a volume targeted mode. Interruption of ventilator support would lead to a decline of health status. NIMV settings should be AVAPS-AE; Breath rate: auto; Inspiratory time:auto; Sigh: off; Tidal Volume: 350-450, PS min: 4-10 PS max: 12-20; EPAP min: 6-10; EPAP max: 10-16; AVAPS rate: 14 during sleep and as needed (5) RICKY (acute kidney injury): Plan: Suspected pre-renal.resolved. now ckd 3 (6) Diabetes mellitus type 2 with complications, uncontrolled: Plan: HbA1C 7.6 in 2021, repeat with AM labs Hold metformin due to RICKY Novolog: --Goal BSG Range: Low 110 mg/dL, High 140 mg/dL --Correction Factor: 45 mg/dL/unit No carb coverage --BSGs ACHS if eating, q6h if npo Add basal dosing if requiring frequent doses of Novolog Plan Rehab placement: awaiting also 5 days of radiation therapy, concludes 04/18 Admission and Anticipated Discharge Date Admission Date: April 09, 2024 Subjective pt was in good spirits, eating lunch confirms wants to complete XRT while in the hospital still considering subacute rehab Physical Exam Physical Exam: lungs are diminished cardiac is regular with murmur Results & Data Results & Data Vital Signs (Past 12 Hours) Vital Signs Temp Pulse Pulse Resp BP BP Pulse Ox 04/15/24 03:03 98.4 F 89 16 122/73 95 04/14/24 23:30 89 20 97 04/14/24 23:28 97.5 F L 90 16 111/71 96 04/14/24 23:26 92 H 04/14/24 20:46 89 18 97 04/14/24 20:00 04/14/24 19:31 98.1 F 84 14 112/70 97 O2 Del Method O2 Flow Rate FiO2 04/15/24 03:03 Nasal Cannula 1.0 04/14/24 23:30 30 04/14/24 23:28 Nasal Cannula 2.0 04/14/24 23:26 04/14/24 20:46 Nasal Cannula 2 04/14/24 20:00 Nasal Cannula 2 04/14/24 19:31 Nasal Cannula 2.0 Laboratory Results review chemistry- replete magnesium and potassium PG Care Time/CCT Total # of Minutes Spent Total Time Spent with Patient: Total time spent is greater than 50% in coordination of care (as documented) at patient's floor/unit and/or counseling patient: Coding Level of Care Code 80093 SUB INP/OBS CARE 3/50MIN Diagnoses Other acute pulmonary embolism, unspecified whether acute cor pulmonale present I26.99 Acute cor pulmonale presence: unspecified Pulmonary embolism type: other Osteolytic lesion due to metastasis C79.51 Sepsis with acute renal failure without septic shock, due to unspecified organism, unspecified acute renal failure type A41.9; R65.20; N17.9 Acute renal failure type: unspecified Sepsis acute organ dysfunction status: with acute organ dysfunction Sepsis type: sepsis due to unspecified organism Severe sepsis acute organ dysfunction type: acute renal failure Severe sepsis shock status: without septic shock Chronic respiratory failure with hypoxia and hypercapnia J96.11; J96.12 RICKY (acute kidney injury) N17.9 Diabetes mellitus type 2 with complications, uncontrolled (1) Acute pulmonary embolism Acute cor pulmonale presence: unspecified Pulmonary embolism type: other Qualified Code(s): I26.99 - Other pulmonary embolism without acute cor pulmonale (3) Sepsis Acute renal failure type: unspecified Sepsis acute organ dysfunction status: with acute organ dysfunction Sepsis type: sepsis due to unspecified organism Severe sepsis acute organ dysfunction type: acute renal failure Severe sepsis shock status: without septic shock Qualified Code(s): A41.9 - Sepsis, unspecified organism; R65.20 - Severe sepsis without septic shock; N17.9 - Acute kidney failure, unspecified
[2024-04-15 08:24] LABS: BUN Creatinine Ratio 13.3 (10-20); Calcium 9.5 mg/dl (8.6-10.3); Creatinine Clr Calc Pharmacy 63.5 ml/min; Magnesium 1.5 mg/dl (1.7-2.4); Potassium 3.4 mmol/L (3.5-5.1)
[2024-04-15 08:27] LABS: ANTI-Xa, UFH(UnfractionatedHep 0.36 IU/ml (0.3-0.7)
[2024-04-15] MEDS: APIXABAN 5 MG TABLET PO SCH (18:42)
[2024-04-15] MEDS: MAGNESIUM OXIDE 400 MG TAB PO SCH (21:17)
[2024-04-15] MEDS: POTASSIUM CHLORIDE CRTAB 20 MEQ TABCR PO SCH (21:19)
[2024-04-16 07:18] LABS: BUN Creatinine Ratio 21.4 (10-20); Calcium 9.4 mg/dl (8.6-10.3); Creatinine Clr Calc Pharmacy 68.3 ml/min; Magnesium 1.6 mg/dl (1.7-2.4); Potassium 3.6 mmol/L (3.5-5.1)
[2024-04-16 07:20] LABS: ANTI-Xa, UFH(UnfractionatedHep > 1.50 IU/ml (0.3-0.7)
--- NOTE | 2024-04-16 15:26 | Hospitalist Progress Note ---
Date of Service April 16, 2024 Assessment & Plan (1) Acute pulmonary embolism: Plan: malignancy associated VTE IV heparin standard without bolus TTE :no significant right heart strain. Consulted pulmonary for hypoxia/hypercapnea. Hypoxia is combination of COPD as well as acute pulmonary emboli Hypercapnia is likely from underlying COPD, typically on home oxygen of 2 liters recommending home ventilator completed acetazolamide. 250 mg BID for 2 days. starting eliquis at this time Acute hematuria:resolved 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: Plan: Reportedly started having pain in the center of her back in the Summer 04/14/24 palliative care discussion. cannot be cared for at home, consider snf Consult radiation oncology: plan is for 5 days of radiation therapy. Acetaminophen 1g IV PRN for pain, avoiding opiates overnight while patient lethargic and altered (3) Sepsis: Plan: Possible source pneumonia with concern for opacification ?aspiration although this may all just be cancer, procalcitonin pending Ceftriaxone given in the ER, Unasyn + azithromycin Concern for endobronchial obstruction therefore concern for aspiration, SLT consulted Incentive spirometer, flutter valve Metabolic encephalopathy, multifactoral pneumonia, uremia hypoxia CT head - no acute pathology Improved, memory is poor but is now able to be reoriented. (4) Chronic respiratory failure with hypoxia and hypercapnia: Plan: Baseline 2LPM O2 however she was not wearing this at home, appears to be at her baseline with normal pH at this time suggesting chronic hypercapnia Aim O2 sats 88-82% Hypoxia is combination of COPD as well as acute pulmonary emboli Hypercapnia is likely from underlying COPD Due to chronic respiratory failure consequent to COPD, patient now requires a noninvasive home ventilator. This severe COPD is resulting in inability to do proper ventilation causing recurrent hypercapnic respiratory failure with a PaCo2 of 70. Patient would benefit greatly from noninvasive ventilation which would improve lung function and potentially reduce worsening of symptoms. A BiPAP would be ineffective as patient requires a volume targeted mode. Interruption of ventilator support would lead to a decline of health status. NIMV settings should be AVAPS-AE; Breath rate: auto; Inspiratory time:auto; Sigh: off; Tidal Volume: 350-450, PS min: 4-10 PS max: 12-20; EPAP min: 6-10; EPAP max: 10-16; AVAPS rate: 14 during sleep and as needed (5) RICKY (acute kidney injury): Plan: Suspected pre-renal.resolved. now ckd 3 (6) Diabetes mellitus type 2 with complications, uncontrolled: Plan: HbA1C 7.6 in 2021, repeat with AM labs Hold metformin due to IRCKY Novolog: --Goal BSG Range: Low 110 mg/dL, High 140 mg/dL --Correction Factor: 45 mg/dL/unit No carb coverage --BSGs ACHS if eating, q6h if npo Add basal dosing if requiring frequent doses of Novolog Plan Rehab placement: awaiting also 5 days of radiation therapy, concludes 04/18 Admission and Anticipated Discharge Date Admission Date: April 09, 2024 Subjective pt has no new concerns, has good appetite. she has some misunderstanding about her XRT, after treatment will consider [facility] Physical Exam Physical Exam: pt is doing well, cardiac is regular with murmur lungs are diminished at the bases abd is soft and non tender Results & Data Results & Data Vital Signs (Past 12 Hours) Vital Signs Temp Pulse Pulse Resp BP Pulse Ox O2 Del Method 04/16/24 10:28 97.9 F 90 17 105/58 L 95 Nasal Cannula 04/16/24 08:00 95 H 04/16/24 08:00 Nasal Cannula 04/16/24 07:57 82 19 107/64 100 Nebulizer 04/16/24 07:50 91 H 18 95 Nasal Cannula O2 Flow Rate 04/16/24 10:28 2 04/16/24 08:00 04/16/24 08:00 2 04/16/24 07:57 04/16/24 07:50 2 Laboratory Results review chemistry review magnesium is low PG Care Time/CCT Total # of Minutes Spent Total Time Spent with Patient: Total time spent is greater than 50% in coordination of care (as documented) at patient's floor/unit and/or counseling patient: Coding Level of Care Code 85591 SUB INP/OBS CARE 2/35MIN Diagnoses Other acute pulmonary embolism, unspecified whether acute cor pulmonale present I26.99 Acute cor pulmonale presence: unspecified Pulmonary embolism type: other Osteolytic lesion due to metastasis C79.51 Sepsis with acute renal failure without septic shock, due to unspecified organism, unspecified acute renal failure type A41.9; R65.20; N17.9 Acute renal failure type: unspecified Sepsis acute organ dysfunction status: with acute organ dysfunction Sepsis type: sepsis due to unspecified organism Severe sepsis acute organ dysfunction type: acute renal failure Severe sepsis shock status: without septic shock Chronic respiratory failure with hypoxia and hypercapnia J96.11; J96.12 RICKY (acute kidney injury) N17.9 Diabetes mellitus type 2 with complications, uncontrolled (1) Acute pulmonary embolism Acute cor pulmonale presence: unspecified Pulmonary embolism type: other Qualified Code(s): I26.99 - Other pulmonary embolism without acute cor pulmonale (3) Sepsis Acute renal failure type: unspecified Sepsis acute organ dysfunction status: with acute organ dysfunction Sepsis type: sepsis due to unspecified organism Severe sepsis acute organ dysfunction type: acute renal failure Severe sepsis shock status: without septic shock Qualified Code(s): A41.9 - Sepsis, unspecified organism; R65.20 - Severe sepsis without septic shock; N17.9 - Acute kidney failure, unspecified
[2024-04-17] MEDS: ALBUT/IPRATROP 3MG/0.5MG NEB 3 ML VIAL NEB STA (05:17)
[2024-04-17 06:11] LABS: Hematocrit (blood only) 32.6 % (37.0-47.0); Hemoglobin 10.2 g/dl (12.0-16.0); Mean Corpuscular Hgb Conc 31.3 g/dL (32.0-36.0); Mean Corpuscular Volume 92.6 fL (80.0-100.0); Mean Platelet Volume 10.6 fL (9.4-12.4); Platelet Count 240 K/uL (130-400); RDW Coefficient of Variation 15.1 % (11.5-14.5); RDW Standard Deviation 50.7 fL (36.4-46.3); Red Blood Count 3.52 M/uL (4.20-5.40); White Blood Count 6.78 K/ul (4.8-10.8)
[2024-04-17 06:23] LABS: BUN Creatinine Ratio 26.3 (10-20); Calcium 9.6 mg/dl (8.6-10.3); Creatinine Clr Calc Pharmacy 69.4 ml/min; Potassium 4.3 mmol/L (3.5-5.1)
--- NOTE | 2024-04-17 08:20 | Hospitalist Progress Note ---
Date of Service April 17, 2024 Assessment & Plan (1) Acute pulmonary embolism: Plan: malignancy associated VTE IV heparin transition to eliquis po TTE :no significant right heart strain. Consulted pulmonary for hypoxia/hypercapnea. Hypoxia is combination of COPD as well as acute pulmonary emboli Hypercapnia is likely from underlying COPD, typically on home oxygen of 2 liters recommending home ventilator completed acetazolamide. 250 mg BID for 2 days. 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 cannot be cared for at home, consider snf Consult radiation oncology: plan is for 5 days of radiation therapy. tx [id number] and 14 [facility] to [facility] after that Acetaminophen 1g IV PRN for pain, avoiding opiates overnight while patient lethargic and altered (3) Sepsis: Plan: Possible source pneumonia with concern for opacification ?aspiration although this may all just be cancer, procalcitonin pending Ceftriaxone given in the ER, Unasyn + azithromycin completed course Concern for endobronchial obstruction therefore concern for aspiration, SLT consulted Incentive spirometer, flutter valve Metabolic encephalopathy, multifactorial pneumonia, uremia hypoxia CT head - no acute pathology Improved, memory is poor but is now able to be reoriented. (4) Chronic respiratory failure with hypoxia and hypercapnia: Plan: Baseline 2LPM O2 however she was not wearing this at home, appears to be at her baseline with normal pH at this time suggesting chronic hypercapnia Aim O2 sats 88-82% Hypoxia is combination of COPD as well as acute pulmonary emboli Hypercapnia is likely from underlying COPD Due to chronic respiratory failure consequent to COPD, patient now requires a noninvasive home ventilator. This severe COPD is resulting in inability to do proper ventilation causing recurrent hypercapnic respiratory failure with a PaCo2 of 70. Patient would benefit greatly from noninvasive ventilation which would improve lung function and potentially reduce worsening of symptoms. A BiPAP would be ineffective as patient requires a volume targeted mode. Interruption of ventilator support would lead to a decline of health status. NIMV settings should be AVAPS-AE; Breath rate: auto; Inspiratory time:auto; Sigh: off; Tidal Volume: 350-450, PS min: 4-10 PS max: 12-20; EPAP min: 6-10; EPAP max: 10-16; AVAPS rate: 14 during sleep and as needed (5) RICKY (acute kidney injury): Plan: Suspected pre-renal.resolved. now ckd 3 (6) Diabetes mellitus type 2 with complications, uncontrolled: Plan: HbA1C 7.6 in 2021, repeat with AM labs Hold metformin resume at dc Novolog: --Goal BSG Range: Low 110 mg/dL, High 140 mg/dL --Correction Factor: 45 mg/dL/unit No carb coverage --BSGs ACHS if eating, q6h if npo Add basal dosing if requiring frequent doses of Novolog Plan Rehab placement: awaiting also 5 days of radiation therapy, concludes 04/21 Admission and Anticipated Discharge Date Admission Date: April 09, 2024 Subjective pt has no new concerns, has good appetite. she has some misunderstanding about her XRT, after treatment will consider [facility] Physical Exam Physical Exam: pt is doing well, cardiac is regular with murmur lungs are diminished at the bases abd is soft and non tender Results & Data Results & Data Vital Signs (Past 12 Hours) Vital Signs Temp Pulse Pulse Resp BP Pulse Ox O2 Del Method 04/17/24 07:35 90 24 95 BiPAP 04/17/24 05:21 99 H 20 97 04/17/24 05:20 99 H 22 97 BiPAP 04/17/24 03:30 98.2 F 86 18 120/76 98 Nasal Cannula 04/17/24 00:49 97 H 04/17/24 00:34 97.9 F 97 H 18 146/83 H 94 Nasal Cannula 04/16/24 20:50 98.1 F 96 H 20 120/64 94 Nasal Cannula O2 Flow Rate FiO2 04/17/24 07:35 30 04/17/24 05:21 30 04/17/24 05:20 30 04/17/24 03:30 2 04/17/24 00:49 04/17/24 00:34 2 04/16/24 20:50 2 Laboratory Results reviewed cbc reviewed chemistry PG Care Time/CCT Total # of Minutes Spent Total Time Spent with Patient: Total time spent is greater than 50% in coordination of care (as documented) at patient's floor/unit and/or counseling patient: Coding Level of Care Code 33133 SUB INP/OBS CARE 2/35MIN Diagnoses Other acute pulmonary embolism, unspecified whether acute cor pulmonale present I26.99 Acute cor pulmonale presence: unspecified Pulmonary embolism type: other Osteolytic lesion due to metastasis C79.51 Sepsis with acute renal failure without septic shock, due to unspecified organism, unspecified acute renal failure type A41.9; R65.20; N17.9 Acute renal failure type: unspecified Sepsis acute organ dysfunction status: with acute organ dysfunction Sepsis type: sepsis due to unspecified organism Severe sepsis acute organ dysfunction type: acute renal failure Severe sepsis shock status: without septic shock Chronic respiratory failure with hypoxia and hypercapnia J96.11; J96.12 RICKY (acute kidney injury) N17.9 Diabetes mellitus type 2 with complications, uncontrolled (1) Acute pulmonary embolism Acute cor pulmonale presence: unspecified Pulmonary embolism type: other Qualified Code(s): I26.99 - Other pulmonary embolism without acute cor pulmonale (3) Sepsis Acute renal failure type: unspecified Sepsis acute organ dysfunction status: with acute organ dysfunction Sepsis type: sepsis due to unspecified organism Severe sepsis acute organ dysfunction type: acute renal failure Severe sepsis shock status: without septic shock Qualified Code(s): A41.9 - Sepsis, unspecified organism; R65.20 - Severe sepsis without septic shock; N17.9 - Acute kidney failure, unspecified
[2024-04-18] MEDS: ALBUT/IPRATROP 3MG/0.5MG NEB 3 ML VIAL NEB PRN (13:52)
--- NOTE | 2024-04-18 16:25 | Hospitalist Progress Note ---
Date of Service April 18, 2024 Assessment & Plan (1) Acute pulmonary embolism: Plan: malignancy associated VTE IV heparin transition to eliquis po TTE :no significant right heart strain. Consulted pulmonary for hypoxia/hypercapnea. Hypoxia is combination of COPD as well as acute pulmonary emboli Hypercapnia is likely from underlying COPD, typically on home oxygen of 2 liters recommending home ventilator completed acetazolamide. 250 mg BID for 2 days. 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 cannot be cared for at home, consider snf Consult radiation oncology: plan is for 5 days of radiation therapy. tx [id number] and 14 [facility] after that Acetaminophen 1g IV PRN for pain, avoiding opiates overnight while patient lethargic and altered (3) Sepsis: Plan: Possible source pneumonia with concern for opacification ?aspiration although this may all just be cancer, procalcitonin pending Ceftriaxone given in the ER, Unasyn + azithromycin completed course Concern for endobronchial obstruction therefore concern for aspiration, SLT consulted Incentive spirometer, flutter valve Metabolic encephalopathy, multifactorial pneumonia, uremia hypoxia CT head - no acute pathology Improved, memory is poor but is now able to be reoriented. (4) Chronic respiratory failure with hypoxia and hypercapnia: Plan: Baseline 2LPM O2 however she was not wearing this at home, appears to be at her baseline with normal pH at this time suggesting chronic hypercapnia Aim O2 sats 88-82% Hypoxia is combination of COPD as well as acute pulmonary emboli Hypercapnia is likely from underlying COPD Due to chronic respiratory failure consequent to COPD, patient now requires a noninvasive home ventilator. This severe COPD is resulting in inability to do proper ventilation causing recurrent hypercapnic respiratory failure with a PaCo2 of 70. Patient would benefit greatly from noninvasive ventilation which would improve lung function and potentially reduce worsening of symptoms. A BiPAP would be ineffective as patient requires a volume targeted mode. Interruption of ventilator support would lead to a decline of health status. NIMV settings should be AVAPS-AE; Breath rate: auto; Inspiratory time:auto; Sigh: off; Tidal Volume: 350-450, PS min: 4-10 PS max: 12-20; EPAP min: 6-10; EPAP max: 10-16; AVAPS rate: 14 during sleep and as needed (5) RICKY (acute kidney injury): Plan: Suspected pre-renal.resolved. now ckd 3 (6) Diabetes mellitus type 2 with complications, uncontrolled: Plan: HbA1C 7.6 in 2021, repeat with AM labs Hold metformin resume at dc Novolog: --Goal BSG Range: Low 110 mg/dL, High 140 mg/dL --Correction Factor: 45 mg/dL/unit No carb coverage --BSGs ACHS if eating, q6h if npo Add basal dosing if requiring frequent doses of Novolog Plan Rehab placement: awaiting also 5 days of radiation therapy, concludes 04/21 Admission and Anticipated Discharge Date Admission Date: April 09, 2024 Subjective pt has no new concerns, has good appetite. she has some misunderstanding about her XRT, after treatment will consider [facility] Physical Exam Physical Exam: pt is doing well, cardiac is regular with murmur lungs are diminished at the bases abd is soft and non tender Results & Data Results & Data Vital Signs (Past 12 Hours) Vital Signs Temp Pulse Pulse Resp BP Pulse Ox O2 Del Method 04/18/24 14:26 Nasal Cannula 04/18/24 13:52 106 H 17 Nasal Cannula 04/18/24 11:48 97.9 F 100 H 20 136/78 93 Nasal Cannula 04/18/24 08:00 97 H 04/18/24 08:00 Nasal Cannula 04/18/24 08:00 97.9 F 90 18 134/82 100 Nasal Cannula 04/18/24 07:46 93 H 20 95 Nasal Cannula O2 Flow Rate 04/18/24 14:26 2 04/18/24 13:52 3 04/18/24 11:48 2.0 04/18/24 08:00 04/18/24 08:00 2 04/18/24 08:00 2.0 04/18/24 07:46 2 PG Care Time/CCT Total # of Minutes Spent Total Time Spent with Patient: Total time spent is greater than 50% in coordination of care (as documented) at patient's floor/unit and/or counseling patient: Coding Level of Care Code 90229 SUB INP/OBS CARE 2/35MIN Diagnoses Other acute pulmonary embolism, unspecified whether acute cor pulmonale present I26.99 Pulmonary embolism type: other Acute cor pulmonale presence: unspecified Osteolytic lesion due to metastasis C79.51 Sepsis with acute renal failure without septic shock, due to unspecified organism, unspecified acute renal failure type A41.9; R65.20; N17.9 Sepsis type: sepsis due to unspecified organism Sepsis acute organ dysfunction status: with acute organ dysfunction Severe sepsis acute organ dysfunction type: acute renal failure Acute renal failure type: unspecified Severe sepsis shock status: without septic shock Chronic respiratory failure with hypoxia and hypercapnia J96.11; J96.12 RICKY (acute kidney injury) N17.9 Diabetes mellitus type 2 with complications, uncontrolled (1) Acute pulmonary embolism Pulmonary embolism type: other Acute cor pulmonale presence: unspecified Qualified Code(s): I26.99 - Other pulmonary embolism without acute cor pulmonale (3) Sepsis Sepsis type: sepsis due to unspecified organism Sepsis acute organ dysfunction status: with acute organ dysfunction Severe sepsis acute organ dysfunction type: acute renal failure Acute renal failure type: unspecified Severe sepsis shock status: without septic shock Qualified Code(s): A41.9 - Sepsis, unspecified organism; R65.20 - Severe sepsis without septic shock; N17.9 - Acute kidney failure, unspecified
[2024-04-19 05:55] LABS: Hematocrit (blood only) 29.5 % (37.0-47.0); Hemoglobin 9.2 g/dl (12.0-16.0); Mean Corpuscular Hemoglobin 28.2 pg (25.0-34.0); Mean Corpuscular Hgb Conc 31.2 g/dL (32.0-36.0); Mean Corpuscular Volume 90.5 fL (80.0-100.0); Mean Platelet Volume 10.4 fL (9.4-12.4); Platelet Count 235 K/uL (130-400); RDW Coefficient of Variation 15.5 % (11.5-14.5); RDW Standard Deviation 50.4 fL (36.4-46.3); Red Blood Count 3.26 M/uL (4.20-5.40)
--- NOTE | 2024-04-19 13:23 | Hospitalist Progress Note ---
Date of Service April 19, 2024 Assessment & Plan (1) Acute pulmonary embolism: Plan: malignancy associated VTE IV heparin transition to eliquis po TTE :no significant right heart strain. Consulted pulmonary for hypoxia/hypercapnea. Hypoxia is combination of COPD as well as acute pulmonary emboli Hypercapnia is likely from underlying COPD, typically on home oxygen of 2 liters recommending home ventilator completed acetazolamide. 250 mg BID for 2 days. 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 cannot be cared for at home, consider snf Consult radiation oncology: plan is for 5 days of radiation therapy. tx [id number] and 14 [facility] to [facility] after that Acetaminophen 1g IV PRN for pain, avoiding opiates overnight while patient lethargic and altered (3) Sepsis: Plan: Possible source pneumonia with concern for opacification ?aspiration although this may all just be cancer, procalcitonin pending Ceftriaxone given in the ER, Unasyn + azithromycin completed course Concern for endobronchial obstruction therefore concern for aspiration, SLT consulted Incentive spirometer, flutter valve Metabolic encephalopathy, multifactorial pneumonia, uremia hypoxia CT head - no acute pathology Improved, memory is poor but is now able to be reoriented. (4) Chronic respiratory failure with hypoxia and hypercapnia: Plan: Baseline 2LPM O2 however she was not wearing this at home, appears to be at her baseline with normal pH at this time suggesting chronic hypercapnia Aim O2 sats 88-82% Hypoxia is combination of COPD as well as acute pulmonary emboli Hypercapnia is likely from underlying COPD Due to chronic respiratory failure consequent to COPD, patient now requires a noninvasive home ventilator. This severe COPD is resulting in inability to do proper ventilation causing recurrent hypercapnic respiratory failure with a PaCo2 of 70. Patient would benefit greatly from noninvasive ventilation which would improve lung function and potentially reduce worsening of symptoms. A BiPAP would be ineffective as patient requires a volume targeted mode. Interruption of ventilator support would lead to a decline of health status. NIMV settings should be AVAPS-AE; Breath rate: auto; Inspiratory time:auto; Sigh: off; Tidal Volume: 350-450, PS min: 4-10 PS max: 12-20; EPAP min: 6-10; EPAP max: 10-16; AVAPS rate: 14 during sleep and as needed (5) RICKY (acute kidney injury): Plan: Suspected pre-renal.resolved. now ckd 3 (6) Diabetes mellitus type 2 with complications, uncontrolled: Plan: HbA1C 7.6 in 2021, repeat with AM labs Hold metformin resume at dc Novolog: --Goal BSG Range: Low 110 mg/dL, High 140 mg/dL --Correction Factor: 45 mg/dL/unit No carb coverage --BSGs ACHS if eating, q6h if npo Add basal dosing if requiring frequent doses of Novolog Plan Rehab placement: awaiting also 5 days of radiation therapy, concludes 04/21 Admission and Anticipated Discharge Date Admission Date: April 09, 2024 Subjective pt has no new concerns, has good appetite. she has some misunderstanding about her XRT, after treatment will consider [facility] Physical Exam Physical Exam: pt is doing well, cardiac is regular with murmur lungs are diminished at the bases abd is soft and non tender Results & Data Results & Data Vital Signs (Past 12 Hours) Vital Signs Temp Pulse Pulse Resp BP BP Pulse Ox 04/19/24 10:52 98.2 F 96 H 16 119/64 93 04/19/24 08:00 95 H 04/19/24 08:00 04/19/24 07:37 98 H 20 96 04/19/24 07:13 98.1 F 104 H 20 147/77 H 92 04/19/24 06:40 95 H 04/19/24 02:45 98.1 F 96 H 18 102/65 95 04/19/24 02:24 100 H 18 96 O2 Del Method O2 Flow Rate FiO2 04/19/24 10:52 Nasal Cannula 2 04/19/24 08:00 04/19/24 08:00 Nasal Cannula 2 04/19/24 07:37 Nasal Cannula 2 04/19/24 07:13 Nasal Cannula 2 04/19/24 06:40 04/19/24 02:45 CPAP 04/19/24 02:24 30 PG Care Time/CCT Total # of Minutes Spent Total Time Spent with Patient: Total time spent is greater than 50% in coordination of care (as documented) at patient's floor/unit and/or counseling patient: Coding Level of Care Code 10740 SUB INP/OBS CARE 25MIN Diagnoses Other acute pulmonary embolism, unspecified whether acute cor pulmonale present I26.99 Pulmonary embolism type: other Acute cor pulmonale presence: unspecified Osteolytic lesion due to metastasis C79.51 Sepsis with acute renal failure without septic shock, due to unspecified organism, unspecified acute renal failure type A41.9; R65.20; N17.9 Sepsis type: sepsis due to unspecified organism Sepsis acute organ dysfunction status: with acute organ dysfunction Severe sepsis acute organ dysfunction type: acute renal failure Acute renal failure type: unspecified Severe sepsis shock status: without septic shock Chronic respiratory failure with hypoxia and hypercapnia J96.11; J96.12 RICKY (acute kidney injury) N17.9 Diabetes mellitus type 2 with complications, uncontrolled (1) Acute pulmonary embolism Pulmonary embolism type: other Acute cor pulmonale presence: unspecified Qualified Code(s): I26.99 - Other pulmonary embolism without acute cor pulmonale (3) Sepsis Sepsis type: sepsis due to unspecified organism Sepsis acute organ dysfunction status: with acute organ dysfunction Severe sepsis acute organ dysfunction type: acute renal failure Acute renal failure type: unspecified Severe sepsis shock status: without septic shock Qualified Code(s): A41.9 - Sepsis, unspecified organism; R65.20 - Severe sepsis without septic shock; N17.9 - Acute kidney failure, unspecified
[2024-04-19] MEDS: POLYETHYLENE (MIRALAX) 17 GM PACK PO SCH (20:19)
--- NOTE | 2024-04-20 16:45 | Hospitalist Progress Note ---
Date of Service April 20, 2024 Assessment & Plan (1) Acute pulmonary embolism: Plan: malignancy associated VTE IV heparin transition to eliquis po TTE :no significant right heart strain. Consulted pulmonary for hypoxia/hypercapnea. Hypoxia is combination of COPD as well as acute pulmonary emboli Hypercapnia is likely from underlying COPD, typically on home oxygen of 2 liters recommending home ventilator completed acetazolamide. 250 mg BID for 2 days. Acute hematuria:resolved Loose black stools x3 on 04/19 - Hemeoccult stool positive - Recheck hemoglobin (hgb 9.2 on 04/19) > If continues to drop, HOLD Eliquis > If stable, continue Eliquis. Consider colonoscopy in outpatient setting > Given metastatic disease and acute PE, would recommend continuing Eliquis if able/stable 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: Plan: Reportedly started having pain in the center of her back in the Summer 04/14/24 palliative care discussion. cannot be cared for at home, consider snf Consult radiation oncology: plan is for 5 days of radiation therapy. tx [id number] and 14 [facility] after that Acetaminophen 1g IV PRN for pain, avoiding opiates while patient lethargic and altered (3) Sepsis: Plan: Possible source pneumonia with concern for opacification ?aspiration although this may all just be cancer, procalcitonin pending Ceftriaxone given in the ER, Unasyn + azithromycin completed course Concern for endobronchial obstruction therefore concern for aspiration, SLT consulted Incentive spirometer, flutter valve Metabolic encephalopathy, multifactorial pneumonia, uremia hypoxia CT head - no acute pathology Improved, memory is poor but is now able to be reoriented. (4) Chronic respiratory failure with hypoxia and hypercapnia: Plan: Baseline 2LPM O2 however she was not wearing this at home, appears to be at her baseline with normal pH at this time suggesting chronic hypercapnia Aim O2 sats 88-82% Hypoxia is combination of COPD as well as acute pulmonary emboli Hypercapnia is likely from underlying COPD Due to chronic respiratory failure consequent to COPD, patient now requires a noninvasive home ventilator. This severe COPD is resulting in inability to do proper ventilation causing recurrent hypercapnic respiratory failure with a PaCo2 of 70. Patient would benefit greatly from noninvasive ventilation which would improve lung function and potentially reduce worsening of symptoms. A BiPAP would be ineffective as patient requires a volume targeted mode. Interruption of ventilator support would lead to a decline of health status. NIMV settings should be AVAPS-AE; Breath rate: auto; Inspiratory time:auto; Sigh: off; Tidal Volume: 350-450, PS min: 4-10 PS max: 12-20; EPAP min: 6-10; EPAP max: 10-16; AVAPS rate: 14 during sleep and as needed (5) RICKY (acute kidney injury): Plan: Suspected pre-renal.resolved. now ckd 3 (6) Diabetes mellitus type 2 with complications, uncontrolled: Plan: HbA1C 7.6 in 2021, repeat with AM labs Hold metformin resume at dc Novolog: --Goal BSG Range: Low 110 mg/dL, High 140 mg/dL --Correction Factor: 45 mg/dL/unit No carb coverage --BSGs ACHS if eating, q6h if npo Add basal dosing if requiring frequent doses of Novolog Plan Rehab placement: awaiting also 5 days of radiation therapy, concludes 04/21 Admission and Anticipated Discharge Date Admission Date: April 09, 2024 Supervising Physician Co-Signing Physician Notes chart reviewed and case d/w S Gross PAC. awaiting XRT tomorrow then anticipate rehab. stool heme (+) but with stable hemodynamics, active cancer, current PE - risks/benefits favor continuing anticoagulation unless truly have to hold due to blood loss. follow Hgb, but continue eliquis for now Subjective Patient seen and evaluated in bedside chair. She reports having a good appetite and that she slept well last night. She denies any pain at this time. She reports no pain since her radiation treatments. She had loose black stools x 3 yesterday, however no episodes of diarrhea today. We discussed the plan of fifth and final dose of radiation treatment tomorrow, then rehab can be considered at that time. No additional complaints or concerns at this time. Physical Exam Physical Exam: General: No acute distress, nondiaphoretic, frail elderly female. Cardiac: Regular rate and rhythm. Systolic murmur noted. Pulm: Breath sounds diminished at bases but otherwise clear to auscultation bilaterally without wheezes, rales or rhonchi. No respiratory distress. 96% on 2 L. Abdominal: Soft, nontender, nondistended. Bowel sounds present. Neuro: A&O x3. No focal neurological deficits. Results & Data Results & Data Vital Signs (Past 12 Hours) Vital Signs Temp Pulse Pulse Resp BP Pulse Ox O2 Del Method 04/20/24 15:23 98.6 F 95 H 18 111/60 96 Nasal Cannula 04/20/24 11:29 98.8 F 100 H 20 131/72 97 Nasal Cannula 04/20/24 08:00 93 H 04/20/24 08:00 Nasal Cannula 04/20/24 07:51 94 H 17 96 Nasal Cannula 04/20/24 07:37 98.6 F 96 H 18 127/69 97 Nasal Cannula O2 Flow Rate 04/20/24 15:23 2 04/20/24 11:29 2 04/20/24 08:00 04/20/24 08:00 2 04/20/24 07:51 2 04/20/24 07:37 2 Laboratory Results Hemoglobin ordered, pending PG Care Time/CCT Total # of Minutes Spent Total Time Spent with Patient: Total time spent is greater than 50% in coordination of care (as documented) at patient's floor/unit and/or counseling patient: Coding Level of Care Code 49913 SUB INP/OBS CARE 2/35MIN Diagnoses Other acute pulmonary embolism, unspecified whether acute cor pulmonale present I26.99 Acute cor pulmonale presence: unspecified Pulmonary embolism type: other Osteolytic lesion due to metastasis C79.51 Sepsis with acute renal failure without septic shock, due to unspecified organism, unspecified acute renal failure type A41.9; R65.20; N17.9 Acute renal failure type: unspecified Sepsis acute organ dysfunction status: with acute organ dysfunction Sepsis type: sepsis due to unspecified organism Severe sepsis acute organ dysfunction type: acute renal failure Severe sepsis shock status: without septic shock Chronic respiratory failure with hypoxia and hypercapnia J96.11; J96.12 RICKY (acute kidney injury) N17.9 Diabetes mellitus type 2 with complications, uncontrolled (1) Acute pulmonary embolism Acute cor pulmonale presence: unspecified Pulmonary embolism type: other Qualified Code(s): I26.99 - Other pulmonary embolism without acute cor pulmonale (3) Sepsis Acute renal failure type: unspecified Sepsis acute organ dysfunction status: with acute organ dysfunction Sepsis type: sepsis due to unspecified organism Severe sepsis acute organ dysfunction type: acute renal failure Severe sepsis shock status: without septic shock Qualified Code(s): A41.9 - Sepsis, unspecified organism; R65.20 - Severe sepsis without septic shock; N17.9 - Acute kidney failure, unspecified
[2024-04-21 05:19] LABS: Basophils # (auto) 0.03 K/uL (0.00-0.20); Basophils % (auto) 0.6 %; Eosinophils # (auto) 0.19 K/uL (0.00-0.50); Eosinophils % (auto) 4.1 %; Hematocrit (blood only) 29.7 % (37.0-47.0); Hemoglobin 9.2 g/dl (12.0-16.0); Immature Granulocytes # (auto) 0.03 K/uL (0.01-0.20); Immature Granulocytes % (auto) 0.6 %; Lymphocytes # (auto) 0.84 K/uL (1.20-3.40); Lymphocytes % (auto) 18.2 %; Mean Corpuscular Hemoglobin 28.8 pg (25.0-34.0); Mean Corpuscular Volume 93.1 fL (80.0-100.0); Mean Platelet Volume 10.3 fL (9.4-12.4); Monocytes # (auto) 0.44 K/uL (0.11-0.59); Monocytes % (auto) 9.5 %; Neutrophils # (auto) 3.09 K/uL (1.40-6.50); Platelet Count 233 K/uL (130-400); RDW Coefficient of Variation 15.9 % (11.5-14.5); RDW Standard Deviation 54.1 fL (36.4-46.3); Red Blood Count 3.19 M/uL (4.20-5.40); White Blood Count 4.62 K/ul (4.8-10.8)
[2024-04-21 05:32] LABS: BUN Creatinine Ratio 34.1 (10-20); Calcium 9.4 mg/dl (8.6-10.3); Creatinine Clr Calc Pharmacy 88.3 ml/min; Potassium 4.1 mmol/L (3.5-5.1)
--- NOTE | 2024-04-21 11:13 | Discharge Summary ---
Discharge Summary Date of Service April 21, 2024 Principal Dx & Hospital Course #1 = Principal Diagnosis (1) Acute pulmonary embolism: malignancy associated VTE IV heparin transition to eliquis po TTE :no significant right heart strain. Consulted pulmonary for hypoxia/hypercapnea. Hypoxia is combination of COPD as well as acute pulmonary emboli Hypercapnia is likely from underlying COPD, typically on home oxygen of 2 liters recommending home ventilator completed acetazolamide. 250 mg BID for 2 days. Acute hematuria:resolved Loose black stools x3 on 04/19 - Hemeoccult stool positive - Recheck hemoglobin (hgb 9.2 on 04/19) > If continues to drop, HOLD Eliquis > If stable, continue Eliquis. Consider colonoscopy in outpatient setting > Given metastatic disease and acute PE, will continue Eliquis. 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: Reportedly started having pain in the center of her back in the Summer 04/14/24 palliative care discussion. cannot be cared for at home, consider snf Consult radiation oncology: plan is for 5 days of radiation therapy. tx [id number] and 14 [facility] after that Acetaminophen 1g IV PRN for pain, avoiding opiates while patient lethargic and altered (3) Sepsis: Possible source pneumonia with concern for opacification ?aspiration although this may all just be cancer, procalcitonin pending Ceftriaxone given in the ER, Unasyn + azithromycin completed course Concern for endobronchial obstruction therefore concern for aspiration, SLT consulted Incentive spirometer, flutter valve Metabolic encephalopathy, multifactorial pneumonia, uremia hypoxia CT head - no acute pathology Improved, memory is poor but is now able to be reoriented. (4) Chronic respiratory failure with hypoxia and hypercapnia: Baseline 2LPM O2 however she was not wearing this at home, appears to be at her baseline with normal pH at this time suggesting chronic hypercapnia Aim O2 sats 88-82% Hypoxia is combination of COPD as well as acute pulmonary emboli Hypercapnia is likely from underlying COPD Due to chronic respiratory failure consequent to COPD, patient now requires a noninvasive home ventilator. This severe COPD is resulting in inability to do proper ventilation causing recurrent hypercapnic respiratory failure with a PaCo2 of 70. Patient would benefit greatly from noninvasive ventilation which would improve lung function and potentially reduce worsening of symptoms. A BiPAP would be ineffective as patient requires a volume targeted mode. Interruption of ventilator support would lead to a decline of health status. NIMV settings should be AVAPS-AE; Breath rate: auto; Inspiratory time:auto; Sigh: off; Tidal Volume: 350-450, PS min: 4-10 PS max: 12-20; EPAP min: 6-10; EPAP max: 10-16; AVAPS rate: 14 during sleep and as needed (5) RICKY (acute kidney injury): Suspected pre-renal.resolved. now ckd 3 (6) Diabetes mellitus type 2 with complications, uncontrolled: HbA1C 7.6 in 2021, repeat with AM labs Hold metformin resume at dc Novolog: --Goal BSG Range: Low 110 mg/dL, High 140 mg/dL --Correction Factor: 45 mg/dL/unit No carb coverage --BSGs ACHS if eating, q6h if npo Add basal dosing if requiring frequent doses of Novolog Plan Rehab placement: completed 5 days of radiation therapy Admission HPI Per Admitting Provider Annabelle Peter is an 79 year old female who presents to the ER with progressive worsening altered mental state, generalized weakness and reduced oral intake over the last 2 weeks. Today she was found with her oxygen off and much more confused than her baseline therefore daughter called EMS. Her daughter also notes patient having severe thoracic back pain since the summer after moving furniture, planning on starting PT at home. The patient denies any fever, chills, chest pain, shortness of breath, headache, abdominal pain, nausea, vomiting, diarrhea or urinary symptoms. She has a notable prior history of breast cancer. In 2021 she was under pulmonology with concerns for lung cancer at that time with advice to get PET sc an and CT guided biopsy per note although her daughter reports they were told it was getting smaller and did not need a biopsy. This does not appear to have been followed up with ongoing imaging. Discharge Exam Constitutional well developed; + not well nourished and no acute distress Eyes PERRL, conjunctivae normal, anicteric sclerae Respiratory normal respiratory effort Auscultation: + crackles; no diminished lung sounds and no wheezes Cardiovascular Rate/Rhythm: regular rhythm and + tachycardic Heart Sounds: no murmur Extremities: normal capillary refill; no calf tenderness and no pedal edema Gastrointestinal (Abdomen) normal bowel sounds, soft, nontender, no hepatosplenomegaly Skin no rashes, warm and dry Neurologic moves all extremities (difficulty following commands but moving all 4 extremities), awake and + confused; no focal motor deficits (no unilateral deficit) Psychiatric Orientation: alert and oriented to person; + not oriented to place and + not oriented to time Discharge Plan Discharge Items Patient Disposition: Transfer Inpatient Rehab Fac Reason For Visit: SEPSIS, RICKY, PNA Discharge Diagnosis: sepsis Activity: Resume your previous activity Non-emergency contact: Primary Care Provider Call non-emergency contact if: you have any medication questions Follow-up/Referrals: Devan Neil PA-C [Primary Care Provider] - Diet: Carb Consistent or DM2 Diet Texture: Easy to Chew Addtl Attending Provider Instructions: On Doac for Pulmonary embolism. urrently on 2 tablets BID dose. Will taper patient on 10 PM to regualr 5 mg dose. Continue with budesonide.Was on nebulized formeterol as well but will resume home LABA/LAMA. Mucinex and flutter valve for chest congestion NIMV settings should be AVAPS-AE; Breath rate: auto; Inspiratory time:auto; Sigh: off; Tidal Volume: 350-450, PS min: 4-10 PS max: 12-20; EPAP min: 6-10; EPAP max: 10-16; AVAPS rate: 14 during sleep and as needed Case management is working on getting the patient AVAPS machine on discharge. Recommend followup with PCP in 1-2 week. Pending Studies at Discharge: No Stand-Alone Forms: [facility] Skilled Items Patient informed of condition?: Yes DNR: Yes Discharge Level of Care: Acute rehab Communicable Disease: Yes Discharge Prognosis: Stable Lines: None Urinary Catheter: No Medications and DC Order Prescriptions: New Eliquis 5 mg Tablet 10 mg PO Q12H Qty: 0 0RF Rx Instructions: last dose on 1015 AM Eliquis 5 mg Tablet 5 mg PO BID Qty: 0 0RF Rx Instructions: first dose on 1015 PM acetaminophen 325 mg Tablet 650 mg PO Q4H PRN (Reason: pain) Qty: 10 0RF budesonide 0.5 mg/2 mL Suspension For Nebulization 0.5 mg NEB BIDR Qty: 30 0RF guaifenesin [Mucinex] 600 mg Tablet Extended Release 12hr 600 mg PO Q12 Qty: 0 0RF Continued (DME) Oxygen Home Liters Per Minute See Rx Instructions .Route Qty: 1 0RF Rx Instructions: Humidification for oxygen -LON99 Stiolto Respimat 2.5-2.5 mcg/actuation mist 2 puff inhalation DAILY Qty: 4 2RF aspirin 81 mg Tablet,Delayed Release (Dr/Ec) 81 mg PO QAM Qty: 30 0RF (DME) Oxygen Home Liters Per Minute See Rx Instructions .Route Qty: 1 0RF Rx Instructions: As directed albuterol sulfate 90 mcg/actuation HFA aerosol inhaler 2 inh inhalation Q6H PRN (Reason: shortness of breath or wheezing) Qty: 6.7 1RF (DME) Ultra-Light Rollator Misc See Rx Instructions .Route Qty: 1 0RF Rx Instructions: As directed metformin 500 mg tablet 500 mg PO DAILY potassium chloride 10 mEq tablet,ER particles/crystals 0 meq PO DAILY Rx Instructions: TAKE ONE TABLET BY MOUTH EVERY DAY FOR 10 DAYS 04/03/24 Discontinued lisinopril 5 mg tablet 5 mg PO DAILY cefuroxime axetil 250 mg tablet 0 mg PO USEASDIRECTD Rx Instructions: TAKE ONE TABLET BY MOUTH TWICE A DAY FOR 10 DAYS. Discharge Orders: Discharge Order (Routine); Ordered 04/21/24 Ordered By: Dada Magallon Admission Data Admit Date/Time: 04/09/24 20:30 Attending Provider: Dada Magallon Admit Provider: Philipp Sheikh Primary Care Provider: Devan Neil Other Providers: Rin Jama; Philippe Velasco; [facility] Other Interventions: Discharge Summary Assessment (RN) Last Done: 04/21/24 14:40 Hospital Stay Data Consultations 04/09/24 18:57 ED Decision to Admit Stat 04/09/24 22:51 Consult Palliative Care Routine Consult Radiation Oncology Routine 04/10/24 14:02 Consult Pulmonology Routine Diagnostic Imagining Performed 04/09/24 19:04 CT for pulmonary embolism PE [CT angio chest PE protocol] Stat CT head/brain wo con Stat 04/10/24 12:20 CT guide rad therapy abdomen Routine 04/10/24 15:27 US venous doppler LE BI Routine Pending Results Patient Have Any Pending Studies at Discharge: No Discharge Instructions Given to Patient (Per Discharging Provider) On Doac for Pulmonary embolism. urrently on 2 tablets BID dose. Will taper patient on 10/15 PM to regualr 5 mg dose. Continue with budesonide.Was on nebulized formeterol as well but will resume home LABA/LAMA. Mucinex and flutter valve for chest congestion NIMV settings should be AVAPS-AE; Breath rate: auto; Inspiratory time:auto; Sigh: off; Tidal Volume: 350-450, PS min: 4-10 PS max: 12-20; EPAP min: 6-10; EPAP max: 10-16; AVAPS rate: 14 during sleep and as needed Case management is working on getting the patient AVAPS machine on discharge. Recommend followup with PCP in 1-2 week. Total Time Total Time Spent Total Time Spent (In Minutes): 35 Coding Level of Care Code 88122 INP/OBS DISCH >30 MIN Diagnoses Other acute pulmonary embolism, unspecified whether acute cor pulmonale present I26.99 Acute cor pulmonale presence: unspecified Pulmonary embolism type: other Osteolytic lesion due to metastasis C79.51 Sepsis with acute renal failure without septic shock, due to unspecified organism, unspecified acute renal failure type A41.9; R65.20; N17.9 Acute renal failure type: unspecified Sepsis acute organ dysfunction status: with acute organ dysfunction Sepsis type: sepsis due to unspecified organism Severe sepsis acute organ dysfunction type: acute renal failure Severe sepsis shock status: without septic shock Chronic respiratory failure with hypoxia and hypercapnia J96.11; J96.12 RICKY (acute kidney injury) N17.9 Diabetes mellitus type 2 with complications, uncontrolled
[2024-04-21 11:17] VITALS: RESP 18; TEMP 99; O2SAT 95
[2024-04-21 14:41] VITALS: BP 122/75; PULSE 92
[2024-04-22] MEDS ORDERED: APIXABAN 5 MG TABLET PO SCH (21:00)
--- NOTE | 2024-04-28 13:07 | Coding Query ---
CODING QUERY FOR UNCONTROLLED DIABETES To promote full compliance with coding requirements relating to patient care, provider participation is requested in all cases of senior telecommunications specialist uncertainty. Please assist us with the question(s) below: Coding Question: The term uncontrolled Diabetes was used throughout the record. To be able to code this diagnosis properly, could you please clarify the diagnosis below: ( ) Uncontrolled Diabetes meaning hypoglycemia ( x ) Uncontrolled Diabetes meaning hyperglycemia ( ) Other (please specify) Principal Diagnosis: "that condition established after study, to be chiefly responsible for occasioning the admission of the patient to the hospital for care." Co-Existing Principal Diagnosis: "when two or more diagnoses equally meet the criteria for principal diagnosis as determined by the circumstances of admission, diagnostic work up, and/or therapy provided, and the Alphabetic Index, Tabular List, or another coding guideline does not provide sequencing direction, any one of the diagnoses may be sequenced first." "When the physician has documented what appears to be a current diagnosis in the body of the record, but has not included the diagnosis in the final diagnostic statement, the physician should be asked whether the diagnosis should be added." ([facility] 2 QTR90. p3-4) PROMISE
== END 2024-04-21 15:10 | DRG 175 ==
LOC: ED 16:44 → 4W 20:30 → SUATTDRO 20:30 → 4W 22:00